=== PATIENT | male | born 1940 | race Caucasian/White ===

== ENCOUNTER 2020-01-21 19:17 | Inpatient (IN) ==
[2020-01-21] MEDS ORDERED: CEFEPIME 2,000 MG/20 ML VIAL IV STA (19:30)
[2020-01-21] MEDS ORDERED: SODIUM CHLORIDE 0.9% 1000ML 1,000 ML IV SCH (19:30)
[2020-01-21] MEDS ORDERED: ACETAMINOPHEN 1,000 MG/100 ML VIAL IV STA (19:34)
--- NOTE | 2020-01-21 19:37 | Emergency Department Note ---
Impression & Plan Hypoxia, Atrial fibrillation with rapid ventricular response, Pneumonia, COVID- 19, Elevated troponin ED Provider Note NAME: MARISA Calderon [id number] MAHKOVEC AGE: 79 SEX: M : 1940 ARRIVES VIA: Ambulance INFORMANT: [Patient][ems, guards] ED PROVIDER(S): [John Ahumada MD] CHIEF COMPLAINT: Illness HISTORY OF PRESENT ILLNESS: The patient is a 79-year-old male who is an inmate at the [facility]. The patient has not felt well for about a week or so. He just has felt washed out. Yesterday, he had some diarrhea, no vomiting. No diarrhea today. He has had a slight stuffy nose and a slight cough. Today, he was noted to be tachycardic, he seemed short of breath as per the penitentiary staff. The patient was sent by EMS for evaluation. The patient currently denies any breathing difficulty. He denies any chest pain. He has no abdominal pain. He denies body aches or sore throat. He has no known coronavirus exposures however, he is at [facility] and there is currently a Covid outbreak at that facility. Of note, the patient is a very poor historian. REVIEW OF SYSTEMS: See HPI for pertinent positives and negatives. A total of ten systems were reviewed and were otherwise negative. PMHx/PSHx: See Below SOCIAL HISTORY: See Below. PHYSICAL EXAM: GENERAL: Patient is in mild distress, shivering. HEENT: No acute trauma, normocephalic atraumatic, mucous membranes moist, no nasal congestion, no scleral icterus. NECK: No stridor, no adenopathy, no meningismus, trachea is midline. LUNGS: Speaks in full sentences, no respiratory distress, no obvious wheeze, slightly increased respiratory rate. HEART: Tachycardic and irregular, equal radial pulses bilaterally. ABDOMEN: Soft, nontender, bowel sounds positive, no hernias, no peritonitis. EXTREMITIES: No cyanosis or edema, full range of motion of all the joints without pain or difficulty, no signs for acute trauma. NEUROLOGIC: Oriented x 3, no acute motor or sensory deficits, no focal weakness. SKIN: No rash, no jaundice, no diaphoresis. DIFFERENTIAL DIAGNOSIS: Sepsis, UTI, pneumonia, metabolic, electrolyte abnormalities, coronavirus, influenza, rapid A. fib or a flutter, cardiac sources, intracerebral event, toxicologic, neurologic, as well as other pathologies. EMERGENCY DEPARTMENT COURSE/PROCEDURES: ECG: Indication was tachycardia. The ECG shows rapid atrial fibrillation with a rate of 128. There is some nonspecific ST change and some ST depressions laterally. No ST elevation. QTc is 478. Compared to an ECG from 22 March 2014, the rate has increased, the lateral T wave changes are more pronounced. Continuous Cardiac Monitoring: An order was placed for continuous cardiac monitoring. The monitor shows a rate of 91 with atrial fibrillation Critical Care Note: I have personally spent 42 minutes of critical care time in the direct management of this patient. This includes bedside care, interpretation of diagnostic studies, and testing, discussion with consultants, patient, and family members, and other required patient management activities. This 42 minutes is in excess of all separately billable procedures.. MEDICAL DECISION MAKING: There is no leukocytosis or concerning anemia. There is a normal platelet count. No concerning coagulopathy. Creatinine is somewhat elevated at 1.49, this could be consistent with dehydration. Lactic acid is not elevated making sepsis less likely. There were a few subtle liver enzyme elevations. ECG shows a rapid A. fib with some lateral ST depression. No ST elevation. Cardiac troponin testing was slightly elevated consistent with cardiac injury or strain or possibly mismatch. Chest film does show a right lower lung and midlung pneumonia. Covid testing returned positive. Influenza testing returned negative. On my initial exam, the patient did look somewhat short of breath. He was in a rapid A. fib. The patient was aggressively managed. He received IV Tylenol, he was given oral Motrin. Patient was given IV cefepime as empiric antibiotic coverage. He received 1 L of IV saline. Because of his hypoxia and Covid diagnosis, he was given a dose of IV dexamethasone. He received IV Lopressor to help control the heart rate. The patient's looking improved. His heart rate is now much better controlled, he looks more comfortable. Patient is in need of a hospital stay. I did speak to the patient and the guards. I spoke with case management. The on-call hospitalist has been consulted. Past Med/Surg History Medical History Atrial fibrillation Atrial fibrillation and flutter Hypertension Other nonrheumatic aortic valve disorders PAD (peripheral artery disease) Social History Smoking Status: Former smoker Tobacco Type: Cigarettes Preferred Language: German Feels Safe at Home: Yes Allergies Allergies Allergy/AdvReac Type Severity Reaction Status Date / Time No Known Allergies Allergy Verified 01/21/20 20:42 Home Meds Home Medications Medication Instructions Recorded Confirmed atorvastatin 20 mg tablet 20 mg PO HS 07/14/19 01/21/20 metoprolol tartrate 50 mg tablet 50 mg PO BID tab 07/15/19 01/21/20 aspirin 81 mg PO DAILY 01/21/20 01/21/20 Results & Data (ED) Vital Signs Vital Signs - 24 hr 01/21/20 19:32 01/21/20 19:33 01/21/20 19:45 Temperature 38.2 C H Temperature Source Oral Pulse Rate 128 H 131 H 117 H Pulse Rate from SpO2 Sensor 142 H 139 H 140 H Pulse Rhythm Regular Pulse Strength Normal Respiratory Rate 31 H 32 H 32 H Respiratory Effort / Characteristics Non-Labored Spontaneous Respiratory Depth Normal Respiratory Pattern Regular Blood Pressure 146/97 H 146/97 H Blood Pressure Mean 111 113 Blood Pressure Position Lying Pulse Oximetry 92 92 93 Oxygen Delivery Method Room Air Oxygen Flow Rate 2 Sepsis Recent Fever Within 48 Hours Yes Sepsis New/Unexplained Change in Mental Status No Sepsis Action Taken by Nursing Physician Notified 01/21/20 19:48 01/21/20 20:00 01/21/20 20:01 Temperature Temperature Source Pulse Rate 108 H Pulse Rate from SpO2 Sensor 123 H Pulse Rhythm Pulse Strength Respiratory Rate 36 H 28 H Respiratory Effort / Characteristics Short of Breath Respiratory Depth Respiratory Pattern Blood Pressure Blood Pressure Mean Blood Pressure Position Pulse Oximetry 87 L 92 94 Oxygen Delivery Method Room Air Nasal Cannula Oxygen Flow Rate 2 Sepsis Recent Fever Within 48 Hours Sepsis New/Unexplained Change in Mental Status Sepsis Action Taken by Nursing 01/21/20 20:15 01/21/20 20:16 01/21/20 20:30 Temperature Temperature Source Pulse Rate 121 H 121 H 92 H Pulse Rate from SpO2 Sensor 122 H 119 H 105 H Pulse Rhythm Pulse Strength Respiratory Rate 32 H 32 H 37 H Respiratory Effort / Characteristics Short of Breath Other Respiratory Depth Respiratory Pattern Blood Pressure 142/89 H 113/76 Blood Pressure Mean 94 78 Blood Pressure Position Pulse Oximetry 96 94 93 Oxygen Delivery Method Nasal Cannula Nasal Cannula Oxygen Flow Rate 2 2 Sepsis Recent Fever Within 48 Hours Sepsis New/Unexplained Change in Mental Status Sepsis Action Taken by Nursing 01/21/20 20:31 01/21/20 20:40 Temperature 38.8 C H Temperature Source Oral Pulse Rate 89 Pulse Rate from SpO2 Sensor 99 H Pulse Rhythm Pulse Strength Respiratory Rate 36 H Respiratory Effort / Characteristics Respiratory Depth Respiratory Pattern Blood Pressure Blood Pressure Mean Blood Pressure Position Pulse Oximetry 94 Oxygen Delivery Method Oxygen Flow Rate Sepsis Recent Fever Within 48 Hours Sepsis New/Unexplained Change in Mental Status Sepsis Action Taken by Custodial Medications Current Medication List: was personally reviewed by me Laboratory Data Attestation: I reviewed the patient's lab results. Result diagrams: 01/21/20 19:40 01/21/20 19:40 Lab Results 01/21/20 01/21/20 01/21/20 Range/Units 19:40 19:40 19:40 WBC 6.46 (4.8-10.8) K/uL RBC 4.29 L (4.7-6.1) M/uL Hgb 13.1 L (14.0-18.0) g/dL Hct 38.1 L (42-52) % MCV 88.8 (80-100) fL MCH 30.5 (25-34) pg MCHC 34.4 (32-36) g/dL RDW Std Deviation 46.1 (36.4-46.3) fL RDW Coeff of Gloria 14.1 (11.5-14.5) % Plt Count 133 (130-400) K/uL MPV 11.4 H (7.4-10.4) fL Immature Gran % (Auto) 0.3 % Neut % (Auto) 88.9 % Lymph % (Auto) 6.3 % [place] % (Auto) 4.5 % Eos % (Auto) 0.0 % Baso % (Auto) 0.0 % Neut # (Auto) 5.74 (1.4-6.5) K/uL Lymph # (Auto) 0.41 L (1.2-3.4) K/uL [place] # (Auto) 0.29 (0.11-0.59) K/uL Eos # (Auto) 0.00 (0-0.5) K/uL Baso # (Auto) 0.00 (0-0.2) K/uL Immature Gran # (Auto) 0.02 (0.00-0.02) K/uL PT 13.5 H (9.0-12.0) Seconds INR 1.3 H (0.9-1.1) APTT 30.8 (21.0-31.0) Seconds PTT Ratio 1.1 Sodium 132 L (136-145) mmol/L Potassium 3.9 (3.5-5.1) mmol/L Chloride 100 (98-107) mmol/L Carbon Dioxide 24 (21-32) mmol/L Anion Gap 8.0 (3-11) BUN 27 H (7-18) mg/dl Creatinine 1.49 H (0.6-1.4) mg/dl Est Cr Clr Drug Dosing 46.4 ml/min Est GFR ( Amer) 51.4 Est GFR (Non-Af Amer) 44.3 BUN/Creatinine Ratio 17.9 (10-20) Glucose 155 H (70-99) mg/dl Lactate (0.4-2.0) mmol/L Calcium 8.3 L (8.5-10.1) mg/dl Magnesium 1.9 (1.8-2.4) mg/dl Total Bilirubin 1.1 H (0.2-1) mg/dl AST 47 H (15-37) U/L ALT 23 (12-78) U/L Alkaline Phosphatase 68 (45-117) U/L Troponin I 0.081 H* (0-0.045) ng/ml Total Protein 7.3 (6.4-8.2) gm/dl Albumin 3.5 (3.4-5.0) gm/dl Globulin 3.8 (2.5-4.0) gm/dl Albumin/Globulin Ratio 0.9 (0.9-2) COVID-19 Eval Order Influ A Molecular Assay (Negative) Influ B Molecular Assay (Negative) SARS-CoV-2, RNA, NAAT (NEGATIVE) 01/21/20 01/21/20 01/21/20 Range/Units 19:40 19:40 19:40 WBC (4.8-10.8) K/uL RBC (4.7-6.1) M/uL Hgb (14.0-18.0) g/dL Hct (42-52) % MCV (80-100) fL MCH (25-34) pg MCHC (32-36) g/dL RDW Std Deviation (36.4-46.3) fL RDW Coeff of Gloria (11.5-14.5) % Plt Count (130-400) K/uL MPV (7.4-10.4) fL Immature Gran % (Auto) % Neut % (Auto) % Lymph % (Auto) % [place]qu[place] % (Auto) % Eos % (Auto) % Baso % (Auto) % Neut # (Auto) (1.4-6.5) K/uL Lymph # (Auto) (1.2-3.4) K/uL [place] # (Auto) (0.11-0.59) K/uL Eos # (Auto) (0-0.5) K/uL Baso # (Auto) (0-0.2) K/uL Immature Gran # (Auto) (0.00-0.02) K/uL PT (9.0-12.0) Seconds INR (0.9-1.1) APTT (21.0-31.0) Seconds PTT Ratio Sodium (136-145) mmol/L Potassium (3.5-5.1) mmol/L Chloride (98-107) mmol/L Carbon Dioxide (21-32) mmol/L Anion Gap (3-11) BUN (7-18) mg/dl Creatinine (0.6-1.4) mg/dl Est Cr Clr Drug Dosing ml/min Est GFR ( Amer) Est GFR (Non-Af Amer) BUN/Creatinine Ratio (10-20) Glucose (70-99) mg/dl Lactate (0.4-2.0) mmol/L Calcium (8.5-10.1) mg/dl Magnesium (1.8-2.4) mg/dl Total Bilirubin (0.2-1) mg/dl AST (15-37) U/L ALT (12-78) U/L Alkaline Phosphatase (45-117) U/L Troponin I (0-0.045) ng/ml Total Protein (6.4-8.2) gm/dl Albumin (3.4-5.0) gm/dl Globulin (2.5-4.0) gm/dl Albumin/Globulin Ratio (0.9-2) COVID-19 Eval [facility] A Molecular Assay Negative (Negative) Influ B Molecular Assay Negative (Negative) SARS-CoV-2, RNA, NAAT POSITIVE A* (NEGATIVE) 01/21/20 Range/Units 19:48 WBC (4.8-10.8) K/uL RBC (4.7-6.1) M/uL Hgb (14.0-18.0) g/dL Hct (42-52) % MCV (80-100) fL MCH (25-34) pg MCHC (32-36) g/dL RDW Std Deviation (36.4-46.3) fL RDW Coeff of Gloria (11.5-14.5) % Plt Count (130-400) K/uL MPV (7.4-10.4) fL Immature Gran % (Auto) % Neut % (Auto) % Lymph % (Auto) % [place] % (Auto) % Eos % (Auto) % Baso % (Auto) % Neut # (Auto) (1.4-6.5) K/uL Lymph # (Auto) (1.2-3.4) K/uL [place] # (Auto) (0.11-0.59) K/uL Eos # (Auto) (0-0.5) K/uL Baso # (Auto) (0-0.2) K/uL Immature Gran # (Auto) (0.00-0.02) K/uL PT (9.0-12.0) Seconds INR (0.9-1.1) APTT (21.0-31.0) Seconds PTT Ratio Sodium (136-145) mmol/L Potassium (3.5-5.1) mmol/L Chloride (98-107) mmol/L Carbon Dioxide (21-32) mmol/L Anion Gap (3-11) BUN (7-18) mg/dl Creatinine (0.6-1.4) mg/dl Est Cr Clr Drug Dosing ml/min Est GFR ( Amer) Est GFR (Non-Af Amer) BUN/Creatinine Ratio (10-20) Glucose (70-99) mg/dl Lactate 2.0 (0.4-2.0) mmol/L Calcium (8.5-10.1) mg/dl Magnesium (1.8-2.4) mg/dl Total Bilirubin (0.2-1) mg/dl AST (15-37) U/L ALT (12-78) U/L Alkaline Phosphatase (45-117) U/L Troponin I (0-0.045) ng/ml Total Protein (6.4-8.2) gm/dl Albumin (3.4-5.0) gm/dl Globulin (2.5-4.0) gm/dl Albumin/Globulin Ratio (0.9-2) COVID-19 Eval Order Influ A Molecular Assay (Negative) Influ B Molecular Assay (Negative) SARS-CoV-2, RNA, NAAT (NEGATIVE) Administered Medications Discontinued Medications Dexamethasone (Dexamethasone Sod Inj 10 Mg/Ml Vial) 6 mg IV NOW ONE Stop: 01/21/20 20:08 Last Admin: 01/21/20 20:15 Dose: 6 mg Documented by: [id number] Sodium Chloride (Nss 1000ml) 1,000 mls @ 999 mls/hr IV .Q1H1M ASAEL Stop: 01/21/20 20:30 Last Admin: 01/21/20 19:55 Dose: 999 mls/hr Documented by: [id number] Cefepime HCl (Maxipime) 2,000 mg in 20 mls @ 5 mls/min IV NOW STA; Protocol Stop: 01/21/20 19:33 Last Admin: 01/21/20 20:15 Dose: 5 mls/min Documented by: [id number] Acetaminophen (Ofirmev) 1,000 mg in 100 mls @ 400 mls/hr IV NOW STA Stop: 01/21/20 19:48 Last Infusion: 01/21/20 20:10 Dose: 0 mls/hr Documented by: [id number] Admin: 01/21/20 19:55 Dose: 400 mls/hr Documented by: [id number] Metoprolol Tartrate (Metoprolol Tartrate 1 Mg/Ml Vial) 5 mg IV NOW STA Stop: 01/21/20 20:08 Last Admin: 01/21/20 20:15 Dose: 5 mg Documented by: [id number] Imaging Data Radiologist's Impression: XR chest 1V portable HISTORY: SEPSIS COMPARISON: Chest 03/22/2014. FINDINGS: No pneumothorax. No pleural effusions. The heart remains mildly enlarged. Mild diffuse interstitial/vascular thickening. There are hazy airspace opacities within the right perihilar location and lower lung zone. IMPRESSION: 1. Hazy airspace opacities within the right perihilar location and lower lung zone. This may represent a viral pneumonia. One-month chest x-ray follow-up recommended to ensure resolution of the right hilar hazy airspace opacity. 2. Cardiomegaly and mild diffuse interstitial/vascular thickening. This could represent a superimposed pulmonary edema. Discharge Plan Visit Data Chief Complaint: Illness Stated Complaint: LETHARGIC, WEAK, SOB, COUGH ED Provider: John Ahumada Discharge Problem: Hypoxia, Atrial fibrillation with rapid ventricular response, Pneumonia, COVID- 19, Elevated troponin Patient Disposition: Admitted As Inpatient Condition: Fair Forms Stand Alone Forms: [employer] Prescriptions Prescriptions: No Action atorvastatin 20 mg tablet 20 mg PO HS RF: 0 metoprolol tartrate 50 mg tablet 50 mg PO BID RF: 0 aspirin 81 mg Tablet,Chewable 81 mg PO DAILY RF: 0 Referrals Referrals: Wang ELIZONDO [Primary Care Provider] - Discharge Problem: Pneumonia Qualifiers: Pneumonia type: due to unspecified organism Laterality: right Lung location: unspecified part of lung Qualified Code(s): J18.9 - Pneumonia, unspecified organism
[2020-01-21] MEDS ORDERED: DEXAMETHASONE SOD INJ 10 MG/ML VIAL IV ONE (20:07)
[2020-01-21] MEDS ORDERED: METOPROLOL TARTRATE 1 MG/ML VIAL IV STA (20:07)
[2020-01-21 20:10] LABS: Hematocrit (blood only) 38.1 % (42-52); Hemoglobin 13.1 g/dL (14.0-18.0); Immature Granulocytes # (auto) 0.02 K/uL (0.00-0.02); Immature Granulocytes % (auto) 0.3 %; Lymphocytes # (auto) 0.41 K/uL (1.2-3.4); Lymphocytes % (auto) 6.3 %; Mean Corpuscular Hemoglobin 30.5 pg (25-34); Mean Corpuscular Hgb Conc 34.4 g/dL (32-36); Mean Corpuscular Volume 88.8 fL (80-100); Mean Platelet Volume 11.4 fL (7.4-10.4); Monocytes # (auto) 0.29 K/uL (0.11-0.59); Monocytes % (auto) 4.5 %; Neutrophils # (auto) 5.74 K/uL (1.4-6.5); Neutrophils % (auto) 88.9 %; Platelet Count 133 K/uL (130-400); RDW Coefficient of Variation 14.1 % (11.5-14.5); RDW Standard Deviation 46.1 fL (36.4-46.3); Red Blood Count 4.29 M/uL (4.7-6.1); White Blood Count 6.46 K/uL (4.8-10.8)
[2020-01-21 20:23] LABS: INR 1.3 (0.9-1.1); Partial Thromboplastin Ratio 1.1; Partial Thromboplastin Time 30.8 Seconds (21.0-31.0); Prothrombin Time 13.5 Seconds (9.0-12.0)
[2020-01-21 20:28] LABS: Albumin Level 3.5 gm/dl (3.4-5.0); BUN Creatinine Ratio 17.9 (10-20); Calcium 8.3 mg/dl (8.5-10.1); Creatinine Clr Calc Pharmacy 46.4 ml/min; Est GFR (African American) 51.4; Est GFR (Non-African American) 44.3; Magnesium 1.9 mg/dl (1.8-2.4); Potassium 3.9 mmol/L (3.5-5.1)
[2020-01-21 20:36] LABS: Albumin Globulin Ratio 0.9 (0.9-2); Bilirubin,Total 1.1 mg/dl (0.2-1); Globulin 3.8 gm/dl (2.5-4.0); Total Protein 7.3 gm/dl (6.4-8.2); Troponin I 0.081 ng/ml (0-0.045)
--- NOTE | 2020-01-21 20:37 | XRay Report ---
XR chest 1V portable HISTORY: SEPSIS COMPARISON: Chest 03/22/2014. FINDINGS: No pneumothorax. No pleural effusions. The heart remains mildly enlarged. Mild diffuse inte rstitial/vascular thickening. There are hazy airspace opacities within the right perihilar location a nd lower lung zone. IMPRESSION: 1. Hazy airspace opacities within the right perihilar location and lower lung zone. This may represen t a viral pneumonia. One-month chest x-ray follow-up recommended to ensure resolution of the right hi lar hazy airspace opacity. 2. Cardiomegaly and mild diffuse interstitial/vascular thickening. This could represent a superimpose d pulmonary edema. ACT 112: Negative or not required by law. Electronically signed by: Jamie Rosales M.D. 01/21/2020 8:35 PM
[2020-01-21] MEDS ORDERED: IBUPROFEN 600 MG TAB PO STA (20:41)
[2020-01-21 20:46] LABS: Influenza A virus by PCR Negative (Negative); Influenza B virus by PCR Negative (Negative)
[2020-01-21 21:28] LABS: D Dimer 2800 ug/L FEU (0-500)
[2020-01-21] MEDS ORDERED: cefTRIAXone SODIUM 1,000 MG in DEXTROSE 5% 50 ML IV SCH (22:45)
[2020-01-21] MEDS ORDERED: NITROGLYCERIN SL 0.4 MG/TAB TAB SL PRN (22:45)
[2020-01-21] MEDS ORDERED: ONDANSETRON INJ 2 MG/ML 2 ML VIAL IV PRN (22:45)
[2020-01-21] MEDS ORDERED: REMDESIVIR 200 MG in SODIUM CHLORIDE 0.9% 210 ML IV STA (22:45)
[2020-01-21] MEDS: SODIUM CHLORIDE 0.9% 1000ML 1,000 ML IV SCH (23:14)
[2020-01-21] MEDS: METOPROLOL TARTRATE 50 MG TAB PO SCH (23:40)
[2020-01-21] MEDS: cefTRIAXone SODIUM 2,000 MG in DEXTROSE 5% 50 ML IV SCH (23:40)
--- NOTE | 2020-01-21 23:41 | History & Physical Report ---
Date of Service January 21, 2020 Assessment & Plan (1) Pneumonia due to COVID-19 virus: Pneumonia due to COVID-19 virus with hypoxia- Decadron 6 mg IV every morning Convalescent plasma, consent obtained Remdesivir IV per protocol Ceftriaxone 2 g IV daily Azithromycin 500 mg IV daily Ventolin HFA 2 puffs 4 times daily, and every 2 hours as needed Nasal cannula oxygen, titrate to keep pulse ox 94 to 95% Present on Admission?: Yes (2) Hypoxia: See above Present on Admission?: Yes (3) Elevated troponin: Elevated troponin/atrial fib with RVR/hypertension/MR/TR/- The patient will be admitted to telemetry for serial cardiac enzymes, serial EKG's, cardiac rhythm monitoring. Rate control improved with Lopressor 5 mg IV in the ED. Continue metoprolol tartrate 50 mg p.o. twice daily and aspirin 81 mg daily Lopressor 5 mg IV every 4 hours as needed heart rate greater than 110 Consult cardiology Present on Admission?: Yes (4) Atrial fibrillation with rapid ventricular response: Present on Admission?: Yes (5) HTN (hypertension): Present on Admission?: Yes (6) Mitral regurgitation: (7) Tricuspid regurgitation: (8) Aortic valve disorder: (9) Atrial fibrillation, permanent: (10) Renal insufficiency: Creatinine 1.49 upon admission, with unknown baseline. NSS at 60 mils per hour repeat laboratories in a.m. Present on Admission?: Yes (11) Elevated d-dimer: D-dimer 2800. We will place on therapeutic Lovenox 1 mg/kg subcu every 12 hours, to also cover stroke risk with A. fib with RVR. Present on Admission?: Yes Admission and Anticipated Discharge Date Admission Date: January 21, 2020 History of Present Illness Chief Complaint: The patient presents to the emergency department with complaint of generalized weakness and fatigue, slight stuffy nose and cough, shortness of breath and increased heart rate as noted by long term staff Primary Care Provider: CARO Piña The patient is a 79-year-old male resident of [facility] with a past medical history including mitral regurgitation, tricuspid regurgitation, LVH, hypertension, aortic stenosis and permanent atrial fibrillation. He presents with symptoms as noted above. Work-up in the emergency department included the following significant laboratories: Hemoglobin 13.1, INR 1.3, sodium 132, creatinine 1.49, troponin 0 0.081, AST 47. D-dimer was 2800, GFR was 44.3. COVID-19 was positive. Maximum temperature was 101.8. Chest x-ray showed bilateral infiltrates, right greater than left, with diagnoses inclusive of viral pneumonia. There was also cardiomegaly. Allergies Allergy/AdvReac Type Severity Reaction Status Date / Time No Known Allergies Allergy Verified 01/21/20 20:42 Home Medications Medication Instructions Recorded Confirmed Type atorvastatin 20 mg tablet 20 mg PO HS 07/14/19 01/21/20 History metoprolol tartrate 50 mg tablet 50 mg PO BID tab 07/15/19 01/21/20 History aspirin 81 mg PO DAILY 01/21/20 01/21/20 History Past Med/Surg History Medical History Atrial fibrillation Atrial fibrillation and flutter Hypertension Other nonrheumatic aortic valve disorders PAD (peripheral artery disease) Social History Smoking Status: Former smoker Tobacco Type: Cigarettes Smoking End Date: 30 years; Second Hand Exposure: No; Do You Dip or Chew Tobacco: No; Tobacco Cessation Education Requested by Patient: No Hx Alcohol Use: No Hx Substance Use: No Preferred Language: Lithuanian Communication Ability: Effective 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 Beliefs That Will Affect Care: None Current Living Situation: Other Current Living Situation Comment: [facility] Other Information That Helps Us Care for You: No Feels Safe at Home: Yes Safety Concerns: Feels Safe At This Time Assistive Devices: Oxygen - Continuous Review of Systems Review of Systems: The patient denies chest pain, palpitations, lower extremity swelling, sore throat, fevers, chills, sweats, vomiting, diarrhea , constipation, abdominal pain, pelvic pain, blood in urine or stool, dysuria, urinary frequency or urgency, lightheadedness, dizziness, headache, memory loss, loss of consciousness, rash, abnormal bruising or bleeding, imbalance, focal weakness, numbness or tingling in arms or legs, or night sweats. The review of systems is otherwise negative other than for that already noted above, and at least 10 systems have been reviewed. Physical Exam Physical Exam: The patient is awake, alert and oriented 3, disheveled appearing, normocephalic and atraumatic, lying in bed and in no acute distress. HEENT--PERRL, EOMI, mucous membranes and oropharynx dry. Neck--supple. No JVD. No bruits. Thyroid normal, trachea midline, no adenopathy. Heart--normal S1 and S2. No murmurs, rubs or gallops. Lungs--coarse breath sounds bilaterally. No respiratory distress, no accessory muscle use. Abdomen--normal bowel sounds and soft. Nontender. Nondistended, no hernias or masses, no organomegaly. Extremities--no cyanosis or clubbing. No edema. Dermatologic--normal skin turgor, normal color, no abnormal lymph nodes, no rash. Neurologic--cranial nerves II through XII grossly intact. Rheumatologic--normal range of motion. Psychiatric--normal affect. Results & Data Results & Data ([facility]) Vital Signs (Past 12 Hours) Vital Signs Temp Pulse Pulse Resp BP BP Pulse Ox 01/21/20 23:29 94 H 01/21/20 22:51 98.4 F 96 H 20 143/82 H 93 01/21/20 22:01 92 H 32 H 97 01/21/20 22:00 102 H 31 H 120/89 97 01/21/20 21:46 92 H 37 H 97 01/21/20 21:45 100 H 35 H 117/76 97 01/21/20 21:31 95 H 33 H 97 01/21/20 21:30 97 H 35 H 118/68 97 01/21/20 21:16 81 25 H 94 01/21/20 21:15 102 H 34 H 118/90 95 01/21/20 21:01 96 H 29 H 116/73 96 01/21/20 21:00 97 H 37 H 92 01/21/20 20:46 88 35 H 96 01/21/20 20:45 95 H 31 H 111/68 96 01/21/20 20:40 101.8 F H 01/21/20 20:31 89 36 H 94 01/21/20 20:30 92 H 37 H 113/76 93 01/21/20 20:16 121 H 32 H 94 01/21/20 20:15 121 H 32 H 142/89 H 96 01/21/20 20:01 28 H 94 01/21/20 20:00 108 H 36 H 92 01/21/20 19:48 87 L 01/21/20 19:45 117 H 32 H 93 01/21/20 19:33 100.8 F H 131 H 32 H 146/97 H 92 01/21/20 19:32 128 H 31 H 146/97 H 92 Laboratory Results Laboratory Results WBC 6.46 K/uL (4.8-10.8) 01/21/20 19:40 RBC 4.29 M/uL (4.7-6.1) L 01/21/20 19:40 Hgb 13.1 g/dL (14.0-18.0) L 01/21/20 19:40 Hct 38.1 % (42-52) L 01/21/20 19:40 MCV 88.8 fL (80-100) 01/21/20 19:40 MCH 30.5 pg (25-34) 01/21/20 19:40 MCHC 34.4 g/dL (32-36) 01/21/20 19:40 RDW Std Deviation 46.1 fL (36.4-46.3) 01/21/20 19:40 RDW Coeff of Gloria 14.1 % (11.5-14.5) 01/21/20 19:40 Plt Count 133 K/uL (130-400) 01/21/20 19:40 MPV 11.4 fL (7.4-10.4) H 01/21/20 19:40 Immature Gran % (Auto) 0.3 % 01/21/20 19:40 Neut % (Auto) 88.9 % 01/21/20 19:40 Lymph % (Auto) 6.3 % 01/21/20 19:40 Blaine % (Auto) 4.5 % 01/21/20 19:40 Eos % (Auto) 0.0 % 01/21/20 19:40 Baso % (Auto) 0.0 % 01/21/20 19:40 Neut # (Auto) 5.74 K/uL (1.4-6.5) 01/21/20 19:40 Lymph # (Auto) 0.41 K/uL (1.2-3.4) L 01/21/20 19:40 Blaine # (Auto) 0.29 K/uL (0.11-0.59) 01/21/20 19:40 Eos # (Auto) 0.00 K/uL (0-0.5) 01/21/20 19:40 Baso # (Auto) 0.00 K/uL (0-0.2) 01/21/20 19:40 Immature Gran # (Auto) 0.02 K/uL (0.00-0.02) 01/21/20 19:40 PT 13.5 Seconds (9.0-12.0) H 01/21/20 19:40 INR 1.3 (0.9-1.1) H 01/21/20 19:40 APTT 30.8 Seconds (21.0-31.0) 01/21/20 19:40 PTT Ratio 1.1 01/21/20 19:40 D-Dimer 2800 ug/L FEU (0-500) H* 01/21/20 19:40 Sodium 132 mmol/L (136-145) L 01/21/20 19:40 Potassium 3.9 mmol/L (3.5-5.1) 01/21/20 19:40 Chloride 100 mmol/L (98-107) 01/21/20 19:40 Carbon Dioxide 24 mmol/L (21-32) 01/21/20 19:40 Anion Gap 8.0 (3-11) 01/21/20 19:40 BUN 27 mg/dl (7-18) H 01/21/20 19:40 Creatinine 1.49 mg/dl (0.6-1.4) H 01/21/20 19:40 Est Cr Clr Drug Dosing 46.4 ml/min 01/21/20 19:40 Est GFR ( Amer) 51.4 01/21/20 19:40 Est GFR (Non-Af Amer) 44.3 01/21/20 19:40 BUN/Creatinine Ratio 17.9 (10-20) 01/21/20 19:40 Glucose 155 mg/dl (70-99) H 01/21/20 19:40 Lactate 2.0 mmol/L (0.4-2.0) 01/21/20 19:48 Calcium 8.3 mg/dl (8.5-10.1) L 01/21/20 19:40 Magnesium 1.9 mg/dl (1.8-2.4) 01/21/20 19:40 Total Bilirubin 1.1 mg/dl (0.2-1) H 01/21/20 19:40 AST 47 U/L (15-37) H 01/21/20 19:40 ALT 23 U/L (12-78) 01/21/20 19:40 Alkaline Phosphatase 68 U/L (45-117) 01/21/20 19:40 Troponin I 0.081 ng/ml (0-0.045) H* 01/21/20 19:40 Total Protein 7.3 gm/dl (6.4-8.2) 01/21/20 19:40 Albumin 3.5 gm/dl (3.4-5.0) 01/21/20 19:40 Globulin 3.8 gm/dl (2.5-4.0) 01/21/20 19:40 Albumin/Globulin Ratio 0.9 (0.9-2) 01/21/20 19:40 Procalcitonin 0.31 ng/ml (0-0.5) 01/21/20 19:40 COVID-19 Eval Order Covid19 [facility] 01/21/20 19:40 Influ A Molecular Assay Negative (Negative) 01/21/20 19:40 Influ B Molecular Assay Negative (Negative) 01/21/20 19:40 SARS-CoV-2, RNA, NAAT POSITIVE (NEGATIVE) A* 01/21/20 19:40 Blood Type A Positive 01/21/20 21:07 Antibody Screen NEGATIVE 01/21/20 21:07 Diagnostic Findings [facility], [phone] XRay Report Patient: MARISA MURILLO [id number] Date: 01/21/20MR#: [id number]: SCI ROCKVIEWAcct ID:[id number]: BOX [facility]: [facility] Zip: [place] [id number]: [id number]: EDSex: MRoom/Bed:Att Phy:Diagnosis: CARDIAC ASSESSMENTPri Phy: SCI RockviewService Date: 01/21/20Fam Phy: SCI RockviewInterpreting Phy: Jamie Rosales MDAdmit Phy: Ordering Phy: Feese, John J.,M.D. cc: ~ XR chest 1V portable HISTORY: SEPSIS COMPARISON: Chest 03/22/2014. FINDINGS: No pneumothorax. No pleural effusions. The heart remains mildly enlarged. Mild diffuse interstitial/vascular thickening. There are hazy airspace opacities within the right perihilar location and lower lung zone. IMPRESSION: 1. Hazy airspace opacities within the right perihilar location and lower lung zone. This may represent a viral pneumonia. One-month chest x-ray follow-up recommended to ensure resolution of the right hilar hazy airspace opacity. 2. Cardiomegaly and mild diffuse interstitial/vascular thickening. This could represent a superimposed pulmonary edema. ACT 112: Negative or not required by law. Electronically signed by: Jamie Rosales M.D. 01/21/2020 8:35 PM Dictated: 01/21/202032Transcribed: 01/21/202032 Code Status & VTE Plan Code Status Full code VTE Prophylaxis Plan VTE Prophylaxis will be ordered: Yes PG Care Time/CCT Total # of Minutes Spent Total Time Spent with Patient: Total time spent is greater than 50% in coordination of care (as documented) at patient's floor/unit and/or counseling patient: Coding Level of Care Code 48215 Initial Inpt Care Lvl 3 Diagnoses Pneumonia due to COVID-19 virus U07.1; J12.89 Hypoxia R09.02 Elevated troponin R77.8 Atrial fibrillation with rapid ventricular response I48.91 HTN (hypertension) I10 Mitral regurgitation I34.0 Tricuspid regurgitation I07.1 Aortic valve disorder I35.9 Atrial fibrillation, permanent I48.21 Renal insufficiency N28.9 Elevated d-dimer R79.89
[2020-01-22] MEDS: ALBUTEROL HFA 8 GM INHALER INH SCH ×5 (01:31→19:01)
[2020-01-22 02:42] LABS: Appearance Urine Clear (Clear); Bilirubin Urine Negative (Negative); Blood Urine 1+ (Negative); Color Urine Dark Yellow; Epithelial Cell Urine Auto 20-30 /lpf (0-5); Glucose Urine UA Negative (Negative); Ketones Urine Trace (Negative); Leukocyte Esterase Urine Negative (Negative); Nitrite Urine Negative (Negative); Protein Urine 2+ (Negative); RBC Urine Automated 0-4 /hpf (0-4); Specific Gravity Urine 1.031 (1.000-1.030); Urobilinogen Urine Negative (Negative)
[2020-01-22 02:53] LABS: Bacteria Urine Automated 1+ (Negative); Granular Casts Urine 20-30 /lpf (0)
[2020-01-22 02:54] LABS: Mucus Urine Present (None Prsent)
[2020-01-22 04:50] LABS: Albumin Level 2.9 gm/dl (3.4-5.0); BUN Creatinine Ratio 21.1 (10-20); Calcium 7.9 mg/dl (8.5-10.1); Creatinine Clr Calc Pharmacy 52.7 ml/min; Est GFR (African American) 61.1; Est GFR (Non-African American) 52.8; Magnesium 2.1 mg/dl (1.8-2.4); Potassium 3.9 mmol/L (3.5-5.1)
[2020-01-22 04:54] LABS: Hematocrit (blood only) 36.4 % (42-52); Hemoglobin 12.5 g/dL (14.0-18.0); Immature Granulocytes # (auto) 0.01 K/uL (0.00-0.02); Immature Granulocytes % (auto) 0.2 %; Lymphocytes # (auto) 0.35 K/uL (1.2-3.4); Mean Corpuscular Hemoglobin 30.5 pg (25-34); Mean Corpuscular Hgb Conc 34.3 g/dL (32-36); Mean Corpuscular Volume 88.8 fL (80-100); Mean Platelet Volume 12.4 fL (7.4-10.4); Monocytes # (auto) 0.22 K/uL (0.11-0.59); Monocytes % (auto) 4.4 %; Neutrophils # (auto) 4.39 K/uL (1.4-6.5); Neutrophils % (auto) 88.4 %; Platelet Count 133 K/uL (130-400); RDW Coefficient of Variation 14.3 % (11.5-14.5); RDW Standard Deviation 46.9 fL (36.4-46.3); White Blood Count 4.97 K/uL (4.8-10.8)
[2020-01-22 04:58] LABS: Albumin Globulin Ratio 0.8 (0.9-2); Bilirubin,Total 0.7 mg/dl (0.2-1); Globulin 3.5 gm/dl (2.5-4.0); Total Protein 6.4 gm/dl (6.4-8.2); Troponin I 0.082 ng/ml (0-0.045)
[2020-01-22] MEDS ORDERED: ASPIRIN 81 MG CHEW PO SCH (09:00)
[2020-01-22] MEDS: ENOXAPARIN 100 MG/1ML SYR SC SCH ×3 (17:12→23:23)
[2020-01-22] MEDS: dexAMETHasone 6 MG in SYRINGE 0 ML IV SCH (17:13)
[2020-01-22] MEDS: METOPROLOL TARTRATE 50 MG TAB PO SCH ×2 (17:13→19:15)
[2020-01-22] MEDS: AZITHROMYCIN 500 MG in DEXTROSE 5% 250 ML IV SCH (17:13)
[2020-01-22] MEDS: ASPIRIN 81 MG CHEW PO SCH (17:13)
[2020-01-22] MEDS: SODIUM CHLORIDE 0.9% 1000ML 1,000 ML IV SCH (17:14)
[2020-01-22 18:02] LABS: Albumin Globulin Ratio 0.7 (0.9-2); Albumin Level 2.9 gm/dl (3.4-5.0); BUN Creatinine Ratio 22.1 (10-20); Bilirubin,Total 0.6 mg/dl (0.2-1); Calcium 7.8 mg/dl (8.5-10.1); Creatinine Clr Calc Pharmacy 51.9 ml/min; Est GFR (Non-African American) 51.8; Globulin 4.1 gm/dl (2.5-4.0); Potassium 4.2 mmol/L (3.5-5.1)
[2020-01-22] MEDS: ATORVASTATIN 20 MG TAB PO SCH (19:15)
--- NOTE | 2020-01-22 19:41 | Hospitalist Progress Note ---
Date of Service January 22, 2020 Assessment & Plan (1) Pneumonia due to COVID-19 virus: With sepsis, POA, and pneumonia due to COVID-19 virus with hypoxia-stable on 3 L With fever, tachycardia, tachypnea, hypoxia, chest x-ray with pneumonia Continue Decadron 6 mg IV every morning x10-day course Convalescent plasma, consent obtained and transfused on 01/21 Continue remdesivir IV x10-day course Procalcitonin negative, so most likely do not need antibiotics but will continue for another day Continue ceftriaxone 2 g IV daily Continue azithromycin 500 mg IV daily Continue Ventolin HFA 2 puffs 4 times daily, and every 2 hours as needed Continue nasal cannula oxygen, titrate to keep pulse ox 94 to 95% -Can now discontinue IV fluids (2) Hypoxia: See above (3) Elevated troponin: Elevated troponin-troponin 0 0.081/0.082/0.035 Most likely secondary to myocardial demand ischemia in the setting of sepsis and acute illness He denies any chest pain ECG with rapid atrial fibrillation, ST and T wave changes in lateral leads and anterior leads (4) Atrial fibrillation with rapid ventricular response: Rates in the 120s on admission with sepsis Now improved with IV fluids and resolution of fever Rate control improved with Lopressor 5 mg IV in the ED. Continue metoprolol tartrate 50 mg p.o. twice daily and aspirin 81 mg daily Lopressor 5 mg IV every 4 hours as needed heart rate greater than 110 Consult cardiology pending -He is not on an anticoagulation as an outpatient for unknown reason -Continue therapeutic Lovenox for now and likely would need to go on Coumadin as the [facility] usually does not have DOACs on their formulary Will d/w Alf doctor to see if there is a contraindication for some reason to starting anticoagulation (5) HTN (hypertension): Blood pressures were elevated and now are on the low side Continue metoprolol with hold parameters (6) Mitral regurgitation: Echocardiogram from 02/2019 with normal LVEF, no wall motion abnormalities, severely enlarged left atrium, mild mitral insufficiency, mild TR, at least mild aortic stenosis (7) Tricuspid regurgitation: Moderate on echo (8) Aortic valve disorder: Mild stenosis (9) Atrial fibrillation, permanent: As above (10) Renal insufficiency: Creatinine 1.49 upon admission, with unknown baseline. NSS at 60 mils per hour was given and creatinine this morning is improved down to 1.31 With mild hyponatremia now improved with hydration Follow BMP (11) Elevated d-dimer: D-dimer 2800. Likely secondary to Covid-19 and pneumonia No chest pain, do not suspect significant PE -Regardless, we will place on therapeutic Lovenox 1 mg/kg subcu every 12 hours, to also cover stroke risk with A. fib with RVR. He will also need long-term anticoagulation (12) DVT prophylaxis: Therapeutic Lovenox Disposition-continued stay on telemetry Admission and Anticipated Discharge Date Admission Date: January 21, 2020 Subjective Patient reports having diarrhea this morning. Denies chest pain or shortness of breath. Remains on oxygen 3 L. Telemetry with atrial fibrillation with rates in the 50s to 80s. He is eating and drinking well. He reports he does not know why he was admitted to the hospital but he knows he has Covid. Review of Systems Review of Systems: All systems reviewed & are unremarkable except as noted in HPI & below Physical Exam Constitutional: WD/WN, vitals as above Eyes: + anicteric sclerae Neck: trachea midline, no thyromegaly Respiratory: normal respiratory effort Auscultation: + crackles (At the bases); no wheezes Cardiovascular: Rate/Rhythm: regular rate and + irregularly irregular Heart Sounds: + murmur (2/6 systolic at the RUSB) Chest (Breasts): Chest: normal inspection of chest Gastrointestinal (Abdomen): normal bowel sounds, soft, nontender, no hepatosplenomegaly Musculoskeletal: Extremities: extremities normal to inspection; no cyanosis and no clubbing Skin: no rashes, warm and dry Neurologic: moves all extremities and awake; no focal motor deficits Psychiatric: Orientation: alert, oriented to person, oriented to place and cooperative Lymphatic: no lymphedema Results & Data Results & Data ([facility] [place]) Vital Signs (Past 12 Hours) Vital Signs Temp Pulse Pulse Resp BP BP Pulse Ox 01/22/20 19:13 36.0 C L 79 20 140/88 99 01/22/20 19:00 86 21 161/101 H 93 01/22/20 18:58 36.8 C 84 20 161/101 H 93 01/22/20 18:41 36.5 C 93 H 18 136/85 99 Laboratory Results 01/22/20 01/22/20 01/22/20 Range/Units Unknown Unknown 12:32 WBC (4.8-10.8) K/uL RBC (4.7-6.1) M/uL Hgb (14.0-18.0) g/dL Hct (42-52) % MCV (80-100) fL MCH (25-34) pg MCHC (32-36) g/dL RDW Std Deviation (36.4-46.3) fL RDW Coeff of Gloria (11.5-14.5) % Plt Count (130-400) K/uL MPV (7.4-10.4) fL Immature Gran % (Auto) % Neut % (Auto) % Lymph % (Auto) % Millard % (Auto) % Eos % (Auto) % Baso % (Auto) % Neut # (Auto) (1.4-6.5) K/uL Lymph # (Auto) (1.2-3.4) K/uL Millard # (Auto) (0.11-0.59) K/uL Eos # (Auto) (0-0.5) K/uL Baso # (Auto) (0-0.2) K/uL Immature Gran # (Auto) (0.00-0.02) K/uL PT (9.0-12.0) Seconds INR (0.9-1.1) APTT (21.0-31.0) Seconds PTT Ratio D-Dimer (0-500) ug/L FEU Sodium 135 L (136-145) mmol/L Potassium 4.2 (3.5-5.1) mmol/L Chloride 104 (98-107) mmol/L Carbon Dioxide 23 (21-32) mmol/L Anion Gap 8.0 (3-11) BUN 29 H (7-18) mg/dl Creatinine 1.31 (0.6-1.4) mg/dl Est Cr Clr Drug Dosing 51.9 ml/min Est GFR ( Amer) 60.0 Est GFR (Non-Af Amer) 51.8 BUN/Creatinine Ratio 22.1 H (10-20) Glucose 172 H (70-99) mg/dl Lactate (0.4-2.0) mmol/L Calcium 7.8 L (8.5-10.1) mg/dl Magnesium (1.8-2.4) mg/dl Total Bilirubin 0.6 (0.2-1) mg/dl AST 48 H (15-37) U/L ALT 22 (12-78) U/L Alkaline Phosphatase 57 (45-117) U/L Troponin I (0-0.045) ng/ml Total Protein 7.0 (6.4-8.2) gm/dl Albumin 2.9 L (3.4-5.0) gm/dl Globulin 4.1 H (2.5-4.0) gm/dl Albumin/Globulin Ratio 0.7 L (0.9-2) Procalcitonin (0-0.5) ng/ml Specimen Hemolysis Urine Color Dark Yellow Urine Appearance Clear (Clear) Urine pH 5.0 (4.5-7.5) Ur Specific [place] 1.031 H (1.000-1.030) Urine Protein 2+ H (Negative) Urine Glucose (UA) Negative (Negative) Urine Ketones Trace H (Negative) Urine Blood 1+ H (Negative) Urine Nitrite Negative (Negative) Urine Bilirubin Negative (Negative) Urine Urobilinogen Negative (Negative) Ur Leukocyte Esterase Negative (Negative) Urine WBC (Auto) 1-5 (0-5) /hpf Urine RBC (Auto) 0-4 (0-4) /hpf U Hyaline Cast (Auto) 5-10 H (0-5) /lpf U Epithel Cells (Auto) 20-30 H (0-5) /lpf Urine Bacteria (Auto) 1+ H (Negative) Granular Casts 20-30 H (0) /lpf Urine Mucus Present A (None Prsent) Urine Yeast Not Reportable Nasal Screen MRSA (PCR) Negative (Negative) COVID-19 Eval Order Influ A Molecular Assay (Negative) Influ B Molecular Assay (Negative) SARS-CoV-2, RNA, NAAT (NEGATIVE) Blood Type Antibody Screen 01/22/20 01/22/20 01/22/20 Range/Units 12:30 03:27 03:27 WBC 4.97 (4.8-10.8) K/uL RBC 4.10 L (4.7-6.1) M/uL Hgb 12.5 L (14.0-18.0) g/dL Hct 36.4 L (42-52) % MCV 88.8 (80-100) fL MCH 30.5 (25-34) pg MCHC 34.3 (32-36) g/dL RDW Std Deviation 46.9 H (36.4-46.3) fL RDW Coeff of Gloria 14.3 (11.5-14.5) % Plt Count 133 (130-400) K/uL MPV 12.4 H (7.4-10.4) fL Immature Gran % (Auto) 0.2 % Neut % (Auto) 88.4 % Lymph % (Auto) 7.0 % Millard % (Auto) 4.4 % Eos % (Auto) 0.0 % Baso % (Auto) 0.0 % Neut # (Auto) 4.39 (1.4-6.5) K/uL Lymph # (Auto) 0.35 L (1.2-3.4) K/uL Millard # (Auto) 0.22 (0.11-0.59) K/uL Eos # (Auto) 0.00 (0-0.5) K/uL Baso # (Auto) 0.00 (0-0.2) K/uL Immature Gran # (Auto) 0.01 (0.00-0.02) K/uL PT (9.0-12.0) Seconds INR (0.9-1.1) APTT (21.0-31.0) Seconds PTT Ratio D-Dimer (0-500) ug/L FEU Sodium 135 L (136-145) mmol/L Potassium 3.9 (3.5-5.1) mmol/L Chloride 106 (98-107) mmol/L Carbon Dioxide 21 (21-32) mmol/L Anion Gap 8.0 (3-11) BUN 27 H (7-18) mg/dl Creatinine 1.29 (0.6-1.4) mg/dl Est Cr Clr Drug Dosing 52.7 ml/min Est GFR ( Amer) 61.1 Est GFR (Non-Af Amer) 52.8 BUN/Creatinine Ratio 21.1 H (10-20) Glucose 149 H (70-99) mg/dl Lactate (0.4-2.0) mmol/L Calcium 7.9 L (8.5-10.1) mg/dl Magnesium 2.1 (1.8-2.4) mg/dl Total Bilirubin 0.7 (0.2-1) mg/dl AST 43 H (15-37) U/L ALT 20 (12-78) U/L Alkaline Phosphatase 56 (45-117) U/L Troponin I 0.035 0.082 H* (0-0.045) ng/ml Total Protein 6.4 (6.4-8.2) gm/dl Albumin 2.9 L (3.4-5.0) gm/dl Globulin 3.5 (2.5-4.0) gm/dl Albumin/Globulin Ratio 0.8 L (0.9-2) Procalcitonin (0-0.5) ng/ml Specimen Hemolysis Urine Color Urine Appearance (Clear) Urine pH (4.5-7.5) Ur Specific [place] (1.000-1.030) Urine Protein (Negative) Urine Glucose (UA) (Negative) Urine Ketones (Negative) Urine Blood (Negative) Urine Nitrite (Negative) Urine Bilirubin (Negative) Urine Urobilinogen (Negative) Ur Leukocyte Esterase (Negative) Urine WBC (Auto) (0-5) /hpf Urine RBC (Auto) (0-4) /hpf U Hyaline Cast (Auto) (0-5) /lpf U Epithel Cells (Auto) (0-5) /lpf Urine Bacteria (Auto) (Negative) Granular Casts (0) /lpf Urine Mucus (None Prsent) Urine Yeast Nasal Screen MRSA (PCR) (Negative) COVID-19 Eval Order Influ A Molecular Assay (Negative) Influ B Molecular Assay (Negative) SARS-CoV-2, RNA, NAAT (NEGATIVE) Blood Type Antibody Screen 01/21/20 01/21/20 01/21/20 Range/Units 21:07 19:48 19:40 WBC (4.8-10.8) K/uL RBC (4.7-6.1) M/uL Hgb (14.0-18.0) g/dL Hct (42-52) % MCV (80-100) fL MCH (25-34) pg MCHC (32-36) g/dL RDW Std Deviation (36.4-46.3) fL RDW Coeff of Gloria (11.5-14.5) % Plt Count (130-400) K/uL MPV (7.4-10.4) fL Immature Gran % (Auto) % Neut % (Auto) % Lymph % (Auto) % Millard % (Auto) % Eos % (Auto) % Baso % (Auto) % Neut # (Auto) (1.4-6.5) K/uL Lymph # (Auto) (1.2-3.4) K/uL Millard # (Auto) (0.11-0.59) K/uL Eos # (Auto) (0-0.5) K/uL Baso # (Auto) (0-0.2) K/uL Immature Gran # (Auto) (0.00-0.02) K/uL PT (9.0-12.0) Seconds INR (0.9-1.1) APTT (21.0-31.0) Seconds PTT Ratio D-Dimer 2800 H* (0-500) ug/L FEU Sodium (136-145) mmol/L Potassium (3.5-5.1) mmol/L Chloride (98-107) mmol/L Carbon Dioxide (21-32) mmol/L Anion Gap (3-11) BUN (7-18) mg/dl Creatinine (0.6-1.4) mg/dl Est Cr Clr Drug Dosing ml/min Est GFR ( Amer) Est GFR (Non-Af Amer) BUN/Creatinine Ratio (10-20) Glucose (70-99) mg/dl Lactate 2.0 (0.4-2.0) mmol/L Calcium (8.5-10.1) mg/dl Magnesium (1.8-2.4) mg/dl Total Bilirubin (0.2-1) mg/dl AST (15-37) U/L ALT (12-78) U/L Alkaline Phosphatase (45-117) U/L Troponin I (0-0.045) ng/ml Total Protein (6.4-8.2) gm/dl Albumin (3.4-5.0) gm/dl Globulin (2.5-4.0) gm/dl Albumin/Globulin Ratio (0.9-2) Procalcitonin (0-0.5) ng/ml Specimen Hemolysis Urine Color Urine Appearance (Clear) Urine pH (4.5-7.5) Ur Specific [place] (1.000-1.030) Urine Protein (Negative) Urine Glucose (UA) (Negative) Urine Ketones (Negative) Urine Blood (Negative) Urine Nitrite (Negative) Urine Bilirubin (Negative) Urine Urobilinogen (Negative) Ur Leukocyte Esterase (Negative) Urine WBC (Auto) (0-5) /hpf Urine RBC (Auto) (0-4) /hpf U Hyaline Cast (Auto) (0-5) /lpf U Epithel Cells (Auto) (0-5) /lpf Urine Bacteria (Auto) (Negative) Granular Casts (0) /lpf Urine Mucus (None Prsent) Urine Yeast Nasal Screen MRSA (PCR) (Negative) COVID-19 Eval Order Influ A Molecular Assay (Negative) Influ B Molecular Assay (Negative) SARS-CoV-2, RNA, NAAT (NEGATIVE) Blood Type A Positive Antibody Screen NEGATIVE 01/21/20 01/21/20 01/21/20 Range/Units 19:40 19:40 19:40 WBC (4.8-10.8) K/uL RBC (4.7-6.1) M/uL Hgb (14.0-18.0) g/dL Hct (42-52) % MCV (80-100) fL MCH (25-34) pg MCHC (32-36) g/dL RDW Std Deviation (36.4-46.3) fL RDW Coeff of Gloria (11.5-14.5) % Plt Count (130-400) K/uL MPV (7.4-10.4) fL Immature Gran % (Auto) % Neut % (Auto) % Lymph % (Auto) % Millard % (Auto) % Eos % (Auto) % Baso % (Auto) % Neut # (Auto) (1.4-6.5) K/uL Lymph # (Auto) (1.2-3.4) K/uL Millard # (Auto) (0.11-0.59) K/uL Eos # (Auto) (0-0.5) K/uL Baso # (Auto) (0-0.2) K/uL Immature Gran # (Auto) (0.00-0.02) K/uL PT (9.0-12.0) Seconds INR (0.9-1.1) APTT (21.0-31.0) Seconds PTT Ratio D-Dimer (0-500) ug/L FEU Sodium (136-145) mmol/L Potassium (3.5-5.1) mmol/L Chloride (98-107) mmol/L Carbon Dioxide (21-32) mmol/L Anion Gap (3-11) BUN (7-18) mg/dl Creatinine (0.6-1.4) mg/dl Est Cr Clr Drug Dosing ml/min Est GFR ( Amer) Est GFR (Non-Af Amer) BUN/Creatinine Ratio (10-20) Glucose (70-99) mg/dl Lactate (0.4-2.0) mmol/L Calcium (8.5-10.1) mg/dl Magnesium (1.8-2.4) mg/dl Total Bilirubin (0.2-1) mg/dl AST (15-37) U/L ALT (12-78) U/L Alkaline Phosphatase (45-117) U/L Troponin I (0-0.045) ng/ml Total Protein (6.4-8.2) gm/dl Albumin (3.4-5.0) gm/dl Globulin (2.5-4.0) gm/dl Albumin/Globulin Ratio (0.9-2) Procalcitonin (0-0.5) ng/ml Specimen Hemolysis Urine Color Urine Appearance (Clear) Urine pH (4.5-7.5) Ur Specific [place] (1.000-1.030) Urine Protein (Negative) Urine Glucose (UA) (Negative) Urine Ketones (Negative) Urine Blood (Negative) Urine Nitrite (Negative) Urine Bilirubin (Negative) Urine Urobilinogen (Negative) Ur Leukocyte Esterase (Negative) Urine WBC (Auto) (0-5) /hpf Urine RBC (Auto) (0-4) /hpf U Hyaline Cast (Auto) (0-5) /lpf U Epithel Cells (Auto) (0-5) /lpf Urine Bacteria (Auto) (Negative) Granular Casts (0) /lpf Urine Mucus (None Prsent) Urine Yeast Nasal Screen MRSA (PCR) (Negative) COVID-19 Eval [facility] A Molecular Assay Negative (Negative) Influ B Molecular Assay Negative (Negative) SARS-CoV-2, RNA, NAAT POSITIVE A* (NEGATIVE) Blood Type Antibody Screen 12/04/20 12/04/20 12/04/20 Range/Units 19:40 19:40 19:40 WBC (4.8-10.8) K/uL RBC (4.7-6.1) M/uL Hgb (14.0-18.0) g/dL Hct (42-52) % MCV (80-100) fL MCH (25-34) pg MCHC (32-36) g/dL RDW Std Deviation (36.4-46.3) fL RDW Coeff of Gloria (11.5-14.5) % Plt Count (130-400) K/uL MPV (7.4-10.4) fL Immature Gran % (Auto) % Neut % (Auto) % Lymph % (Auto) % Millard % (Auto) % Eos % (Auto) % Baso % (Auto) % Neut # (Auto) (1.4-6.5) K/uL Lymph # (Auto) (1.2-3.4) K/uL Millard # (Auto) (0.11-0.59) K/uL Eos # (Auto) (0-0.5) K/uL Baso # (Auto) (0-0.2) K/uL Immature Gran # (Auto) (0.00-0.02) K/uL PT 13.5 H (9.0-12.0) Seconds INR 1.3 H (0.9-1.1) APTT 30.8 (21.0-31.0) Seconds PTT Ratio 1.1 D-Dimer (0-500) ug/L FEU Sodium 132 L (136-145) mmol/L Potassium 3.9 (3.5-5.1) mmol/L Chloride 100 (98-107) mmol/L Carbon Dioxide 24 (21-32) mmol/L Anion Gap 8.0 (3-11) BUN 27 H (7-18) mg/dl Creatinine 1.49 H (0.6-1.4) mg/dl Est Cr Clr Drug Dosing 46.4 ml/min Est GFR ( Amer) 51.4 Est GFR (Non-Af Amer) 44.3 BUN/Creatinine Ratio 17.9 (10-20) Glucose 155 H (70-99) mg/dl Lactate (0.4-2.0) mmol/L Calcium 8.3 L (8.5-10.1) mg/dl Magnesium 1.9 (1.8-2.4) mg/dl Total Bilirubin 1.1 H (0.2-1) mg/dl AST 47 H (15-37) U/L ALT 23 (12-78) U/L Alkaline Phosphatase 68 (45-117) U/L Troponin I 0.081 H* (0-0.045) ng/ml Total Protein 7.3 (6.4-8.2) gm/dl Albumin 3.5 (3.4-5.0) gm/dl Globulin 3.8 (2.5-4.0) gm/dl Albumin/Globulin Ratio 0.9 (0.9-2) Procalcitonin 0.31 (0-0.5) ng/ml Specimen Hemolysis Urine Color Urine Appearance (Clear) Urine pH (4.5-7.5) Ur Specific [place] (1.000-1.030) Urine Protein (Negative) Urine Glucose (UA) (Negative) Urine Ketones (Negative) Urine Blood (Negative) Urine Nitrite (Negative) Urine Bilirubin (Negative) Urine Urobilinogen (Negative) Ur Leukocyte Esterase (Negative) Urine WBC (Auto) (0-5) /hpf Urine RBC (Auto) (0-4) /hpf U Hyaline Cast (Auto) (0-5) /lpf U Epithel Cells (Auto) (0-5) /lpf Urine Bacteria (Auto) (Negative) Granular Casts (0) /lpf Urine Mucus (None Prsent) Urine Yeast Nasal Screen MRSA (PCR) (Negative) COVID-19 Eval Order Influ A Molecular Assay (Negative) Influ B Molecular Assay (Negative) SARS-CoV-2, RNA, NAAT (NEGATIVE) Blood Type Antibody Screen 01/21/20 Range/Units 19:40 WBC 6.46 (4.8-10.8) K/uL RBC 4.29 L (4.7-6.1) M/uL Hgb 13.1 L (14.0-18.0) g/dL Hct 38.1 L (42-52) % MCV 88.8 (80-100) fL MCH 30.5 (25-34) pg MCHC 34.4 (32-36) g/dL RDW Std Deviation 46.1 (36.4-46.3) fL RDW Coeff of Gloria 14.1 (11.5-14.5) % Plt Count 133 (130-400) K/uL MPV 11.4 H (7.4-10.4) fL Immature Gran % (Auto) 0.3 % Neut % (Auto) 88.9 % Lymph % (Auto) 6.3 % Millard % (Auto) 4.5 % Eos % (Auto) 0.0 % Baso % (Auto) 0.0 % Neut # (Auto) 5.74 (1.4-6.5) K/uL Lymph # (Auto) 0.41 L (1.2-3.4) K/uL Millard # (Auto) 0.29 (0.11-0.59) K/uL Eos # (Auto) 0.00 (0-0.5) K/uL Baso # (Auto) 0.00 (0-0.2) K/uL Immature Gran # (Auto) 0.02 (0.00-0.02) K/uL PT (9.0-12.0) Seconds INR (0.9-1.1) APTT (21.0-31.0) Seconds PTT Ratio D-Dimer (0-500) ug/L FEU Sodium (136-145) mmol/L Potassium (3.5-5.1) mmol/L Chloride (98-107) mmol/L Carbon Dioxide (21-32) mmol/L Anion Gap (3-11) BUN (7-18) mg/dl Creatinine (0.6-1.4) mg/dl Est Cr Clr Drug Dosing ml/min Est GFR ( Amer) Est GFR (Non-Af Amer) BUN/Creatinine Ratio (10-20) Glucose (70-99) mg/dl Lactate (0.4-2.0) mmol/L Calcium (8.5-10.1) mg/dl Magnesium (1.8-2.4) mg/dl Total Bilirubin (0.2-1) mg/dl AST (15-37) U/L ALT (12-78) U/L Alkaline Phosphatase (45-117) U/L Troponin I (0-0.045) ng/ml Total Protein (6.4-8.2) gm/dl Albumin (3.4-5.0) gm/dl Globulin (2.5-4.0) gm/dl Albumin/Globulin Ratio (0.9-2) Procalcitonin (0-0.5) ng/ml Specimen Hemolysis Urine Color Urine Appearance (Clear) Urine pH (4.5-7.5) Ur Specific [place] (1.000-1.030) Urine Protein (Negative) Urine Glucose (UA) (Negative) Urine Ketones (Negative) Urine Blood (Negative) Urine Nitrite (Negative) Urine Bilirubin (Negative) Urine Urobilinogen (Negative) Ur Leukocyte Esterase (Negative) Urine WBC (Auto) (0-5) /hpf Urine RBC (Auto) (0-4) /hpf U Hyaline Cast (Auto) (0-5) /lpf U Epithel Cells (Auto) (0-5) /lpf Urine Bacteria (Auto) (Negative) Granular Casts (0) /lpf Urine Mucus (None Prsent) Urine Yeast Nasal Screen MRSA (PCR) (Negative) COVID-19 Eval Order Influ A Molecular Assay (Negative) Influ B Molecular Assay (Negative) SARS-CoV-2, RNA, NAAT (NEGATIVE) Blood Type Antibody Screen PG Care Time/CCT Total # of Minutes Spent Total Time Spent with Patient: Total time spent is greater than 50% in coordination of care (as documented) at patient's floor/unit and/or counseling patient: Coding Level of Care Code 21603 Subseq Hosp Care Lvl 3 Diagnoses Pneumonia due to COVID-19 virus U07.1; J12.89 Hypoxia R09.02 Elevated troponin R77.8 Atrial fibrillation with rapid ventricular response I48.91 HTN (hypertension) I10 Mitral regurgitation I34.0 Tricuspid regurgitation I07.1 Aortic valve disorder I35.9 Atrial fibrillation, permanent I48.21 Renal insufficiency N28.9 Elevated d-dimer R79.89 DVT prophylaxis Z29.9
[2020-01-22] MEDS: cefTRIAXone SODIUM 2,000 MG in DEXTROSE 5% 50 ML IV SCH (19:52)
[2020-01-22] MEDS: REMDESIVIR 100 MG in SODIUM CHLORIDE 0.9% 230 ML IV SCH (21:33)
[2020-01-22] MEDS: SODIUM CHLORIDE 0.9% 10ML FLUSH IV SCH (23:20)
[2020-01-23] MEDS: METOPROLOL TARTRATE 1 MG/ML VIAL IV PRN ×2 (00:52→04:32)
[2020-01-23] MEDS: ACETAMINOPHEN 325 MG TAB PO PRN ×2 (04:16→19:24)
[2020-01-23] MEDS: ALBUTEROL HFA 8 GM INHALER INH SCH ×4 (07:11→18:37)
[2020-01-23 07:27] LABS: Hematocrit (blood only) 37.4 % (42-52); Hemoglobin 13.1 g/dL (14.0-18.0); Immature Granulocytes # (auto) 0.03 K/uL (0.00-0.02); Immature Granulocytes % (auto) 0.3 %; Lymphocytes # (auto) 0.35 K/uL (1.2-3.4); Lymphocytes % (auto) 3.6 %; Mean Corpuscular Hemoglobin 30.8 pg (25-34); Mean Platelet Volume 12.9 fL (7.4-10.4); Monocytes # (auto) 0.36 K/uL (0.11-0.59); Monocytes % (auto) 3.7 %; Neutrophils # (auto) 9.07 K/uL (1.4-6.5); Neutrophils % (auto) 92.4 %; Platelet Count 163 K/uL (130-400); RDW Coefficient of Variation 14.5 % (11.5-14.5); RDW Standard Deviation 46.7 fL (36.4-46.3); Red Blood Count 4.25 M/uL (4.7-6.1); White Blood Count 9.81 K/uL (4.8-10.8)
[2020-01-23] MEDS: ASPIRIN 81 MG CHEW PO SCH (08:01)
[2020-01-23] MEDS: AZITHROMYCIN 500 MG in DEXTROSE 5% 250 ML IV SCH (08:01)
[2020-01-23] MEDS: dexAMETHasone 6 MG in SYRINGE 0 ML IV SCH (08:01)
[2020-01-23] MEDS: METOPROLOL TARTRATE 50 MG TAB PO SCH ×2 (08:01→19:24)
[2020-01-23 08:05] LABS: Albumin Level 2.9 gm/dl (3.4-5.0); BUN Creatinine Ratio 26.2 (10-20); Calcium 7.9 mg/dl (8.5-10.1); Creatinine Clr Calc Pharmacy 51.9 ml/min; Est GFR (Non-African American) 51.8; Magnesium 1.9 mg/dl (1.8-2.4); Potassium 4.3 mmol/L (3.5-5.1)
[2020-01-23 08:08] LABS: Albumin Globulin Ratio 0.8 (0.9-2); Bilirubin,Total 0.8 mg/dl (0.2-1); Globulin 3.5 gm/dl (2.5-4.0); Total Protein 6.4 gm/dl (6.4-8.2)
--- NOTE | 2020-01-23 10:35 | Electrocardiogram Report ---
Test Reason : Blood Pressure : / mmHG Vent. Rate : 128 BPM Atrial Rate : 468 BPM P-R Int : 000 ms QRS Dur : 086 ms QT Int : 328 ms P-R-T Axes : 000 061 150 degrees QTc Int : 478 ms Atrial fibrillation with rapid ventricular response Abnormal ECG When compared with ECG of 22-MAR-2014 12:09, ST more depressed Lateral leads T wave inversion now evident in Anterior leads Confirmed by Ibrahima Ríos ([id number]) on 01/23/2020 10:35:10 AM Referred By: [facility] Confirmed By:Ibrahima Ríos
--- NOTE | 2020-01-23 11:42 | Electrocardiogram Report ---
Test Reason : Blood Pressure : / mmHG Vent. Rate : 096 BPM Atrial Rate : 093 BPM P-R Int : 000 ms QRS Dur : 084 ms QT Int : 344 ms P-R-T Axes : 000 021 093 degrees QTc Int : 434 ms Atrial fibrillation Nonspecific ST and T wave abnormality Abnormal ECG When compared with ECG of 21-JAN-2020 19:42, (unconfirmed) Nonspecific T wave abnormality has replaced inverted T waves in Lateral leads Confirmed by Ibrahima Ríos ([id number]) on 01/23/2020 11:42:31 AM Referred By: [facility] Confirmed By:Ibrahima Ríos
[2020-01-23] MEDS: ENOXAPARIN 100 MG/1ML SYR SC SCH ×2 (12:12→23:21)
--- NOTE | 2020-01-23 12:28 | Cardiology Progress Note ---
Date of Service January 23, 2020 Assessment & Plan (1) Atrial fibrillation with rapid ventricular response: -rate now adequately controlled on metoprolol tartrate. -patient was started on Eliquis by Mr. Zuniga in June 2019. (2) Elevated troponin: -likely secondary to demand ischemia realizing rapid atrial fibrillation and moderate LVH. -could also be secondary to his COVID infection. -no need for ischemic workup at this time. (3) Aortic valve disorder: -mild aortic stenosis and insufficiency noted on echocardiogram February 2019. -repeat study after COVID infection resolved. (4) Pneumonia due to COVID-19 virus: Admission and Anticipated Discharge Date Admission Date: January 21, 2020 Subjective Chart and telemetry review as patient in COVID unit. Physical Exam Physical Exam: Exam per Dr. Avelar. Results & Data ([facility]) Vital Signs (Past 12 Hours) Vital Signs Temp Pulse Pulse Resp BP BP Pulse Ox 01/23/20 11:59 36.6 C 75 27 H 129/63 97 01/23/20 11:13 71 24 98 01/23/20 07:47 37.0 C 94 H 26 H 123/82 99 01/23/20 07:12 94 H 26 H 98 01/23/20 06:18 95 H 24 121/78 98 01/23/20 05:05 38.7 C H 113 H 28 H 131/84 96 01/23/20 04:32 162 H 01/23/20 04:00 38.9 C H 169 H 32 H 161/118 H 91 01/23/20 00:52 137 H 144/98 H Diagnostic Findings conveyor monitor notes rate controlled atrial fibrillation. PG Care Time/CCT Total # of Minutes Spent Total Time Spent with Patient: Total time spent is greater than 50% in coordination of care (as documented) at patient's floor/unit and/or counseling patient: Coding Level of Care Code 83978 Subseq Hosp Care Lvl 3 Diagnoses Atrial fibrillation with rapid ventricular response I48.91 Elevated troponin R77.8 Aortic valve disorder I35.9 Pneumonia due to COVID-19 virus U07.1; J12.89
[2020-01-23] MEDS: ATORVASTATIN 20 MG TAB PO SCH (19:24)
[2020-01-23] MEDS: cefTRIAXone SODIUM 2,000 MG in DEXTROSE 5% 50 ML IV SCH (20:17)
[2020-01-23] MEDS: REMDESIVIR 100 MG in SODIUM CHLORIDE 0.9% 230 ML IV SCH (20:17)
--- NOTE | 2020-01-23 21:09 | Hospitalist Progress Note ---
Date of Service January 23, 2020 Assessment & Plan (1) Pneumonia due to COVID-19 virus: With sepsis, POA, and pneumonia due to COVID-19 virus with hypoxia-stable on 3 L With fever, tachycardia, tachypnea, hypoxia, chest x-ray with pneumonia Fevers continue on 01/22 Continue Decadron 6 mg IV every morning x10-day course-last dose will be 02/01 Convalescent plasma, consent obtained and transfused on 01/21 Continue remdesivir IV x5-day course-last dose will be 01/24 Procalcitonin negative, however continues to spike high fevers-therefore we will continue antibiotic coverage for superimposed bacterial pneumonia Continue ceftriaxone 2 g IV daily Continue azithromycin 500 mg IV daily Continue Ventolin HFA 2 puffs 4 times daily, and every 2 hours as needed Continue nasal cannula oxygen, titrate to keep pulse ox 94 to 95% (2) Hypoxia: See above (3) Elevated troponin: Elevated troponin-troponin 0 0.081/0.082/0.035 Most likely secondary to myocardial demand ischemia in the setting of sepsis and acute illness He denies any chest pain ECG with rapid atrial fibrillation, ST and T wave changes in lateral leads and anterior leads Appreciate cardiology consultation-no need for ischemic work-up at this time (4) Atrial fibrillation with rapid ventricular response: Rates in the 120s on admission with sepsis and as high as the 180s on 01/22 when he had a fever Heart rates improved with resolution of fever Continue metoprolol tartrate 50 mg p.o. twice daily -continue aspirin 81 mg daily -He is not on an anticoagulation as an outpatient because he did not like having to get PT/INRs drawn when on Coumadin as per his report -He was recommended to start apixaban by cardiology PA at his visit in 06/2019, however as per my previous experience, apixaban is nonformulary at the [facility] -Continue therapeutic Lovenox while admitted (5) HTN (hypertension): Blood pressures now acceptable Continue metoprolol with hold parameters (6) Mitral regurgitation: Echocardiogram from 02/2019 with normal LVEF, no wall motion abnormalities, severely enlarged left atrium, mild mitral insufficiency, mild TR, at least mild aortic stenosis (7) Tricuspid regurgitation: Moderate on echo (8) Aortic valve disorder: Mild stenosis Cardiology recommends repeating echocardiogram after Covid infection resolved (9) Atrial fibrillation, permanent: As above (10) Renal insufficiency: Creatinine 1.49 upon admission, with unknown baseline. NSS at 60 mils per hour was given and creatinine now improved and stable at 1.3 With mild hyponatremia now improved with hydration Follow BMP IV fluids have been discontinued (11) Elevated d-dimer: D-dimer 2800. Likely secondary to Covid-19 and pneumonia No chest pain, do not suspect significant PE -Regardless, he has been placed on therapeutic Lovenox 1 mg/kg subcu every 12 hours for atrial fibrillation (12) DVT prophylaxis: Therapeutic Lovenox Disposition-continued stay on telemetry Admission and Anticipated Discharge Date Admission Date: January 21, 2020 Subjective Patient feels well today. Denies chest pain or shortness of breath. Had some fevers overnight with rapid atrial fibrillation with rates into the 180s which is now improved now that fever has defervesced. He had 2 loose bowel movements today but feels that it is getting more formed. No blood in the stool. He states he has a history of a gastric ulcer in the past, had pain with that, but never any GI bleeding. He reports the reason he is no longer on Coumadin is because he was tired of having his PT/INR checked all the time. Unfortunately, Nicolás is nonformulary at the [facility] and he is not on that as recommended by cardiology PA 7 months ago. Telemetry with atrial fibrillation as noted above with rates as high as 180, but when I saw him today he was in the 90s. Review of Systems Review of Systems: All systems reviewed & are unremarkable except as noted in HPI & below Physical Exam Constitutional: WD/WN, vitals as above Eyes: + anicteric sclerae Neck: trachea midline, no thyromegaly Respiratory: normal respiratory effort Auscultation: + crackles (At the bases); no wheezes Cardiovascular: Rate/Rhythm: regular rate and + irregularly irregular Heart Sounds: + murmur (2/6 systolic at the RUSB) Chest (Breasts): Chest: normal inspection of chest Gastrointestinal (Abdomen): normal bowel sounds, soft, nontender, no hepatosplenomegaly Musculoskeletal: Extremities: extremities normal to inspection; no cyanosis and no clubbing Skin: no rashes, warm and dry Neurologic: moves all extremities and awake; no focal motor deficits Psychiatric: A+Ox3, euthymic affect Orientation: cooperative Lymphatic: no lymphedema Results & Data Results & Data ([facility]) Vital Signs (Past 12 Hours) Vital Signs Temp Pulse Resp BP Pulse Ox 01/23/20 19:13 36.7 C 83 22 123/83 93 01/23/20 18:38 88 20 94 01/23/20 15:30 87 20 96 01/23/20 15:12 36.5 C 97 H 20 132/84 96 01/23/20 11:59 36.6 C 75 27 H 129/63 97 01/23/20 11:13 71 24 98 Laboratory Results 01/23/20 01/23/20 Range/Units 06:18 06:18 WBC 9.81 (4.8-10.8) K/uL RBC 4.25 L (4.7-6.1) M/uL Hgb 13.1 L (14.0-18.0) g/dL Hct 37.4 L (42-52) % MCV 88.0 (80-100) fL MCH 30.8 (25-34) pg MCHC 35.0 (32-36) g/dL RDW Std Deviation 46.7 H (36.4-46.3) fL RDW Coeff of Gloria 14.5 (11.5-14.5) % Plt Count 163 (130-400) K/uL MPV 12.9 H (7.4-10.4) fL Immature Gran % (Auto) 0.3 % Neut % (Auto) 92.4 % Lymph % (Auto) 3.6 % [place] % (Auto) 3.7 % Eos % (Auto) 0.0 % Baso % (Auto) 0.0 % Neut # (Auto) 9.07 H (1.4-6.5) K/uL Lymph # (Auto) 0.35 L (1.2-3.4) K/uL [place] # (Auto) 0.36 (0.11-0.59) K/uL Eos # (Auto) 0.00 (0-0.5) K/uL Baso # (Auto) 0.00 (0-0.2) K/uL Immature Gran # (Auto) 0.03 H (0.00-0.02) K/uL Sodium 136 (136-145) mmol/L Potassium 4.3 (3.5-5.1) mmol/L Chloride 106 (98-107) mmol/L Carbon Dioxide 19 L (21-32) mmol/L Anion Gap 11.0 (3-11) BUN 34 H (7-18) mg/dl Creatinine 1.31 (0.6-1.4) mg/dl Est Cr Clr Drug Dosing 51.9 ml/min Est GFR ( Amer) 60.0 Est GFR (Non-Af Amer) 51.8 BUN/Creatinine Ratio 26.2 H (10-20) Glucose 95 (70-99) mg/dl Calcium 7.9 L (8.5-10.1) mg/dl Magnesium 1.9 (1.8-2.4) mg/dl Total Bilirubin 0.8 (0.2-1) mg/dl AST 45 H (15-37) U/L ALT 21 (12-78) U/L Alkaline Phosphatase 55 (45-117) U/L Total Protein 6.4 (6.4-8.2) gm/dl Albumin 2.9 L (3.4-5.0) gm/dl Globulin 3.5 (2.5-4.0) gm/dl Albumin/Globulin Ratio 0.8 L (0.9-2) Urine culture no growth Blood cultures-no growth to date PG Care Time/CCT Total # of Minutes Spent Total Time Spent with Patient: Total time spent is greater than 50% in coordination of care (as documented) at patient's floor/unit and/or counseling patient: Coding Level of Care Code 50799 Subseq Hosp Care Lvl 3 Diagnoses Pneumonia due to COVID-19 virus U07.1; J12.89 Hypoxia R09.02 Elevated troponin R77.8 Atrial fibrillation with rapid ventricular response I48.91 HTN (hypertension) I10 Mitral regurgitation I34.0 Tricuspid regurgitation I07.1 Aortic valve disorder I35.9 Atrial fibrillation, permanent I48.21 Renal insufficiency N28.9 Elevated d-dimer R79.89 DVT prophylaxis Z29.9
[2020-01-23] MEDS: SODIUM CHLORIDE 0.9% 10ML FLUSH IV SCH (21:34)
[2020-01-24 06:38] LABS: Basophils # (auto) 0.01 K/uL (0-0.2); Basophils % (auto) 0.1 %; Hematocrit (blood only) 38.8 % (42-52); Hemoglobin 13.4 g/dL (14.0-18.0); Immature Granulocytes # (auto) 0.02 K/uL (0.00-0.02); Immature Granulocytes % (auto) 0.2 %; Lymphocytes % (auto) 7.1 %; Mean Corpuscular Hemoglobin 30.5 pg (25-34); Mean Corpuscular Hgb Conc 34.5 g/dL (32-36); Mean Corpuscular Volume 88.4 fL (80-100); Mean Platelet Volume 12.5 fL (7.4-10.4); Monocytes % (auto) 3.5 %; Neutrophils # (auto) 7.55 K/uL (1.4-6.5); Neutrophils % (auto) 89.1 %; Platelet Count 175 K/uL (130-400); RDW Coefficient of Variation 14.7 % (11.5-14.5); RDW Standard Deviation 47.7 fL (36.4-46.3); Red Blood Count 4.39 M/uL (4.7-6.1); White Blood Count 8.48 K/uL (4.8-10.8)
[2020-01-24 07:16] LABS: Albumin Level 2.9 gm/dl (3.4-5.0); BUN Creatinine Ratio 30.2 (10-20); Calcium 7.9 mg/dl (8.5-10.1); Creatinine Clr Calc Pharmacy 55.1 ml/min; Est GFR (African American) 64.1; Est GFR (Non-African American) 55.3; Magnesium 2.5 mg/dl (1.8-2.4); Potassium 4.3 mmol/L (3.5-5.1)
[2020-01-24 07:19] LABS: Albumin Globulin Ratio 0.7 (0.9-2); Bilirubin,Total 0.6 mg/dl (0.2-1); Total Protein 6.9 gm/dl (6.4-8.2)
[2020-01-24] MEDS: ALBUTEROL HFA 8 GM INHALER INH SCH (08:13)
[2020-01-24] MEDS: ASPIRIN 81 MG CHEW PO SCH (08:45)
[2020-01-24] MEDS: METOPROLOL TARTRATE 50 MG TAB PO SCH ×2 (08:46→21:27)
[2020-01-24] MEDS: dexAMETHasone 6 MG in SYRINGE 0 ML IV SCH (08:46)
[2020-01-24] MEDS: AZITHROMYCIN 500 MG in DEXTROSE 5% 250 ML IV SCH (08:51)
[2020-01-24] MEDS ORDERED: ALBUTEROL HFA 8 GM INHALER INH PRN (08:57)
--- NOTE | 2020-01-24 11:03 | Cardiology Progress Note ---
Date of Service January 24, 2020 Assessment & Plan (1) Atrial fibrillation with rapid ventricular response: -rate adequately controlled on metoprolol tartrate 50 mg b.i.d. -patient was started on Eliquis by Mr. Zuniga in June 2019, however, non formulary at the [facility]. -currently on therapeutic Lovenox. (2) Elevated troponin: -likely secondary to demand ischemia realizing rapid atrial fibrillation in the face of moderate LVH. -may also be secondary to his COVID infection. -no need for ischemic workup at this time. (3) Aortic valve disorder: -mild aortic stenosis and insufficiency noted on echocardiogram February 2019. -repeat study after COVID resolved. (4) Pneumonia due to COVID-19 virus: -management per Dr. Gallagher. Admission and Anticipated Discharge Date Admission Date: January 21, 2020 Subjective Subjective report per Dr. Gallagher as patient in COVID isolation. Physical Exam Physical Exam: Exam per Dr. Gallagher. Results & Data ([facility]) Vital Signs (Past 12 Hours) Vital Signs Temp Pulse Resp BP Pulse Ox 01/24/20 08:15 70 20 98 01/24/20 08:00 36.2 C L 73 22 122/68 92 01/24/20 03:31 60 20 123/75 01/23/20 23:57 36.5 C 62 18 122/80 97 Diagnostic Findings equipment monitor phototypesetting notes rate control atrial fibrillation with a ventricular response of 70-90 bpm. PG Care Time/CCT Total # of Minutes Spent Total Time Spent with Patient: Total time spent is greater than 50% in coordination of care (as documented) at patient's floor/unit and/or counseling patient: Coding Level of Care Code 00061 Subseq Hosp Care Lvl 3 Diagnoses Atrial fibrillation with rapid ventricular response I48.91 Elevated troponin R77.8 Aortic valve disorder I35.9 Pneumonia due to COVID-19 virus U07.1; J12.89
--- NOTE | 2020-01-24 11:49 | Hospitalist Progress Note ---
Date of Service January 24, 2020 Assessment & Plan (1) Pneumonia due to COVID-19 virus: With sepsis, POA, and pneumonia due to COVID-19 virus with hypoxia-stable on 3 L With fever, tachycardia, tachypnea, hypoxia, chest x-ray with pneumonia had a fever in morning on 01/22, no afebrile for over 24 hours Continue Decadron 6 mg IV every morning x10-day course-last dose will be 02/01 will change to PO on discharge tomorrow Convalescent plasma, consent obtained and transfused on 01/21 Continue remdesivir IV x5-day course-last dose will be 01/24, will complete tomorrow Procalcitonin negative, however had a fever Continue ceftriaxone 2 g IV daily Continue azithromycin 500 mg IV daily, convert to PO if needed on discharge Continue Ventolin HFA 2 puffs 4 times daily, and every 2 hours as needed Continue nasal cannula oxygen, titrate to keep pulse ox 94 to 95% down to room air this morning, 94-95% if he remains off oxygen, plan for discharge tomorrow afternoon to [facility] after completing the 5 days of Remdesivir (2) Hypoxia: See above (3) Elevated troponin: Elevated troponin-troponin 0 0.081/0.082/0.035 Most likely secondary to myocardial demand ischemia in the setting of sepsis and acute illness He denies any chest pain ECG with rapid atrial fibrillation, ST and T wave changes in lateral leads and anterior leads Appreciate cardiology consultation-no need for ischemic work-up at this time (4) Atrial fibrillation with rapid ventricular response: Rates in the 120s on admission with sepsis and as high as the 180s on 01/22 when he had a fever Heart rates improved with resolution of fever Continue metoprolol tartrate 50 mg p.o. twice daily -continue aspirin 81 mg daily -He is not on an anticoagulation as an outpatient because he did not like having to get PT/INRs drawn when on Coumadin as per his report -He was recommended to start apixaban by cardiology PA at his visit in 06/2019, however as per my previous experience, apixaban is nonformulary at the nursing home -Continue therapeutic Lovenox while admitted but likely no anticoagulation on discharge (5) HTN (hypertension): Blood pressures now acceptable Continue metoprolol with hold parameters (6) Mitral regurgitation: Echocardiogram from 02/2019 with normal LVEF, no wall motion abnormalities, severely enlarged left atrium, mild mitral insufficiency, mild TR, at least mild aortic stenosis (7) Tricuspid regurgitation: Moderate on echo (8) Aortic valve disorder: Mild stenosis Cardiology recommends repeating echocardiogram after Covid infection resolved (9) Atrial fibrillation, permanent: As above (10) Renal insufficiency: Creatinine 1.49 upon admission, with unknown baseline. NSS at 60 mils per hour was given and creatinine now improved and stable at 1.24 With mild hyponatremia now improved with hydration., 136 today Follow BMP tomorrow IV fluids have been discontinued (11) Elevated d-dimer: D-dimer 2800. Likely secondary to Covid-19 and pneumonia No chest pain, do not suspect significant PE -Regardless, he has been placed on therapeutic Lovenox 1 mg/kg subcu every 12 h ours for atrial fibrillation (12) DVT prophylaxis: Therapeutic Lovenox Disposition: plan to discharge tomorrow after Remdesivir completed Admission and Anticipated Discharge Date Admission Date: January 21, 2020 Subjective patient feeling well today, says he does not feel like he is breathing heavier than normal no fever since yesterday morning appetite is good, had a BM this morning, making urine just titrated off of oxygen this morning, will want to make sure he is not hypoxic for 24 hours discussed going back to [facility] tomorrow, he agrees with plan Review of Systems Review of Systems: All systems reviewed & are unremarkable except as noted in Subjective Constitutional: no fever, no chills, no sweats, no fatigue and no weakness Respiratory: + dyspnea on exertion; no cough and no dyspnea Cardiovascular: no chest pain Gastrointestinal: no abdominal pain, no nausea, no vomiting, no constipation and no diarrhea/loose stools Physical Exam Constitutional: WD/WN, vitals as above Neck: trachea midline, no thyromegaly Respiratory: normal respiratory effort, lungs clear to auscultation Cardiovascular: Rate/Rhythm: regular rate and + irregularly irregular Heart Sounds: normal S1 and normal S2; no murmur Vessels: no JVD Extremities: normal capillary refill; no edema Gastrointestinal (Abdomen): normal bowel sounds, soft, nontender, no hepatosplenomegaly Musculoskeletal: no cyanosis or clubbing, extremities motor strength 5/5 Skin: no rashes, warm and dry Neurologic: patellar DTR's 2+ bilat, sensation intact and PERRL, EOMI, accommodation nl, no face palsy, no dysarthria Psychiatric: A+Ox3, euthymic affect Lymphatic: no cervical or axillary lymphadenopathy Results & Data Results & Data ([facility]) Vital Signs (Past 12 Hours) Vital Signs Temp Pulse Resp BP Pulse Ox 01/24/20 08:15 70 20 98 01/24/20 08:00 36.2 C L 73 22 122/68 92 01/24/20 03:31 60 20 123/75 01/23/20 23:57 36.5 C 62 18 122/80 97 Laboratory Results Laboratory Results - last 24 hr 01/24/20 01/24/20 05:39 05:39 WBC 8.48 RBC 4.39 L Hgb 13.4 L Hct 38.8 L MCV 88.4 MCH 30.5 MCHC 34.5 RDW Std Deviation 47.7 H RDW Coeff of Gloria 14.7 H Plt Count 175 MPV 12.5 H Immature Gran % (Auto) 0.2 Neut % (Auto) 89.1 Lymph % (Auto) 7.1 [place] % (Auto) 3.5 Eos % (Auto) 0.0 Baso % (Auto) 0.1 Neut # (Auto) 7.55 H Lymph # (Auto) 0.60 L [place] # (Auto) 0.30 Eos # (Auto) 0.00 Baso # (Auto) 0.01 Immature Gran # (Auto) 0.02 Sodium 136 Potassium 4.3 Chloride 107 Carbon Dioxide 25 Anion Gap 4.0 BUN 37 H Creatinine 1.24 Est Cr Clr Drug Dosing 55.1 Est GFR ( Amer) 64.1 Est GFR (Non-Af Amer) 55.3 BUN/Creatinine Ratio 30.2 H Glucose 112 H Calcium 7.9 L Magnesium 2.5 H Total Bilirubin 0.6 AST 43 H ALT 27 Alkaline Phosphatase 55 Total Protein 6.9 Albumin 2.9 L Globulin 4.0 Albumin/Globulin Ratio 0.7 L Medications Administered Current Inpatient Medications Acetaminophen (Acetaminophen 325 Mg Tab) 650 mg PO Q4H PRN PRN Reason: Pain or Fever Stop: 02/21/20 00:00 Last Admin: 01/23/20 19:24 Dose: 650 mg Documented by: Albuterol (Albuterol Hfa 8 Gm Inhaler) 2 puffs INH Q4 PRN PRN Reason: Shortness Of Breath Or Wheezing Stop: 02/23/20 11:59 Aspirin (Aspirin 81 Mg Chew) 81 mg PO DAILY@0800 [facility] Stop: 02/21/20 07:59 Last Admin: 01/24/20 08:45 Dose: 81 mg Documented by: Atorvastatin Calcium (Atorvastatin 20 Mg Tab) 20 mg PO 1999 [facility] Stop: 02/21/20 19:59 Last Admin: 01/23/20 19:24 Dose: 20 mg Documented by: Enoxaparin Sodium (Enoxaparin 100 Mg/1ml Syr) 90 mg SC Q12H [facility] Stop: 02/21/20 00:00 Last Admin: 01/23/20 23:21 Dose: 90 mg Documented by: Dexamethasone 6 mg/ Syringe 1.5 mls @ 1 mls/min IV DAILY@0800 [facility] Stop: 02/21/20 07:59 Last Admin: 01/24/20 08:46 Dose: 1 mls/min Documented by: Remdesivir 100 mg/ Sodium (Chloride) 250 mls @ 250 mls/hr IV Q24H [facility]; Protocol Stop: 01/25/20 20:59 Last Infusion: 01/23/20 21:34 Dose: Infused Documented by: Azithromycin 500 mg/ Dextrose 255 mls @ 125 mls/hr IV DAILY@08 [facility]; Protocol Stop: 01/29/20 07:59 Last Admin: 01/24/20 08:51 Dose: 125 mls/hr Documented by: Ceftriaxone Sodium 2,000 mg/ (Dextrose) 70 mls @ 140 mls/hr IV DAILY@1999 [facility] Stop: 01/28/20 22:59 Last Infusion: 01/23/20 21:34 Dose: Infused Documented by: Metoprolol Tartrate (Metoprolol Tartrate 50 Mg Tab) 50 mg PO [facility] Stop: 02/20/20 22:44 Last Admin: 01/24/20 08:46 Dose: 50 mg Documented by: Metoprolol Tartrate (Metoprolol Tartrate 1 Mg/Ml Vial) 5 mg IV Q4 PRN PRN Reason: Tachycardia Stop: 02/21/20 03:59 Last Admin: 01/23/20 04:32 Dose: 5 mg Documented by: Nitroglycerin (Nitroglycerin Sl 0.4 Mg/Tab Tab) 0.4 mg SL UD PRN PRN Reason: Chest Pain Stop: 02/20/20 22:44 Ondansetron HCl (Ondansetron Inj 2 Mg/Ml 2 Ml Vial) 4 mg IV Q6H PRN PRN Reason: Nausea Stop: 02/20/20 22:44 Sodium Chloride (Sodium Chloride 0.9% 10ml Flush) 30 ml IV Q24H [facility] Stop: 01/26/20 20:01 Last Admin: 01/23/20 21:34 Dose: 30 ml Documented by: PG Care Time/CCT Total # of Minutes Spent Total Time Spent with Patient: Total time spent is greater than 50% in coordination of care (as documented) at patient's floor/unit and/or counseling patient: Coding Level of Care Code 71625 Subseq Hosp Care Lvl 3 Diagnoses Pneumonia due to COVID-19 virus U07.1; J12.89 Hypoxia R09.02 Elevated troponin R77.8 Atrial fibrillation with rapid ventricular response I48.91 HTN (hypertension) I10 Mitral regurgitation I34.0 Tricuspid regurgitation I07.1 Aortic valve disorder I35.9 Atrial fibrillation, permanent I48.21 Renal insufficiency N28.9 Elevated d-dimer R79.89 DVT prophylaxis Z29.9
[2020-01-24] MEDS: ENOXAPARIN 100 MG/1ML SYR SC SCH ×2 (13:51→23:35)
[2020-01-24] MEDS: REMDESIVIR 100 MG in SODIUM CHLORIDE 0.9% 230 ML IV SCH (20:53)
[2020-01-24] MEDS: ATORVASTATIN 20 MG TAB PO SCH (21:27)
[2020-01-24] MEDS: cefTRIAXone SODIUM 2,000 MG in DEXTROSE 5% 50 ML IV SCH (21:27)
[2020-01-24] MEDS: SODIUM CHLORIDE 0.9% 10ML FLUSH IV SCH (22:49)
[2020-01-25 06:48] LABS: BUN Creatinine Ratio 30.4 (10-20); Calcium 7.8 mg/dl (8.5-10.1); Creatinine Clr Calc Pharmacy 54.4 ml/min; Est GFR (African American) 62.9; Est GFR (Non-African American) 54.3; Potassium 3.7 mmol/L (3.5-5.1)
[2020-01-25] MEDS: METOPROLOL TARTRATE 50 MG TAB PO SCH (09:14)
[2020-01-25] MEDS: AZITHROMYCIN 500 MG in DEXTROSE 5% 250 ML IV SCH (09:14)
[2020-01-25] MEDS: ASPIRIN 81 MG CHEW PO SCH (09:14)
[2020-01-25] MEDS: dexAMETHasone 6 MG in SYRINGE 0 ML IV SCH (09:15)
[2020-01-25] MEDS: ENOXAPARIN 100 MG/1ML SYR SC SCH (13:55)
--- NOTE | 2020-01-25 14:40 | Discharge Summary ---
Date of Service January 25, 2020 Admission HPI Per Admitting Provider The patient is a 79-year-old male resident of [facility] with a past medical history including mitral regurgitation, tricuspid regurgitation, LVH, hypertension, aortic stenosis and permanent atrial fibrillation. He presents with symptoms as noted above. Work-up in the emergency department included the following significant laboratories: Hemoglobin 13.1, INR 1.3, sodium 132, creatinine 1.49, troponin 0 0.081, AST 47. D-dimer was 2800, GFR was 44.3. COVID-19 was positive. Maximum temperature was 101.8. Chest x-ray showed bilateral infiltrates, right greater than left, with diagnoses inclusive of viral pneumonia. There was also cardiomegaly. Principal Diagnosis COVID 19 pneumonia Discharge Exam Constitutional WD/WN, vitals as above Neck trachea midline, no thyromegaly Respiratory normal respiratory effort, lungs clear to auscultation Cardiovascular Rate/Rhythm: regular rate and + irregularly irregular Heart Sounds: normal S1 and normal S2; no murmur Vessels: no JVD Extremities: normal capillary refill; no edema Gastrointestinal (Abdomen) normal bowel sounds, soft, nontender, no hepatosplenomegaly Musculoskeletal no cyanosis or clubbing, extremities motor strength 5/5 Skin no rashes, warm and dry Neurologic patellar DTR's 2+ bilat, sensation intact and PERRL, EOMI, accommodation nl, no face palsy, no dysarthria Psychiatric A+Ox3, euthymic affect Lymphatic no cervical or axillary lymphadenopathy Discharge Data Allergies Allergy/AdvReac Type Severity Reaction Status Date / Time No Known Allergies Allergy Verified 01/21/20 20:42 Consultations 01/21/20 20:34 ED Decision to Admit Stat 01/21/20 22:45 Consult Cardiology Routine Consult Case Management - Discharge Planning Routine Hospital Course (1) Pneumonia due to COVID-19 virus: With fever, tachycardia, tachypnea, hypoxia, chest x-ray with pneumonia had a fever in morning on 01/22, afebrile for over 48 hours Continue Decadron 6 mg IV every morning x10-day course will change to PO on discharge, needs 5 more days of 6mg PO daily Convalescent plasma, consent obtained and transfused on 01/21 completed remdesivir IV, 5 day course, last day was on 01/24 Procalcitonin negative, however had a fever treated with ceftriaxone 2 g IV daily and Zithromax 500mg IV daily while here change to Zithromax 250mg PO daily for three more days after discharge down to room air for over 24 hours, no distress, eating and drinking well return to [facility] today (2) Hypoxia: resolved with supportive care and Dexamethasone no distress at all (3) Elevated troponin: Elevated troponin-troponin 0 0.081/0.082/0.035 Most likely secondary to myocardial demand ischemia in the setting of sepsis and acute illness He denies any chest pain (4) Atrial fibrillation with rapid ventricular response: Rates in the 120s on admission with sepsis and as high as the 180s on 01/22 when he had a fever Heart rates improved with resolution of fever, rates have been 60-70 for 48 hours Continue metoprolol tartrate 50 mg p.o. twice daily -continue aspirin 81 mg daily -He is not on an anticoagulation as an outpatient because he did not like having to get PT/INRs drawn when on Coumadin as per his report -He was recommended to start apixaban by cardiology PA at his visit in 06/2019 but non-formulary at [facility] defer any further talks about Coumadin to [facility] provider (5) HTN (hypertension): Blood pressures now acceptable Continue metoprolol with hold parameters (6) Mitral regurgitation: Echocardiogram from 02/2019 with normal LVEF, no wall motion abnormalities, severely enlarged left atrium, mild mitral insufficiency, mild TR, at least mild aortic stenosis (7) Tricuspid regurgitation: Moderate on echo (8) Aortic valve disorder: Mild stenosis Cardiology recommends repeating echocardiogram after Covid infection resolved (9) Atrial fibrillation, permanent: As above (10) Renal insufficiency: Creatinine 1.49 upon admission, with unknown baseline. NSS at 60 mils per hour was given and creatinine now improved and stable With mild hyponatremia now improved with hydration., 136 yesterday (11) Elevated d-dimer: D-dimer 2800. Likely secondary to Covid-19 and pneumonia (12) DVT prophylaxis: Therapeutic Lovenox Disposition: plan to discharge today to [facility] Total Time Total Time Spent Total Time Spent (In Minutes): 33 minutes Total Time Includes: Examination of the Patient, Discharge Planning, Medication Reconciliation and Communication With Other Providers (spoke with provider at [facility] over the phone) Discharge Plan Discharge Items [facility] Disposition[facility] Reason For Visit: PNEUMONIA DUE TO COVID-19 VIRUS WITH HYPOXIA Discharge Diagnosis: Pneumonia due to COVID 19 Condition on Discharge: Good Goals: stay well nourished, well hydrated complete course of Decadron and Zithromax Activity: Resume your previous activity Weightbearing: Full weightbearing Non-emergency contact: Primary Care Provider Call non-emergency contact if: you have any medication questions, your symptoms worsen and you have a fever Follow-up/Referrals: Wang ELIZONDO [Primary Care Provider] - Diet: Regular Addtl Attending Provider Instructions: Medications: DEXAMETHASONE: take 6mg daily for 5 more days to treat COVID pneumonia ZITHROMAX: take 250mg daily for 3 more days to cover for bacterial infection COVID 19 pneumonia with acute hypoxia off of oxygen for over 24 hours, breathing well, no distress completed course of Remdesivir IV will need 5 more days of dexamethasone and 3 more days of Zithromax continue to stay well hydrated and well nourished, increase activity as tolerated Pending Studies at Discharge: No Stand-Alone Forms: My [facility] Skilled Items Patient informed of condition?: Yes Discharge Level of Care: Other Communicable Disease: Yes Discharge Prognosis: Stable Lines: None Urinary Catheter: No Medications and DC Order Prescriptions: New dexamethasone 2 mg tablet 6 mg PO DAILY 5 Days Qty: 15 RF: 0 azithromycin [Zithromax] 250 mg tablet 250 mg PO DAILY 3 Days Qty: 3 RF: 0 Continued atorvastatin 20 mg tablet 20 mg PO HS RF: 0 metoprolol tartrate 50 mg tablet 50 mg PO BID RF: 0 aspirin 81 mg Tablet,Chewable 81 mg PO DAILY RF: 0 Discharge Orders: Discharge Order (Routine); Ordered 01/25/20 Ordered By: Niko Gallagher Admission Data Admit Date/Time: 01/21/20 21:29 Attending Provider: Niko Gallagher Admit Provider: Yusuf Kwan Primary Care Provider: Wang ELIZONDO Other Providers: Yusuf Kwan ; Layo Ley Coding Level of Care Code D/C Day Management >30 mins Diagnoses Pneumonia due to COVID-19 virus U07.1; J12.89 Hypoxia R09.02 Elevated troponin R77.8 Atrial fibrillation with rapid ventricular response I48.91 HTN (hypertension) I10 Mitral regurgitation I34.0 Tricuspid regurgitation I07.1 Aortic valve disorder I35.9 Atrial fibrillation, permanent I48.21 Renal insufficiency N28.9 Elevated d-dimer R79.89 DVT prophylaxis Z29.9
[2020-01-25] MEDS: REMDESIVIR 100 MG in SODIUM CHLORIDE 0.9% 230 ML IV SCH (14:56)
== END 2020-01-25 18:00 | DRG 871 ==
LOC: ED 19:17 → SUATTDRO 21:29 → 2E 21:29

== ENCOUNTER 2022-06-16 11:34 | Inpatient (IN) ==
--- NOTE | 2022-06-16 12:06 | Emergency Department Note ---
Impression & Plan Acute CVA (cerebrovascular accident), Atrial fibrillation, Left-sided neglect, Anemia ED Provider Note NAME: MARISA Calderon [id number] MAHKOVEC AGE: 82 SEX: M : 1940 ARRIVES VIA: Ambulance INFORMANT: [Patient][ems] ED PROVIDER(S): [John Ahumada MD] Patient first seen by me at 1155. CHIEF COMPLAINT: Illness HISTORY OF PRESENT ILLNESS: The patient is an 82-year-old male who was last seen well at around 7 AM, 5 hours ago. The patient has a history of A-fib and takes aspirin, no other anticoagulation. Short time before arrival, he was found has in half out of his bed. He appeared confused and seemed weak. BSG was 156. Temperature was recorded by our nursing staff at 35.7 F. The patient is a very poor historian. He seems quite confused. He does deny pain or shortness of breath. Given the circumstances and mental state, no further history obtainable. PMHx/PSHx: See Below SOCIAL HISTORY: See Below. PHYSICAL EXAM: GENERAL: Patient is in no acute distress. HEENT: No acute trauma, normocephalic atraumatic, mucous membranes moist, no nasal congestion. NECK: No stridor, no adenopathy, no meningismus, trachea is midline. LUNGS: Clear to auscultation bilaterally, no wheeze, no rhonchi, breath sounds equal. HEART: Irregular rhythm, no obvious murmurs, slightly tachycardic. ABDOMEN: Soft, nontender, bowel sounds positive, no peritonitis. EXTREMITIES: No cyanosis or edema, full range of motion of all the joints without pain or difficulty, no signs for acute trauma. NEUROLOGIC: Confused. Seems to neglect his left side. Left arm and left leg seem significantly weak. Left facial droop is noted. Unable to accurately follow commands, especially when trying to evaluate the left side. SKIN: No rash, no jaundice, no diaphoresis. Pale. DIFFERENTIAL DIAGNOSIS: Stroke, intracranial bleeding, infection or bacteremia, cardiac ischemia, anemia, electrolyte imbalance, renal or liver failure, among others. EMERGENCY DEPARTMENT COURSE/PROCEDURES: Prior/Outside records reviewed: Documentation, last discharge summary. ECG per my interpretation: Indication was probable stroke. The ECG shows atrial fibrillation with a rate of 97. There is significant baseline artifact and T wave inversion in the inferior and lateral leads. There is no ST elevation, no PVCs. The QTc is 439. Compared to an ECG from 23 January 2020, the T wave changes appear more pronounced. Continuous Cardiac Monitoring per my interpretation: An order was placed for continuous cardiac monitoring. The monitor shows a rate of 109 with atrial fibrillation. Critical Care Note: I have personally spent 52 minutes of critical care time in the direct management of this patient. This includes bedside care, interpretation of diagnostic studies, and testing, discussion with consultants, patient, and family members, and other required patient management activities. This 52 minutes is in excess of all separately billable procedures. MEDICAL DECISION MAKING: There is no leukocytosis. A mild anemia was seen with a hemoglobin of 12.2. The anemia is baseline for the patient. There is a normal platelet count. INR is slightly high at 1.2. There is no renal failure or significant electrolyte abnormality. No concerning liver enzyme elevation. ECG showed atrial fibrillation, no obvious ischemia. Cardiac enzyme testing x1 is not consistent with acute cardiac injury. Lactic acid level is not elevated making severe sepsis less likely. Urinalysis did not show findings of infection. COVID test returned negative. Chest x-ray per my review showed some chronic change, there was no pneumothorax or pneumonia. Brain CT showed changes of potential acute CVA. CT angiography of the head and neck were performed, there was an acute stroke at the M2 distribution on the right. On exam, the patient appeared to neglect his left side. There was left-sided weakness and a left facial droop. There was some confusion. Given the presentation, the patient was aggressively managed. A stroke alert was called. I did speak with the stroke neurologist, Dr. Weir. Dr. Weir did see the patient via the telestroke monitor. The patient is not a candidate for TNK, he is out of the TNK window. Initially, it was thought he may be a candidate for clot retrieval. Arrangements were being made for transfer to [facility]. Once the interventionalist from [place] was given the patient's information and findings, he did not feel that intervention was going to be of benefit given the clot location. There was the additional issue of transport as the weather would not prevent helicopter transfer. I spoke with the guards, I spoke with the patient, I spoke with case management. As the patient is not a candidate for TNK, as the patient is not a candidate for clot retrieval, he will be hospitalized at our facility. The patient was given IV saline, IV magnesium, rectal aspirin. He was maintained in the supine position to hopefully improve cerebral perfusion. I did speak with the on-call hospitalist. Admission is warranted. DISPOSITION: Patient's presentation and findings warrant a hospital stay. Past Med/Surg History Medical History Aortic valve disorder Atrial fibrillation Atrial fibrillation and flutter Atrial fibrillation with rapid ventricular response Elevated d-dimer Elevated troponin Hypertension Hypoxia Mitral regurgitation Other nonrheumatic aortic valve disorders PAD (peripheral artery disease) Renal insufficiency Tricuspid regurgitation Social History Smoking Status: Former smoker Tobacco Type: Cigarettes Second Hand Exposure: No; Do You Dip or Chew Tobacco: No; Hx Alcohol Use: No Hx Substance Use: No Preferred Language: Danish Communication Ability: Impaired Classroom Aide Required: No Beliefs That Will Affect Care: None Current Living Situation: Other Current Living Situation Comment: [facility] Feels Safe at Home: Yes Assistive Devices: None Allergies Allergies Allergy/AdvReac Type Severity Reaction Status Date / Time No Known Allergies Allergy Verified 01/21/20 20:42 Home Meds Home Medications Medication Instructions Recorded Confirmed atorvastatin 20 mg tablet 20 mg PO HS 07/14/19 06/16/22 metoprolol tartrate 50 mg tablet 50 mg PO BID 07/15/19 06/16/22 aspirin 81 mg chewable tablet 81 mg PO DAILY 01/21/20 06/16/22 hydrochlorothiazide 12.5 mg capsule 12.5 mg PO DAILY 06/16/22 06/16/22 ibuprofen 600 mg tablet 600 mg PO TID PRN Pain 06/16/22 06/16/22 Results & Data (ED) Vital Signs Vital Signs - 24 hr 06/16/22 11:52 06/16/22 11:52 06/16/22 12:25 Temperature 35.7 C L Temperature Source Oral Pulse Rate 109 H Pulse Rate [Apical] 89 Pulse Rate from SpO2 Sensor Respiratory Rate 24 18 Blood Pressure 116/78 Blood Pressure [Left Arm] 129/74 Blood Pressure Mean 90 Blood Pressure Mean [Left Arm] 92 Pulse Oximetry 92 94 Oxygen Delivery Method Room Air Room Air Room Air Sepsis New/Unexplained Change in Mental Status Yes Sepsis Action Taken by Nursing Physician Notified 06/16/22 12:17 06/16/22 12:34 06/16/22 12:00 Temperature Temperature Source Pulse Rate 86 Pulse Rate [Apical] 97 H Pulse Rate from SpO2 Sensor Respiratory Rate 18 Blood Pressure 119/81 Blood Pressure [Left Arm] 127/81 Blood Pressure Mean 93 Blood Pressure Mean [Left Arm] 96 Pulse Oximetry Oxygen Delivery Method Sepsis New/Unexplained Change in Mental Status Sepsis Action Taken by Nursing 06/16/22 12:00 06/16/22 12:45 06/16/22 12:45 Temperature Temperature Source Pulse Rate 108 H 114 H Pulse Rate [Apical] Pulse Rate from SpO2 Sensor Respiratory Rate 29 H 24 Blood Pressure 126/95 Blood Pressure [Left Arm] Blood Pressure Mean 105 Blood Pressure Mean [Left Arm] Pulse Oximetry 94 Oxygen Delivery Method Sepsis New/Unexplained Change in Mental Status Sepsis Action Taken by Nursing 06/16/22 13:00 06/16/22 13:00 06/16/22 13:15 Temperature Temperature Source Pulse Rate 95 H Pulse Rate [Apical] Pulse Rate from SpO2 Sensor Respiratory Rate 22 Blood Pressure 134/71 126/63 Blood Pressure [Left Arm] Blood Pressure Mean 92 84 Blood Pressure Mean [Left Arm] Pulse Oximetry Oxygen Delivery Method Sepsis New/Unexplained Change in Mental Status Sepsis Action Taken by Nursing 06/16/22 13:15 06/16/22 13:30 06/16/22 13:31 Temperature Temperature Source Pulse Rate 88 93 H Pulse Rate [Apical] Pulse Rate from SpO2 Sensor 89 101 H Respiratory Rate 21 25 H Blood Pressure 110/64 Blood Pressure [Left Arm] Blood Pressure Mean 79 Blood Pressure Mean [Left Arm] Pulse Oximetry 94 95 Oxygen Delivery Method Room Air Room Air Sepsis New/Unexplained Change in Mental Status Sepsis Action Taken by Nursing 06/16/22 13:31 06/16/22 13:45 06/16/22 13:45 Temperature Temperature Source Pulse Rate 108 H 88 Pulse Rate [Apical] Pulse Rate from SpO2 Sensor 104 H 90 Respiratory Rate 19 21 Blood Pressure 139/67 Blood Pressure [Left Arm] Blood Pressure Mean 91 Blood Pressure Mean [Left Arm] Pulse Oximetry 94 94 Oxygen Delivery Method Room Air Room Air Sepsis New/Unexplained Change in Mental Status Sepsis Action Taken by Nursing 06/16/22 14:00 06/16/22 14:00 06/16/22 14:15 Temperature Temperature Source Pulse Rate 86 95 H Pulse Rate [Apical] Pulse Rate from SpO2 Sensor 79 134 H Respiratory Rate 22 20 Blood Pressure 130/88 Blood Pressure [Left Arm] Blood Pressure Mean 102 Blood Pressure Mean [Left Arm] Pulse Oximetry 95 93 Oxygen Delivery Method Room Air Sepsis New/Unexplained Change in Mental Status Sepsis Action Taken by Nursing 06/16/22 14:16 06/16/22 14:16 06/16/22 14:30 Temperature Temperature Source Pulse Rate 96 H Pulse Rate [Apical] Pulse Rate from SpO2 Sensor 94 H Respiratory Rate 20 Blood Pressure 114/72 147/102 H Blood Pressure [Left Arm] Blood Pressure Mean 86 117 Blood Pressure Mean [Left Arm] Pulse Oximetry 94 Oxygen Delivery Method Room Air Sepsis New/Unexplained Change in Mental Status Sepsis Action Taken by Nursing 06/16/22 14:30 Temperature Temperature Source Pulse Rate 104 H Pulse Rate [Apical] Pulse Rate from SpO2 Sensor 92 H Respiratory Rate 24 Blood Pressure Blood Pressure [Left Arm] Blood Pressure Mean Blood Pressure Mean [Left Arm] Pulse Oximetry 95 Oxygen Delivery Method Room Air Sepsis New/Unexplained Change in Mental Status Sepsis Action Taken by [facility] Medications Current Medication List: was personally reviewed by me Laboratory Data Attestation: I reviewed the patient's lab results. 06/16/22 11:48 06/16/22 11:48 Lab Results 06/16/22 06/16/22 06/16/22 Range/Units 11:48 11:48 11:48 WBC 6.32 (4.8-10.8) K/ul RBC 3.88 L (4.70-6.10) M/uL Hgb 12.2 L (14.0-18.0) g/dl POC Hgb (14.0-18.0) g/dl Hct 36.2 L (42.0-52.0) % POC Hct (42-52) % MCV 93.3 (80.0-100.0) fL MCH 31.4 (25.0-34.0) pg MCHC 33.7 (32.0-36.0) g/dL RDW Std Deviation 48.4 H (36.4-46.3) fL RDW Coeff of Gloria 14.4 (11.5-14.5) % Plt Count 165 (130-400) K/uL MPV 11.8 (9.4-12.4) fL Immature Gran % (Auto) 0.2 % Neut % (Auto) 65.9 % Lymph % (Auto) 21.8 % Piute % (Auto) 10.9 % Eos % (Auto) 0.6 % Baso % (Auto) 0.6 % Neut # (Auto) 4.16 (1.40-6.50) K/uL Lymph # (Auto) 1.38 (1.2-3.4) K/uL Piute # (Auto) 0.69 H (0.11-0.59) K/uL Eos # (Auto) 0.04 (0-0.50) K/uL Baso # (Auto) 0.04 (0-0.2) K/uL Immature Gran # (Auto) 0.01 (0.01-0.20) K/uL PT 13.0 H (9.0-12.0) Seconds INR 1.2 H (0.9-1.1) APTT 28.0 (21.0-31.0) Seconds PTT Ratio 1.0 POC Sodium (135-144) mmol/L Sodium 139 (136-145) mmol/L POC Potassium (3.3-5.0) mmol/L Potassium 4.1 (3.5-5.1) mmol/L POC Chloride (101-112) mmol/L Chloride 104 (98-107) mmol/L Carbon Dioxide 26 (21-32) mmol/L POC Total CO2 (24-31) mmol/L Anion Gap 9 (3-11) POC Anion Gap (16-25) mmol/L POC BUN (7-18) mg/dl BUN 29 H (6-23) mg/dl Creatinine 1.34 (0.6-1.4) mg/dl POC Creatinine (0.6-1.3) mg/dl Est Cr Clr Drug Dosing 48.8 ml/min Est GFR ( Amer) 57.2 ml/min Est GFR (Non-Af Amer) 49.3 ml/min BUN/Creatinine Ratio 21.6 H (10-20) Glucose 143 H (70-99(Fasting)) mg/dl POC Glucose (other) (70-99) mg/dl Lactate (0.4-2.0) mmol/L Calcium 9.1 (8.6-10.3) mg/dl POC Ioniz Calcium Mari (1.12-1.32) mmol/l Magnesium 2.0 (1.7-2.4) mg/dl Total Bilirubin 1.1 H (0.2-1.0) mg/dl AST 21 (13-39) U/L ALT 11 (7-52) U/L Alkaline Phosphatase 80 (34-104) U/L Troponin I High Sens 17.1 (0-20) pg/ml Total Protein 6.8 (6.0-8.3) gm/dl Albumin 4.0 (3.4-5.0) gm/dl Globulin 2.8 (2.5-4.0) gm/dl Albumin/Globulin Ratio 1.4 (0.9-2) SARS-CoV-2, RNA, NAAT (NEGATIVE) Blood Type Antibody Screen 06/16/22 06/16/22 06/16/22 Range/Units 12:06 12:07 12:29 WBC (4.8-10.8) K/ul RBC (4.70-6.10) M/uL Hgb (14.0-18.0) g/dl POC Hgb 12.2 L (14.0-18.0) g/dl Hct (42.0-52.0) % POC Hct 36 L (42-52) % MCV (80.0-100.0) fL MCH (25.0-34.0) pg MCHC (32.0-36.0) g/dL RDW Std Deviation (36.4-46.3) fL RDW Coeff of Gloria (11.5-14.5) % Plt Count (130-400) K/uL MPV (9.4-12.4) fL Immature Gran % (Auto) % Neut % (Auto) % Lymph % (Auto) % Piute % (Auto) % Eos % (Auto) % Baso % (Auto) % Neut # (Auto) (1.40-6.50) K/uL Lymph # (Auto) (1.2-3.4) K/uL Piute # (Auto) (0.11-0.59) K/uL Eos # (Auto) (0-0.50) K/uL Baso # (Auto) (0-0.2) K/uL Immature Gran # (Auto) (0.01-0.20) K/uL PT (9.0-12.0) Seconds INR (0.9-1.1) APTT (21.0-31.0) Seconds PTT Ratio POC Sodium 139 (135-144) mmol/L Sodium (136-145) mmol/L POC Potassium 4.1 (3.3-5.0) mmol/L Potassium (3.5-5.1) mmol/L POC Chloride 102 (101-112) mmol/L Chloride (98-107) mmol/L Carbon Dioxide (21-32) mmol/L POC Total CO2 24 (24-31) mmol/L Anion Gap (3-11) POC Anion Gap 17.0 (16-25) mmol/L POC BUN 26 H (7-18) mg/dl BUN (6-23) mg/dl Creatinine (0.6-1.4) mg/dl POC Creatinine 1.4 H (0.6-1.3) mg/dl Est Cr Clr Drug Dosing ml/min Est GFR ( Amer) ml/min Est GFR (Non-Af Amer) ml/min BUN/Creatinine Ratio (10-20) Glucose (70-99(Fasting)) mg/dl POC Glucose (other) 146 H (70-99) mg/dl Lactate 1.6 (0.4-2.0) mmol/L Calcium (8.6-10.3) mg/dl POC Ioniz Calcium Mari 1.16 (1.12-1.32) mmol/l Magnesium (1.7-2.4) mg/dl Total Bilirubin (0.2-1.0) mg/dl AST (13-39) U/L ALT (7-52) U/L Alkaline Phosphatase (34-104) U/L Troponin I High Sens (0-20) pg/ml Total Protein (6.0-8.3) gm/dl Albumin (3.4-5.0) gm/dl Globulin (2.5-4.0) gm/dl Albumin/Globulin Ratio (0.9-2) SARS-CoV-2, RNA, NAAT (NEGATIVE) Blood Type A Positive Antibody Screen NEGATIVE 06/16/22 Range/Units 12:30 WBC (4.8-10.8) K/ul RBC (4.70-6.10) M/uL Hgb (14.0-18.0) g/dl POC Hgb (14.0-18.0) g/dl Hct (42.0-52.0) % POC Hct (42-52) % MCV (80.0-100.0) fL MCH (25.0-34.0) pg MCHC (32.0-36.0) g/dL RDW Std Deviation (36.4-46.3) fL RDW Coeff of Gloria (11.5-14.5) % Plt Count (130-400) K/uL MPV (9.4-12.4) fL Immature Gran % (Auto) % Neut % (Auto) % Lymph % (Auto) % Piute % (Auto) % Eos % (Auto) % Baso % (Auto) % Neut # (Auto) (1.40-6.50) K/uL Lymph # (Auto) (1.2-3.4) K/uL Piute # (Auto) (0.11-0.59) K/uL Eos # (Auto) (0-0.50) K/uL Baso # (Auto) (0-0.2) K/uL Immature Gran # (Auto) (0.01-0.20) K/uL PT (9.0-12.0) Seconds INR (0.9-1.1) APTT (21.0-31.0) Seconds PTT Ratio POC Sodium (135-144) mmol/L Sodium (136-145) mmol/L POC Potassium (3.3-5.0) mmol/L Potassium (3.5-5.1) mmol/L POC Chloride (101-112) mmol/L Chloride (98-107) mmol/L Carbon Dioxide (21-32) mmol/L POC Total CO2 (24-31) mmol/L Anion Gap (3-11) POC Anion Gap (16-25) mmol/L POC BUN (7-18) mg/dl BUN (6-23) mg/dl Creatinine (0.6-1.4) mg/dl POC Creatinine (0.6-1.3) mg/dl Est Cr Clr Drug Dosing ml/min Est GFR ( Amer) ml/min Est GFR (Non-Af Amer) ml/min BUN/Creatinine Ratio (10-20) Glucose (70-99(Fasting)) mg/dl POC Glucose (other) (70-99) mg/dl Lactate (0.4-2.0) mmol/L Calcium (8.6-10.3) mg/dl POC Ioniz Calcium Mari (1.12-1.32) mmol/l Magnesium (1.7-2.4) mg/dl Total Bilirubin (0.2-1.0) mg/dl AST (13-39) U/L ALT (7-52) U/L Alkaline Phosphatase (34-104) U/L Troponin I High Sens (0-20) pg/ml Total Protein (6.0-8.3) gm/dl Albumin (3.4-5.0) gm/dl Globulin (2.5-4.0) gm/dl Albumin/Globulin Ratio (0.9-2) SARS-CoV-2, RNA, NAAT NEGATIVE (NEGATIVE) Blood Type Antibody Screen Administered Medications Sodium Chloride (Nss 1000ml) 1,000 mls @ 100 mls/hr IV .Q10H ASAEL Stop: 07/16/22 12:59 Last Admin: 06/16/22 13:12 Dose: 100 mls/hr Documented By: REANNA Discontinued Medications Aspirin (Aspirin 300 Mg Supp) 300 mg MN ONE ONE Stop: 06/16/22 13:01 Last Admin: 06/16/22 13:21 Dose: 300 mg Documented By: REANNA Magnesium Sulfate/Dextrose (Magnesium Sulfate / D5w) 1 gm in 100 mls @ 100 mls/hr IV Q1H ASAEL Stop: 06/16/22 14:59 Last Infusion: 06/16/22 15:12 Dose: 0 mls/hr Documented By: Admin: 06/16/22 14:12 Dose: 100 mls/hr Documented By: Infusion: 06/16/22 14:11 Dose: 0 mls/hr Documented By: Admin: 06/16/22 13:11 Dose: 100 mls/hr Documented By: REANNA Ioversol (Optiray 320 500ml) 120 ml IV ONCE ONE Stop: 06/16/22 12:10 Last Admin: 06/16/22 12:10 Dose: 120 ml Documented By: CODY Imaging Data Radiologist's Impression: Chest X-Ray 06/16/22 12:02 XR chest 1V portable HISTORY: Left-sided weakness. neuro deficit, acute stroke suspected COMPARISON: Chest 01/21/2020. FINDINGS: The no pneumothorax. No pleural effusions. Cardiomegaly and mild interstitial pulmonary edema persists. No new focal lung consolidations. There are calcifications within the aortic knob. No acute fractures identified. IMPRESSION: Mild cardiomegaly and mild interstitial pulmonary edema. This is similar to the prior study. ACT 112: Negative or not required by law. Electronically signed by: Jamie Rosales M.D. 06/16/2022 1:[address] 06/16/22 12:[address] DOSE: HISTORY: neuro deficit, acute stroke suspected TECHNIQUE: Multiaxial CT images of the head were performed without the use of intravenous contrast. Automated exposure control was utilized for this study. A dose lowering technique was utilized adhering to the principles of ALARA. Comparison: None. Findings: The paranasal sinuses and mastoid air cells are clear. The calvarium and skull base are intact. There is no mass, hematoma,, midline shift. White matter hypodensity is nonspecific but suggestive of microvascular ischemic change. The ventricles and sulci demonstrate mild age-related involutional changes. Motion artifact results in suboptimal evaluation. Loss of the normal sexton-white junction within the right subinsular cortex/frontotemporal lobes consistent with an acute MCA territory infarct focal areas of encephalitis withi n the left frontal and parietal lobes consistent with old infarcts. There is an old lacunar infarct within the right cerebellar hemisphere. Impression: An acute right MCA territory infarct involving the right frontotemporal region. This is likely moderate in size. ACT 112: Negative or not required by law. Electronically signed by: Jamie Rosales M.D. 06/16/2022 12:26 PM Head CTA 06/16/22 12:02 HEAD & NECK CTA HISTORY: Left-sided weakness. neuro deficit, acute stroke suspected TECHNIQUE: Multiaxial CT images of the head were performed following the intravenous administration of contrast to evaluate the major cerebral vessels. Multiaxial CT images of the neck were also performed following the intravenous administration of contrast to evaluate the major cervical vessels. Maximum intensity projection images were also obtained. A dose lowering technique was utilized adhering to the principles of ALARA. COMPARISON: Head CT 06/16/2022. FINDINGS: There is a right MCA territory infarct. This is secondary to an abrupt vascular cut off involving the proximal inferior division of the M2 segment of the right MCA. This is best seen on axial image 125 of series 7. The left MCA is widely patent. The distal vertebral arteries are widely patent. There is focal na rrowing within the supraclinoid segments of the bilateral ICAs measuring 50% on the left and 75% on the right. Mild focal narrowing at the distal basilar artery. The bilateral ACAs are widely patent. The right A1 segment is absent which is likely developmental. There is focal severe narrowing within a short segment of the proximal left OTHER SALES SUPPORT WORKER best seen on image 105. This measures approximately 5 mm in length. The major dural venous sinuses are patent. No aneurysms identified. The aortic arch and proximal great vessels are widely patent. Moderate to severe focal narrowing at the takeoff of the left vertebral artery. Otherwise, the bilateral cervical vertebral arteries are widely patent. Mild calcified plaque within the bilateral carotid bifurcations. No significant stenosis, occlusion, or dissection within the bilateral cervical internal carotid arteries or common carotid arteries. Mild interlobular septal thickening within the lung apices suggestive of mild congestive change. There is mild mediastinal lymphadenopathy noted. IMPRESSION: 1. An acute right MCA territory infarct due to an abrupt vessel cut off within a proximal right M2 segment. 2. Additional areas of narrowing within the cerebral arteries as described above. 3. The common carotid and cervical internal carotid arteries are patent. 4. Moderate focal stenosis at the takeoff of the left vertebral artery. 5. Mild interstitial pulmonary edema. 6. Mild mediastinal lymphadenopathy. This could be due to the emphysema. [address] follow-up recommended to ensure stability/resolution. ACT 112: Negative or not required by law. Electronically signed by: Jamie Rosales M.D. 06/16/2022 12:33 PM Neck CTA 06/16/22 12:02 HEAD & NECK CTA HISTORY: Left-sided weakness. neuro deficit, acute stroke suspected TECHNIQUE: Multiaxial CT images of the head were performed following the intravenous administration of contrast to evaluate the major cerebral vessels. Multiaxial CT images of the neck were also performed following the intravenous administration of contrast to evaluate the major cervical vessels. Maximum intensity projection images were also obtained. A dose lowering technique was utilized adhering to the principles of ALARA. COMPARISON: Head CT 06/16/2022. FINDINGS: There is a right MCA territory infarct. This is secondary to an abrupt vascular cut off involving the proximal inferior division of the M2 segment of the right MCA. This is best seen on axial image 125 of series 7. The left MCA is widely patent. The distal vertebral arteries are widely patent. There is focal narrowing within the supraclinoid segments of the bilateral ICAs measuring 50% on the left and 75% on the right. Mild focal narrowing at the distal basilar artery. The bilateral ACAs are widely patent. The right A1 segment is absent which is likely developmental. There is focal severe narrowing within a short segment of the proximal left OTHER SALES SUPPORT WORKER best seen on image 105. This measures approximately 5 mm in length. The major dural venous sinuses are patent. No aneurysms identified. The aortic arch and proximal great vessels are widely patent. Moderate to severe focal narrowing at the takeoff of the left vertebral artery. Otherwise, the bilateral cervical vertebral arteries are widely patent. Mild calcified plaque within the bilateral carotid bifurcations. No significant stenosis, occlusion, or dissection within the bilateral cervical internal carotid arteries or common carotid arteries. Mild interlobular septal thickening within the lung apices suggestive of mild congestive change. There is mild mediastinal lymphadenopathy noted. IMPRESSION: 1. An acute right MCA territory infarct due to an abrupt vessel cut off within a proximal right M2 segment. 2. Additional areas of narrowing within the cerebral arteries as described above. 3. The common carotid and cervical internal carotid arteries are patent. 4. Moderate focal stenosis at the takeoff of the left vertebral artery. 5. Mild interstitial pulmonary edema. 6. Mild mediastinal lymphadenopathy. This could be due to the emphysema. [address] follow-up recommended to ensure stability/resolution. ACT 112: Negative or not required by law. Electronically signed by: Jamie Rosales M.D. 06/16/2022 12:33 PM Discharge Plan Visit Data Chief Complaint: Illness Stated Complaint: AMS ED Provider: John Ahumada Discharge Problem: Acute CVA (cerebrovascular accident), Atrial fibrillation, Left-sided neglect, Anemia Patient Disposition: Admitted As Inpatient Condition: Serious Discharge Instructions Interventions: ED Discharge Assessment Last Done: 06/16/22 15:53
[2022-06-16] MEDS ORDERED: OPTIRAY 320 500ml IV ONE (12:09)
[2022-06-16 12:20] LABS: iSTAT Creatinine 1.4 mg/dl (0.6-1.3); iSTAT Hemoglobin 12.2 g/dl (14.0-18.0); iSTAT Ionized Calcium 1.16 mmol/l (1.12-1.32); iSTAT Potassium 4.1 mmol/L (3.3-5.0)
[2022-06-16 12:21] LABS: Basophils # (auto) 0.04 K/uL (0-0.2); Basophils % (auto) 0.6 %; Eosinophils # (auto) 0.04 K/uL (0-0.50); Eosinophils % (auto) 0.6 %; Hematocrit (blood only) 36.2 % (42.0-52.0); Hemoglobin 12.2 g/dl (14.0-18.0); Immature Granulocytes # (auto) 0.01 K/uL (0.01-0.20); Immature Granulocytes % (auto) 0.2 %; Lymphocytes # (auto) 1.38 K/uL (1.2-3.4); Lymphocytes % (auto) 21.8 %; Mean Corpuscular Hemoglobin 31.4 pg (25.0-34.0); Mean Corpuscular Hgb Conc 33.7 g/dL (32.0-36.0); Mean Corpuscular Volume 93.3 fL (80.0-100.0); Mean Platelet Volume 11.8 fL (9.4-12.4); Monocytes # (auto) 0.69 K/uL (0.11-0.59); Monocytes % (auto) 10.9 %; Neutrophils # (auto) 4.16 K/uL (1.40-6.50); Neutrophils % (auto) 65.9 %; Platelet Count 165 K/uL (130-400); RDW Coefficient of Variation 14.4 % (11.5-14.5); RDW Standard Deviation 48.4 fL (36.4-46.3); Red Blood Count 3.88 M/uL (4.70-6.10); White Blood Count 6.32 K/ul (4.8-10.8)
[2022-06-16 12:27] LABS: Albumin Globulin Ratio 1.4 (0.9-2); BUN Creatinine Ratio 21.6 (10-20); Bilirubin,Total 1.1 mg/dl (0.2-1.0); Calcium 9.1 mg/dl (8.6-10.3); Creatinine Clr Calc Pharmacy 48.8 ml/min; Est GFR (African American) 57.2 ml/min; Est GFR (Non-African American) 49.3 ml/min; Globulin 2.8 gm/dl (2.5-4.0); Potassium 4.1 mmol/L (3.5-5.1); Total Protein 6.8 gm/dl (6.0-8.3)
--- NOTE | 2022-06-16 12:28 | CT Scan Report ---
HEAD CT NONCONTRAST CT DOSE: HISTORY: neuro deficit, acute stroke suspected TECHNIQUE: Multiaxial CT images of the head were performed without the use of intravenous contrast. A utomated exposure control was utilized for this study. A dose lowering technique was utilized adheri ng to the principles of ALARA. Comparison: None. Findings: The paranasal sinuses and mastoid air cells are clear. The calvarium and skull base are int act. There is no mass, hematoma,, midline shift. White matter hypodensity is nonspecific but suggesti ve of microvascular ischemic change. The ventricles and sulci demonstrate mild age-related involution al changes. Motion artifact results in suboptimal evaluation. Loss of the normal sexton-white junction within the right subinsular cortex/frontotemporal lobes consistent with an acute MCA territory infarc t focal areas of encephalitis within the left frontal and parietal lobes consistent with old infarcts . There is an old lacunar infarct within the right cerebellar hemisphere. Impression: An acute right MCA territory infarct involving the right frontotemporal region. This is likely modera te in size. ACT 112: Negative or not required by law. Electronically signed by: Jamie Rosales M.D. 06/16/2022 12:26 PM
[2022-06-16 12:33] LABS: Troponin I High Sensitivity 17.1 pg/ml (0-20)
--- NOTE | 2022-06-16 12:34 | CT Scan Report ---
HEAD & NECK CTA HISTORY: Left-sided weakness. neuro deficit, acute stroke suspected TECHNIQUE: Multiaxial CT images of the head were performed following the intravenous administration o f contrast to evaluate the major cerebral vessels. Multiaxial CT images of the neck were also perform ed following the intravenous administration of contrast to evaluate the major cervical vessels. Maxim um intensity projection images were also obtained. A dose lowering technique was utilized adhering to the principles of ALARA. COMPARISON: Head CT 06/16/2022. FINDINGS: There is a right MCA territory infarct. This is secondary to an abrupt vascular cut off involving the proximal inferior division of the M2 segment of the right MCA. This is best seen on axial image 125 of series 7. The left MCA is widely patent. The distal vertebral arteries are widely patent. There is focal narrowing within the supraclinoid segments of the bilateral ICAs measuring 50% on the left and 75% on the right. Mild focal narrowing at the distal basilar artery. The bilateral ACAs are widely p atent. The right A1 segment is absent which is likely developmental. There is focal severe narrowing within a short segment of the proximal left CHARGE COORDINATOR best seen on image 105. This measures approximately 5 mm in length. The major dural venous sinuses are patent. No aneurysms identified. The aortic arch and proximal great vessels are widely patent. Moderate to severe focal narrowing at the takeoff of the left vertebral artery. Otherwise, the bilateral cervical vertebral arteries are w idely patent. Mild calcified plaque within the bilateral carotid bifurcations. No significant stenosi s, occlusion, or dissection within the bilateral cervical internal carotid arteries or common carotid arteries. Mild interlobular septal thickening within the lung apices suggestive of mild congestive c hange. There is mild mediastinal lymphadenopathy noted. IMPRESSION: 1. An acute right MCA territory infarct due to an abrupt vessel cut off within a proximal right M2 se gment. 2. Additional areas of narrowing within the cerebral arteries as described above. 3. The common carotid and cervical internal carotid arteries are patent. 4. Moderate focal stenosis at the takeoff of the left vertebral artery. 5. Mild interstitial pulmonary edema. 6. Mild mediastinal lymphadenopathy. This could be due to the emphysema. [address] follow-up r ecommended to ensure stability/resolution. ACT 112: Negative or not required by law. Electronically signed by: Jamie Rosales M.D. 06/16/2022 12:33 PM
[2022-06-16 12:57] LABS: INR 1.2 (0.9-1.1)
[2022-06-16] MEDS ORDERED: ASPIRIN 300 MG SUPP PR ONE (13:00)
[2022-06-16] MEDS: MAGNESIUM SULFATE / D5W 1 GM/100 ML BAG IV SCH ×2 (13:11→14:12)
[2022-06-16] MEDS: SODIUM CHLORIDE 0.9% 1000ML 1,000 ML IV SCH ×2 (13:12→23:51)
--- NOTE | 2022-06-16 13:47 | XRay Report ---
XR chest 1V portable HISTORY: Left-sided weakness. neuro deficit, acute stroke suspected COMPARISON: Chest 01/21/2020. FINDINGS: The no pneumothorax. No pleural effusions. Cardiomegaly and mild interstitial pulmonary anita ma persists. No new focal lung consolidations. There are calcifications within the aortic knob. No ac [place] fractures identified. IMPRESSION: Mild cardiomegaly and mild interstitial pulmonary edema. This is similar to the prior study. ACT 112: Negative or not required by law. Electronically signed by: Jamie Rosales M.D. 06/16/2022 1:46 PM
--- NOTE | 2022-06-16 14:06 | History & Physical Report ---
Date of Service June 16, 2022 Assessment & Plan (1) Acute right MCA stroke: Plan: Right MCA, M2 CVA, suspect cardioembolic Echo with bubble study pending Case was [place] [facility] [place] and neuro-interventionalist. Initially was recommended for [facility] and attempted endovascular retrieval, [facility] was not able to fly. Case and images was reviewed subsequently by neuro interventional list who felt that both the timing of onset and location of his occlusion it would not be amenable to endovascular retrieval. He is also out of the window for TNKase. Given that endovascular retrieval is no longer recommended, and patient is out of window for TNKase patient was recommended for admission to our facility with secondary management. Did review with Dr. Mccallum on admission, agree with continuing aspirin therapy at this time and adding a nticoagulation for A-fib prophylaxis at 24-48 hours. Will defer dual antiplatelet therapy due to bleeding risk with aspirin/A-fib, and patient. At bedside patient remains with improving but still significant left-sided weakness, decreased sensation, facial droop and dysarthria without concurrent receptive or expressive aphasia Continue aspirin Permissive hypertension, patient is normotensive at the bedside Continue neurochecks Obtain MRI overnight, repeat CT for any signs of worsening deficits/[facility] at [phone], charge nurse at extension [phone] time to obtain family contact to update on patient's condition. He is full code, patient endorses this Continue atorvastatin Permissive hypertension for 24 hours, labetalol 5 mg every 6 hours on-call for SBP greater than 220. Patient is normotensive at the bedside. A1c pending A-fib Continue metoprolol, anticipate DOAC as otherwise noted Rate controlled Hyperlipidemia Continue atorvastatin Hypertension Continue metoprolol Permissive hypertension for 24 hours given acute stroke, he is normotensive at bedside DVT prophylaxis: Add DOAC at 24-48 hours CODE STATUS: Full code Disposition: PCU Diet: Heart healthy once able to pass speech swallow, n.p.o. until then (2) Atrial fibrillation: (3) HTN (hypertension): (4) Hypertension: History of Present Illness Primary Care Provider: CARO Wang Gracia is an 82-year-old male with past medical history of A-fib not on anticoagulation, hyperlipidemia on atorvastatin, Last known normal around 7 AM, 5 hours before hospital admission. History of A- fib and aspirin without anticoagulation. At some point since then he was found fallen out of bed confused and with left-sided weakness and left-sided facial droop and dysarthria. No prior similar symptoms. Patient is confused and a poor historian, but improving gradually while in the ER. Denies bleeding problems, denies prior strokes. Endorses only medical history is A-fib, blood pressure, and cholesterol. He is not on a blood thinner. He reports he would want to be full code. At time of bedside visit history is somewhat limited by dysarthria and tangential thought process. He denies pain. Endorses he has had chronically diminished sensation in his left leg, is not sure if this is changed. Endorses that he feels weak on the left side, but does not notice this much unless he is paying attention to it. Denies chest pain, chest pressure, shortness of breath, difficulty breathing, lightheadedness, dizziness. Denies leg swelling. CTA-H/N/CT-H: IMPRESSION:1. An acute right MCA territory infarct due to an abrupt vessel cut off within a proximal right M2 segment.2. Additional areas of narrowing within the cerebral arteries as described above.3. The common carotid and cervical internal carotid arteries are patent. 4. 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 Mild interstitial pulmonary edema. 6. Mild mediastinal lymphadenopathy. This could be due to the emphysema. [address] follow-up recommended to ensure stability /resolution. Medical History: Reviewed Medications: Reviewed Surgical History: Reviewed Family history: Reviewed Allergies: Reviewed Social History: No tobacco/alcohol Code Status: Full code Allergies Allergy/AdvReac Type Severity Reaction Status Date / Time No Known Allergies Allergy Verified 01/21/20 20:42 Home Medications Medication Instructions Recorded Confirmed Type atorvastatin 20 mg tablet 20 mg PO HS 07/14/19 01/21/20 History metoprolol tartrate 50 mg tablet 50 mg PO BID 07/15/19 01/21/20 History aspirin 81 mg chewable tablet 81 mg PO DAILY 01/21/20 01/21/20 History Past Med/Surg History Medical History Aortic valve disorder Atrial fibrillation Atrial fibrillation and flutter Atrial fibrillation with rapid ventricular response Elevated d-dimer Elevated troponin Hypertension Hypoxia Mitral regurgitation Other nonrheumatic aortic valve disorders PAD (peripheral artery disease) Renal insufficiency Tricuspid regurgitation Social History Smoking Status: Unknown if ever smoked Tobacco Type: Cigarettes Second Hand Exposure: No; Do You Dip or Chew Tobacco: No; Hx Alcohol Use: No Hx Substance Use: No Preferred Language: Citizen Of [place] Communication Ability: Effective Manager Social Services Required: No Beliefs That Will Affect Care: None Current Living Situation: Other Current Living Situation Comment: [facility]ATE Feels Safe at Home: Yes Assistive Devices: None Review of Systems Review of Systems: All systems reviewed & are unremarkable except as noted in HPI & below Physical Exam Physical Exam: General: Oriented to name, place, year. Exam somewhat limited by dysarthria and tangential thought process HEENT: Atraumatic, normocephalic. Pupils equal and reactive to light. Vision and hearing grossly intact. Pulm: CTAB A&P. -wheezes, -rales, -rhonchi. Symmetrical chest rise. No increased work of breathing. No respiratory distress. Cardiac: Irregularly irregular, -mrg. Radial pulses intact and symmetrical. Abdominal: Nontender, nondistended, soft. BS present. Neuro: Left-sided facial droop is present. Unable to contain air on cheek puff. Tongue protrudes midline. Endorses decreased sensation in left side of face in all distributions. Dysarthric speech. Extremity exam slightly limited by present shackles and tangential TP.. [place] [employer] Hand strength 1/5 left, 5/5 right. Elbow flexion 2/5 left, 5/5 right. Shoulder flexion 2/5 left, 5/5 right. Hip flexion with minimal activation while laying in bed on the left, 5/5 right. Ankle dorsiflexion/plantarflexion 3/5 left, 5/5 right. Endorses intact sensation to soft touch in hands and feet bilaterally, although greatly reduced in left hand and left foot compared to right. Results & Data Results & Data Vital Signs (Past 12 Hours) Vital Signs Temp Pulse Pulse Resp BP BP Pulse Ox 06/16/22 13:45 88 21 94 06/16/22 13:45 139/67 06/16/22 13:31 108 H 19 94 06/16/22 13:31 110/64 06/16/22 13:30 93 H 25 H 95 06/16/22 13:15 88 21 94 06/16/22 13:15 126/63 06/16/22 13:00 95 H 22 06/16/22 13:00 134/71 06/16/22 12:45 114 H 24 94 06/16/22 12:45 126/95 06/16/22 12:00 108 H 29 H 06/16/22 12:00 119/81 06/16/22 12:34 97 H 18 127/81 06/16/22 12:17 86 06/16/22 12:25 89 18 129/74 94 06/16/22 11:52 06/16/22 11:52 35.7 C L 109 H 24 116/78 92 O2 Del Method 06/16/22 13:45 Room Air 06/16/22 13:45 06/16/22 13:31 Room Air 06/16/22 13:31 06/16/22 13:30 Room Air 06/16/22 13:15 Room Air 06/16/22 13:15 06/16/22 13:00 06/16/22 13:00 06/16/22 12:45 06/16/22 12:45 06/16/22 12:00 06/16/22 12:00 06/16/22 12:34 06/16/22 12:17 06/16/22 12:25 Room Air 06/16/22 11:52 Room Air 06/16/22 11:52 Room Air PG Care Time/CCT Total # of Minutes Spent Total Time Spent with Patient: Total time spent is greater than 50% in coordination of care (as documented) at patient's floor/unit and/or counseling patient: Coding Level of Care Code 35282 INT INP/OBS CARE 3/75MIN Diagnoses Acute right MCA stroke I63.511 Atrial fibrillation I48.91 HTN (hypertension) I10
[2022-06-16 15:01] LABS: Appearance Urine Clear (Clear); Bacteria Urine Automated Negative (Negative); Bilirubin Urine Negative (Negative); Blood Urine 1+ (Negative); Cast Urine Automated 0 /lpf (0-5); Color Urine Yellow; Glucose Urine UA Negative (Negative); Ketones Urine Negative (Negative); Leukocyte Esterase Urine Negative (Negative); Nitrite Urine Negative (Negative); Protein Urine Negative (Negative); Specific Gravity Urine 1.031 (1.000-1.030); Urobilinogen Urine Negative (Negative)
[2022-06-16] MEDS ORDERED: LABETALOL HCL IV 5 MG/ML 20ML IV PRN (17:03)
[2022-06-16] MEDS ORDERED: PHARMACIST DISCHARGE MED REC CONSULT PRN (17:03)
[2022-06-16] MEDS ORDERED: NSS + 20MEQ KCL 20 MEQ/1,000 ML BAG IV SCH (17:03)
[2022-06-16] MEDS: ATORVASTATIN 40 MG TAB PO SCH (20:24)
--- NOTE | 2022-06-16 23:55 | Magnetic Resonance Report ---
Exam(s): MRI HEAD Without Contrast History: Reason for exam: cva. Exam: MR HEAD Without Contrast Comparison: CT head, CT angiogram 06/16/2022 Technique: Multisequence multiplanar MRI of the brain on 1.5 [employer] MRI scanner. Findings: Acute infarct manifested by restricted diffusion involving the right MCA distribution in the frontoparietal partially involving the left posterior temporal lobe. Foci of blooming artifact on gradient echo sequences suggestive of hemorrhagic transformation within the infarct. Otherwise sexton-white matter differentiation is seen to be normal. Extra- axial CSF spaces are unremarkable. Globes, orbits, parasellar region, bilateral cerebellopontine angles are visualized and normal. Paranasal sinuses, mastoid air cells are clear. Impression: 1. Acute infarct with scattered hemorrhagic transformation in the infarct bed involving the frontoparietal lobe and portion of the posterior temporal lobe. Electronically signed by: Monica Hein MD 06/16/22 23:54 PM
[2022-06-17 06:17] LABS: BUN Creatinine Ratio 17.7 (10-20); Calcium 8.4 mg/dl (8.6-10.3); Chol HDL Ratio 3.1 (0-5); Creatinine Clr Calc Pharmacy 52.9 ml/min; Est GFR (African American) 70.3 ml/min; Est GFR (Non-African American) 60.6 ml/min; Potassium 4.8 mmol/L (3.5-5.1)
[2022-06-17 06:36] LABS: Basophils # (auto) 0.03 K/uL (0-0.2); Basophils % (auto) 0.3 %; Hematocrit (blood only) 35.3 % (42.0-52.0); Hemoglobin 12.1 g/dl (14.0-18.0); Immature Granulocytes # (auto) 0.02 K/uL (0.01-0.20); Immature Granulocytes % (auto) 0.2 %; Lymphocytes # (auto) 0.71 K/uL (1.2-3.4); Lymphocytes % (auto) 7.6 %; Mean Corpuscular Hemoglobin 30.9 pg (25.0-34.0); Mean Corpuscular Hgb Conc 34.3 g/dL (32.0-36.0); Mean Corpuscular Volume 90.3 fL (80.0-100.0); Mean Platelet Volume 12.3 fL (9.4-12.4); Monocytes # (auto) 0.76 K/uL (0.11-0.59); Monocytes % (auto) 8.1 %; Neutrophils # (auto) 7.85 K/uL (1.40-6.50); Neutrophils % (auto) 83.8 %; Platelet Count 155 K/uL (130-400); RDW Coefficient of Variation 14.5 % (11.5-14.5); RDW Standard Deviation 47.6 fL (36.4-46.3); Red Blood Count 3.91 M/uL (4.70-6.10); White Blood Count 9.37 K/ul (4.8-10.8)
[2022-06-17 07:45] LABS: Estimated Average Glucose 126 mg/dl
[2022-06-17] MEDS ORDERED: DIGOXIN 250 MCG in SYRINGE 9 ML IV STA (10:53)
[2022-06-17] MEDS: ASPIRIN 81 MG CHEW PO SCH (11:15)
--- NOTE | 2022-06-17 12:27 | Hospitalist Progress Note ---
Date of Service June 17, 2022 Assessment & Plan (1) Acute right MCA stroke: Plan: Likely embolic due to permanent a.fib. Was not on anticoagulation at the group home. He also has ICA stenosis (75% on right) thus this is also a possible culprit. Unfortunately he has evidence of some mild hemorrhagic transformation on MRI brain. Repeat CT head ordered by Dr Mccallum is stable. Will repeat another CT head in am tomorrow. Appreciate Dr Mccallum's consultation and recs. HOLD aspirin and any anticoagulation. Depending on CT head results tomorrow may be able to resume aspirin then. Cont statin - given the severity of his ICA stenosis and other areas of stenosis increase lipitor from 20mg/day to 40mg/day. Allow permissive HTN - hold HCTZ, hold beta sandhya. PT, OT, speech evals. (2) Cerebrovascular accident (CVA) with intracranial hemorrhage: Plan: MRI brain shows hemorrhagic transformation. CT head done this afternoon with stable findings. Hold chemical DVT proph. Hold asa. No systemic anticoagulation until given permission by neurology. Repeat CT head on 06/18/22 to ensure no progression of hemorrhage. (3) Atrial fibrillation with rapid ventricular response: Plan: Defer use of beta sandhya or CCB to allow permissive HTN. He needs better rate control, however. Thus, will dig load - 250mcg IV q6h x 3 doses, then PO dig 0.125mg daily starting 06/18/22 afternoon. Deferring on anticoagulation due to #2. (4) Acute metabolic encephalopathy: Plan: 2nd to stroke. supportive care. (5) Acute heart failure with preserved ejection fraction (HFpEF): Plan: Patient's cxr and clinical exam c/w pulmonary edema. He is stable in room air fortunately. Ideally we provide diuresis but, in light of #1 and need for optimal brain perfusion, defer on diuretic therapy today. Depending on clinical status tomorrow consider lasix then. HFpEF likely due to uncontrolled a.fib. Can't exclude poor diet at group home, etc. 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 statin. ultimately resume aspirin. need for intervention of right ICA stenosis by vascular surgery ?? need to d/w neurology. (7) HTN (hypertension): Plan: HOLD HCTZ HOLD BB allow permissive HTN today due to #1 (8) LVH (left ventricular hypertrophy): Plan: severe on echo will need beta sandhya resumed when able (9) Valvular heart disease: Plan: moderate moderate TR mild-mod MR medical management (10) Prediabetes: Plan: a1c 6% diet control for now check BSGs add novolog if needed (11) DVT prophylaxis: Plan: SCDS only for now will likely not be able to use any chemical DVT proph during this stay due to #2 above Admission and Anticipated Discharge Date Admission Date: June 16, 2022 Subjective patient with rapid a.fib on monitor all night during the visit he was resting comfortably he was confused, asking me to "move his cell block" I reminded him he was in the hospital - not back at the group home he was visibly dyspneic - guards reported he had just moved around in the bed he reports chronic [place] at the group home he reports mild weakness of his left leg and left arm; no symptoms on right guards confirm he has been confused all morning Review of Systems Review of Systems: neuro - denies headache cv - denies chest pain pulm - reports dyspnea but no cough GI - no abd pain or nausea Physical Exam Physical Exam: gen - confused, dyspneic appearing/tachypneic at times face - mild L lower facial droop mouth - MMM neck - mild JVD present heart - tachy, s1 s2, irregularly irregular, 1/6 systolic murmur LSB lungs - b/l basilar rales, tachypneic at times abd - soft NT ND BS+ ext - no edema, pulses 2+ b/l neuro - strength RUE/RLE 5/5; left sided strength LUE/LLE 4/5; +pronator drift on left; facial droop on left psych - confused, tangential Results & Data Results & Data Vital Signs (Past 12 Hours) Vital Signs Temp Pulse Pulse Pulse Resp BP Pulse Ox 06/17/22 11:15 120 H 06/17/22 11:14 36.4 C L 120 H 18 123/78 93 06/17/22 06:43 37.0 C 118 H 18 131/93 94 06/17/22 04:10 36.8 C 114 H 18 142/88 H 97 O2 Del Method 06/17/22 11:15 06/17/22 11:14 Room Air 06/17/22 06:43 Room Air 06/17/22 04:10 Room Air Laboratory Results Laboratory Results - last 24 hr 06/16/22 06/16/22 06/16/22 11:48 11:48 12:06 WBC RBC Hgb Hct MCV MCH MCHC RDW Std Deviation RDW Coeff of Gloria Plt Count MPV Immature Gran % (Auto) Neut % (Auto) Lymph % (Auto) [place] % (Auto) Eos % (Auto) Baso % (Auto) Neut # (Auto) Lymph # (Auto) [place] # (Auto) Eos # (Auto) Baso # (Auto) Immature Gran # (Auto) PT 13.0 H INR 1.2 H APTT 28.0 PTT Ratio 1.0 Sodium 139 Potassium 4.1 Chloride 104 Carbon Dioxide 26 Anion Gap 9 BUN 29 H Creatinine 1.34 Est Cr Clr Drug Dosing 48.8 Est GFR ( Amer) 57.2 Est GFR (Non-Af Amer) 49.3 BUN/Creatinine Ratio 21.6 H Glucose 143 H Estimat Average Glucose Hemoglobin A1c Lactate Calcium 9.1 Magnesium 2.0 Total Bilirubin 1.1 H AST 21 ALT 11 Alkaline Phosphatase 80 Troponin I High Sens 17.1 Total Protein 6.8 Albumin 4.0 Globulin 2.8 Albumin/Globulin Ratio 1.4 Triglycerides Cholesterol LDL Cholesterol, Calc VLDL Cholesterol, Calc HDL Cholesterol Cholesterol/HDL Ratio Urine Color Urine Appearance Urine pH Ur Specific Ewing Urine Protein Urine Glucose (UA) Urine Ketones Urine Blood Urine Nitrite Urine Bilirubin Urine Urobilinogen Ur Leukocyte Esterase Urine WBC (Auto) Urine RBC (Auto) U Hyaline Cast (Auto) U Epithel Cells (Auto) Urine Bacteria (Auto) SARS-CoV-2, RNA, NAAT Blood Type A Positive Antibody Screen NEGATIVE 06/16/22 06/16/22 06/16/22 12:29 12:30 14:35 WBC RBC Hgb Hct MCV MCH MCHC RDW Std Deviation RDW Coeff of Gloria Plt Count MPV Immature Gran % (Auto) Neut % (Auto) Lymph % (Auto) [place] % (Auto) Eos % (Auto) Baso % (Auto) Neut # (Auto) Lymph # (Auto) [place] # (Auto) Eos # (Auto) Baso # (Auto) Immature Gran # (Auto) PT INR APTT PTT Ratio Sodium Potassium Chloride Carbon Dioxide Anion Gap BUN Creatinine Est Cr Clr Drug Dosing Est GFR ( Amer) Est GFR (Non-Af Amer) BUN/Creatinine Ratio Glucose Estimat Average Glucose Hemoglobin A1c Lactate 1.6 Calcium Magnesium Total Bilirubin AST ALT Alkaline Phosphatase Troponin I High Sens Total Protein Albumin Globulin Albumin/Globulin Ratio Triglycerides Cholesterol LDL Cholesterol, Calc VLDL Cholesterol, Calc HDL Cholesterol Cholesterol/HDL Ratio Urine Color Yellow Urine Appearance Clear Urine pH 6.0 Ur Specific [place]wing 1.031 H Urine Protein Negative Urine Glucose (UA) Negative Urine Ketones Negative Urine Blood 1+ H Urine Nitrite Negative Urine Bilirubin Negative Urine Urobilinogen Negative Ur Leukocyte Esterase Negative Urine WBC (Auto) 1-5 Urine RBC (Auto) 10-30 H U Hyaline Cast (Auto) 0 U Epithel Cells (Auto) 5-10 H Urine Bacteria (Auto) Negative SARS-CoV-2, RNA, NAAT NEGATIVE Blood Type Antibody Screen 06/17/22 06/17/22 06/17/22 05:32 05:32 05:32 WBC 9.37 RBC 3.91 L Hgb 12.1 L Hct 35.3 L MCV 90.3 MCH 30.9 MCHC 34.3 RDW Std Deviation 47.6 H RDW Coeff of Gloria 14.5 Plt Count 155 MPV 12.3 Immature Gran % (Auto) 0.2 Neut % (Auto) 83.8 Lymph % (Auto) 7.6 [place] % (Auto) 8.1 Eos % (Auto) 0.0 Baso % (Auto) 0.3 Neut # (Auto) 7.85 H Lymph # (Auto) 0.71 L [place] # (Auto) 0.76 H Eos # (Auto) 0.00 Baso # (Auto) 0.03 Immature Gran # (Auto) 0.02 PT INR APTT PTT Ratio Sodium 137 Potassium 4.8 Chloride 108 H Carbon Dioxide 21 Anion Gap 8 BUN 20 Creatinine 1.13 Est Cr Clr Drug Dosing 52.9 Est GFR ( Amer) 70.3 Est GFR (Non-Af Amer) 60.6 BUN/Creatinine Ratio 17.7 Glucose 108 H Estimat Average Glucose 126 Hemoglobin A1c 6.0 H Lactate Calcium 8.4 L Magnesium Total Bilirubin AST ALT Alkaline Phosphatase Troponin I High Sens Total Protein Albumin Globulin Albumin/Globulin Ratio Triglycerides 66 Cholesterol 89 LDL Cholesterol, Calc 47 VLDL Cholesterol, Calc 13 HDL Cholesterol 29 Cholesterol/HDL Ratio 3.1 Urine Color Urine Appearance Urine pH Ur Specific Ewing Urine Protein Urine Glucose (UA) Urine Ketones Urine Blood Urine Nitrite Urine Bilirubin Urine Urobilinogen Ur Leukocyte Esterase Urine WBC (Auto) Urine RBC (Auto) U Hyaline Cast (Auto) U Epithel Cells (Auto) Urine Bacteria (Auto) SARS-CoV-2, RNA, NAAT Blood Type Antibody Screen Diagnostic Findings Head CT 06/17/22 12:21 CT SCAN OF THE BRAIN WITHOUT IV CONTRAST CLINICAL HISTORY: Follow-up hemorrhagic stroke. COMPARISON STUDY: CT and MRI of the brain dated 06/16/2022. TECHNIQUE: Unenhanced axial CT scan of the brain is performed from the vertex to the skull base. A dose lowering technique was utilized adhering to the principles of ALARA. The skull base was scanned twice due to motion artifact. CT DOSE: 921.40 mGy.cm FINDINGS: Brain parenchyma: There is a large evolving right MCA territory infarct with foci of hemorrhagic conversion. There is associated edema with effacement of the overlying cortical sulci. No right to left midline shift is identified. There is age-related involutional change noting mild to moderate subcortical and periventricular microangiopathic disease. Foci of left frontal and parietal encephalomalacia are unchanged and consistent with remote infarcts. No extra-axial fluid collection is seen. Ventricles, sulci, cisterns: Prominent secondary to involutional change. Intracranial vasculature: There is atherosclerotic calcification of the cavernous carotid and vertebral arteries. Calvarium: Unremarkable. Sinuses and mastoids: There is trace mucosal thickening within the maxillary antra. The remaining paranasal sinuses are clear. The mastoid air cells are well pneumatized. Orbits: The bony orbits are grossly intact. IMPRESSION: 1. Large evolving right MCA territory infarct with associated edema and small foci of hemorrhage as detailed above. 2. There is no midline shift. ACT 112: Negative or not required by law. Electronically signed by: John Perla M.D. 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
--- NOTE | 2022-06-17 12:34 | Neurology Consultation ---
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 He presented outside of the window for IV thrombolytics. Furthermore, he was not considered an appropriate candidate for endovascular thrombectomy given distal location of the thrombus. There is also evidence of hemorrhagic transformation within the acute infarct on MRI. Clinically, the patient is awake, alert, he is not complaining of headache, he does have moderate left hemineglect as well as a mild left hemiparesis on examination. He also exhibits some visual field loss to the left. As above, patient's stroke likely cardioembolic in the context of atrial fibrillation, not on an anticoagulant. Would recommend obtaining a repeat noncontrast CT of the head today, (I have placed the order in [facility] Depending on results, it would not be unreasonable to consider starting Eliquis given his history of atrial fibrillation and recent stroke. However, I would suggest delaying start of Eliquis a few more days so we can ensure clinical stability, no progressive hemorrhage on additional follow-up CT of the head. May continue with daily low-dose aspirin. However, if follow-up CT of the head suggests evolving or progressive hemorrhage would recommend holding aspirin. Patient has been taking atorvastatin 20 mg/day. The dosage was increased to 40 mg/day in the context of this hospitalization. However, I see that his LDL was 47 on a lipid panel completed this morning. In light of the hemorrhagic transformation and low LDL (less than 70), I would recommend temporarily holding the atorvastatin. This medication can be restarted in 1 week at the 40 mg dose in light of the bilateral intracranial ICA stenoses and left vertebral stenosis. Medical management recommended for the bilateral intracranial ICA stenoses (50% on the left, 75% on the right), which would consist of daily low-dose aspirin and atorvastatin as above. Patient has been normotensive. May allow for permissive hypertension acutely. Long-term blood pressure goal less than 130/85. PT/OT/speech therapy History of Present Illness Reason for Consultation: Right middle cerebral artery stroke with hemorrhage Requesting Physician: Dr. Oconnor Attending Physician: Sivakumar Oconnor MD History of Present Illness The patient is an 82-year-old male prisoner with a history of atrial fibrillation, on daily low-dose aspirin, not on an anticoagulant, hyperlipidemia, on atorvastatin, who presented to the emergency department yesterday as he had fallen out of bed and was found confused, with left-sided weakness and slurred speech. Last known well about 5 hours prior to his hospital evaluation. He had left-sided weakness as well as an element of left hemineglect on his initial examination in the emergency department. He was afebrile. He has been normotensive with an initial blood pressure of 116/78. A CBC revealed a mild anemia. Metabolic panel was unremarkable. Glucose 108. A CT of the head revealed an acute evolving right MCA territory infarct with loss of the normal sexton-white junction within the right subinsular cortex and right frontotemporal lobes. A CT angiogram of the head and neck revealed an abrupt vessel cut off within a proximal right M2 segment. There is no stenosis within the carotid and cervical internal carotid arteries bilaterally. There is moderate focal stenosis of the proximal left vertebral artery. A follow-up brain MRI has revealed an acute infarct within the right MCA territory involving the frontoparietal and left posterior temporal lobe. There are associated foci of blooming artifact consistent with hemorrhagic transformation. I did independently review these images and was able to appreciate the gyriform pattern of restricted diffusion consistent with an acute right MCA infarct as well as multifocal areas of hemorrhagic transformation on axial T2*fast sequences. The right MCA territory stroke is also visible on coronal FLAIR imaging that corresponds to the acute abnormality seen on DWI. He is currently receiving daily low-dose aspirin. He has been taking atorvastatin 20 mg/day prior to [facility]. The dosage was increased to 40 mg/day. I do see that a lipid panel was completed this morning with an LDL of 47. Currently, the patient does not have any specific or focal complaint. He does exhibit mild left hemineglect. He denies headache or dizziness. He does not complain of weakness, sensory loss, or vision disturbance. Allergies Allergy/AdvReac Type Severity Reaction Status Date / Time No Known Allergies Allergy Verified 01/21/20 20:42 Home Medications Medication Instructions Recorded Confirmed Type atorvastatin 20 mg tablet 20 mg PO HS 07/14/19 06/16/22 History metoprolol tartrate 50 mg tablet 50 mg PO BID 07/15/19 06/16/22 History aspirin 81 mg chewable tablet 81 mg PO DAILY 01/21/20 06/16/22 History hydrochlorothiazide 12.5 mg capsule 12.5 mg PO DAILY 06/16/22 06/16/22 History ibuprofen 600 mg tablet 600 mg PO TID PRN Pain 06/16/22 06/16/22 History Patient History Medical History Aortic valve disorder Atrial fibrillation Atrial fibrillation and flutter Atrial fibrillation with rapid ventricular response Elevated d-dimer Elevated troponin Hypertension Hypoxia Mitral regurgitation Other nonrheumatic aortic valve disorders PAD (peripheral artery disease) Renal insufficiency Tricuspid regurgitation Social History Smoking Status: Former smoker Tobacco Type: Cigarettes Second Hand Exposure: No; Do You Dip or Chew Tobacco: No; Hx Alcohol Use: No Hx Substance Use: No Preferred Language: Kiswahili Communication Ability: Impaired 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 Beliefs That Will Affect Care: None Current Living Situation: Other Current Living Situation Comment: [facility] Feels Safe at Home: Yes Assistive Devices: None Review of Systems Constitutional: no fever and no chills Eyes: no blind spots and no diplopia Ear, Nose, Mouth, Throat: no hearing loss Respiratory: no cough and no dyspnea Cardiovascular: + palpitations Gastrointestinal: no abdominal pain and no vomiting Genitourinary: no dysuria Musculoskeletal: no neck pain and no myalgia Integumentary: no rash and no lesions Neurologic: as per Subjective / HPI; no headache(s) Psychiatric: no depression and no anxiety Hematologic / Lymphatic: no easy bleeding and no easy bruising Exam (Neuro) Constitutional: well developed and well nourished Eyes: normal visual garza by confrontation, PERRL and EOM intact bilaterally; no papilledema Cardiovascular: Vessels: no carotid bruit Neurologic: Oriented to:: Person, Place and Time Memory: Short Term Intact and Remote Intact Attention: Span Intact and Concentration Intact Speech Fluency: negative Dysarthria or Dysfluency Speech Aphasia: negative Aphasia Fund of Knowledge: Current Events, Past History and Vocabulary Cranial Nerves: Normal III, IV, , V, VIII, IX, X, XI and XII; Abnorm II (Visual field deficit noted to the left with confrontation testing) or VII (There is flattening of the left nasolabial fold) Motor Strength: Hemiparesis (There is a mild left hemiparesis, in part difficult to evaluate due to left hemineglect, able to lift the left arm and leg out of the bed but does have diminished strength, diminished hot mill tin roller strength noted for the left hand) Laterality: Left Motor Tone: Normal Lower Extremities and Normal Upper Extremities Muscle Bulk/Involuntary Movements: Action Tremor (Mild bilateral upper extremity resting postural and action tremor); negative Muscle Atrophy Sensation: negative Light Touch Intact, Pain/Temperature Intact, Vibration Intact or Proprioception Intact Coordination: Finger-Nose Abnormal Laterality: Left and Heel-Schilling Abnormal Laterality: Left Deep Tendon Reflexes: Rt Triceps: 2+, Lt Triceps: 3+, Rt Biceps: 2+, Lt Biceps: 3+, Rt Brachioradialis: 2+, Lt Brachioradialis: 3+, Rt Patellar: 2+, Lt Patellar: 3+, Rt Ankle: 1+ and Lt Ankle: 2+ Special Tests: Babinski Present (Left) Details: Gait cannot be tested. Patient exhibits extinction on the left to double simultaneous stimulation. Exhibits left hemineglect. Results & Data Vital Signs (Past 12 Hours) Vital Signs Temp Pulse Pulse Pulse Resp BP Pulse Ox 06/17/22 11:15 120 H 06/17/22 11:14 36.4 C L 120 H 18 123/78 93 06/17/22 06:43 37.0 C 118 H 18 131/93 94 06/17/22 04:10 36.8 C 114 H 18 142/88 H 97 06/16/22 23:47 36.8 C 108 H 18 136/92 96 O2 Del Method 06/17/22 11:15 06/17/22 11:14 Room Air 06/17/22 06:43 Room Air 06/17/22 04:10 Room Air 06/16/22 23:47 Room Air Laboratory Results WBC 9.37, hemoglobin 12.1, hematocrit 35.3, MCV 90.3, platelet count 155, sodium 137, potassium 4.8, BUN 20, creatinine 1.13, glucose 108, hemoglobin A1c 6.0, calcium 8.4, magnesium 2.0, AST 21, ALT 11, troponin 17.1, triglycerides 66, cholesterol 89, LDL 47, VLDL 13, HDL 29, SARS-CoV-[address] of the head including CT angiography of the head and neck and brain MRI are as described in the history of present illness. There is also evidence of chronic infarcts within the left frontal and parietal lobes as well as old i nfarcts within the right cerebellar hemisphere. In addition to the probable thrombus within the M2 segment of the right MCA, there is bilateral supraclinoid ICA stenosis, 50% on the left, and 75% on the right. There is mild multifocal narrowing at the distal basilar artery. There is focal severe narrowing within a short segment of the proximal left COMPUTER GRAPHICS ILLUSTRATOR. I independently reviewed these images. Electrocardiogram reveals atrial fibrillation, 97 bpm. PG Care Time/CCT Total # of Minutes Spent Total Time Spent with Patient: 85 minutes spent reviewing record, direct imaging review including CT of the head, CT angiography of the head and neck, and brain MRI, review of labs including lipid panel, medical tests including ECG, patient interview and examination, medical documentation, and customer orders clerk for follow-up noncontrast CT of the head. 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
--- NOTE | 2022-06-17 14:17 | CT Scan Report ---
CT SCAN OF THE BRAIN WITHOUT IV CONTRAST CLINICAL HISTORY: Follow-up hemorrhagic stroke. COMPARISON STUDY: CT and MRI of the brain dated 06/16/2022. TECHNIQUE: Unenhanced axial CT scan of the brain is performed from the vertex to the skull base. A do se lowering technique was utilized adhering to the principles of ALARA. The skull base was scanned tw ice due to motion artifact. CT DOSE: 921.40 mGy.cm FINDINGS: Brain parenchyma: There is a large evolving right MCA territory infarct with foci of hemorrhagic conv ersion. There is associated edema with effacement of the overlying cortical sulci. No right to left m idline shift is identified. There is age-related involutional change noting mild to moderate subcorti jamie and periventricular microangiopathic disease. Foci of left frontal and parietal encephalomalacia are unchanged and consistent with remote infarcts. No extra-axial fluid collection is seen. Ventricles, sulci, cisterns: Prominent secondary to involutional change. Intracranial vasculature: There is atherosclerotic calcification of the cavernous carotid and vertebr al arteries. Calvarium: Unremarkable. Sinuses and mastoids: There is trace mucosal thickening within the maxillary antra. The remaining par anasal sinuses are clear. The mastoid air cells are well pneumatized. Orbits: The bony orbits are grossly intact. IMPRESSION: 1. Large evolving right MCA territory infarct with associated edema and small foci of hemorrhage as d etailed above. 2. There is no midline shift. ACT 112: Negative or not required by law. Electronically signed by: John Perla M.D. 06/17/2022 2:15 PM
--- NOTE | 2022-06-17 15:49 | XCELERA ---
[id number]
[2022-06-17] MEDS ORDERED: DIGOXIN 250 MCG in SYRINGE 9 ML IV ONE ×2 (17:00→23:30)
[2022-06-17] MEDS: ATORVASTATIN 40 MG TAB PO SCH (20:19)
[2022-06-18 07:11] LABS: Est GFR (Non-African American) 55.3 ml/min; Potassium 4.8 mmol/L (3.5-5.1)
--- NOTE | 2022-06-18 10:18 | CT Scan Report ---
CT head/brain wo con CLINICAL HISTORY: 82 years-old Male with R MCA CVA; hemorrhage; interval change. Follow-up study in a patient with right MCA infarct. TECHNIQUE: Multiple axial CT images of the head were obtained without contrast. A dose lowering tech nique was utilized adhering to the principles of ALARA. CT DOSE: 687.98 mGy.cm COMPARISON: Head CT 06/17/2022, CT head and brain MRI studies 06/16/2022 FINDINGS: Large evolving right MCA territorial infarct which is at least 48 hours old demonstrate progressive c ytotoxic edema with local mass effect resulting in sulcal effacement with gyral expansion. Partial ef facement of the right lateral ventricle without midline shift. Involutional changes with chronic micr ovascular ischemic disease. Areas of encephalomalacia within the left cerebral hemisphere compatible with chronic infarcts. Small foci of associated intraparenchymal hemorrhage within the infarct again noted measuring up to approximately 1.4 cm, stable from prior. Study is motion degraded. The calvarium is intact. The paranasal sinuses, mastoid air cells, and mid dle ear cavities are clear. IMPRESSION: 1. Large acute right MCA territory infarct which is likely approximately 48 hours old demonstrates pr ogressive cytotoxic edema with unchanged small foci of associated hemorrhage. 2. No midline shift. ACT 112: Negative or not required by law. The above report was generated using voice recognition software. It may contain grammatical, syntax o r spelling errors. Electronically signed by: Herberth Mcgee M.D. 06/18/2022 9:01 AM
--- NOTE | 2022-06-18 10:33 | Electrocardiogram Report ---
Test Reason : Blood Pressure : / mmHG Vent. Rate : 097 BPM Atrial Rate : 000 BPM P-R Int : 000 ms QRS Dur : 086 ms QT Int : 346 ms P-R-T Axes : 000 062 232 degrees QTc Int : 439 ms Atrial fibrillation Abnormal ECG When compared with ECG of 23-JAN-2020 07:57, ST no longer elevated in Inferior leads T wave inversion now evident in Inferior leads Inverted T waves have replaced nonspecific T wave abnormality in Lateral leads Confirmed by Pablo Ludwig ([id number]) on 06/18/2022 10:32:41 AM Referred By: Confirmed By:Pablo Ludwig
[2022-06-18 10:34] LABS: Basophils # (auto) 0.04 K/uL (0-0.2); Basophils % (auto) 0.3 %; Hematocrit (blood only) 41.8 % (42.0-52.0); Hemoglobin 14.3 g/dl (14.0-18.0); Immature Granulocytes # (auto) 0.02 K/uL (0.01-0.20); Immature Granulocytes % (auto) 0.2 %; Lymphocytes # (auto) 1.26 K/uL (1.2-3.4); Lymphocytes % (auto) 10.7 %; Mean Corpuscular Hemoglobin 30.6 pg (25.0-34.0); Mean Corpuscular Hgb Conc 34.2 g/dL (32.0-36.0); Mean Corpuscular Volume 89.5 fL (80.0-100.0); Mean Platelet Volume 12.4 fL (9.4-12.4); Monocytes # (auto) 1.25 K/uL (0.11-0.59); Monocytes % (auto) 10.7 %; Neutrophils # (auto) 9.16 K/uL (1.40-6.50); Neutrophils % (auto) 78.1 %; Platelet Count 167 K/uL (130-400); RDW Coefficient of Variation 14.6 % (11.5-14.5); RDW Standard Deviation 47.3 fL (36.4-46.3); Red Blood Count 4.67 M/uL (4.70-6.10); White Blood Count 11.73 K/ul (4.8-10.8)
--- NOTE | 2022-06-18 11:06 | Neurology Progress Note ---
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 As described previously, patient has a right M2 thrombus within the right middle cerebral artery territory and was not a candidate for IV thrombolytic therapy or endovascular thrombectomy. He has a history of atrial fibrillation and had not been on an anticoagulant. He also has intracranial carotid stenosis, 50% on the left, 75% on the right. Clinically, patient continues to exhibit left hemineglect and a mild left hemiparesis. He is somewhat somnolent this morning and there is some evidence of evolving cytotoxic edema associated with his acute stroke, the hemorrhagic foci are stable, however, no midline shift. Patient may resume daily low-dose aspirin therapy given observed stability of the stroke associated hemorrhagic foci. Going forward, he will also need anticoagulation in light of his history of atrial fibrillation. His current stroke is likely cardioembolic. I would recommend waiting 1 week, however, prior to initiating anticoagulation with Eliquis. I would recommend checking a follow-up noncontrast CT of the head in 2 days to continue to ensure stability. Continue to monitor blood pressure, current blood pressure appropriate. May allow for permissive hypertension acutely. Long-term blood pressure goal less than 130/85. Continue with atorvastatin 40 mg/day. Admission and Anticipated Discharge Date Admission Date: June 16, 2022 Subjective Follow-up for stroke Patient continues to exhibit some left-sided weakness and neglect. He is mildly lethargic this morning. He denies headache. He did have a follow-up CT of the head completed this morning, I independently reviewed the images. There is a large evolving right MCA territory stroke with associated progressive cytotoxic edema and unchanged small foci of associated hemorrhage, no midline shift. Patient's daily low-dose aspirin was placed on hold yesterday. Review of Systems Constitutional: no fever Neurologic: as per Subjective / HPI Results & Data Vital Signs (Past 12 Hours) Vital Signs Temp Pulse Pulse Resp BP Pulse Ox O2 Del Method 06/18/22 07:31 36.3 C L 79 18 133/75 91 Room Air 06/18/22 03:47 36.3 C L 78 18 135/74 94 Room Air 06/17/22 23:25 83 06/17/22 23:22 83 Laboratory Results WBC 11.73, hemoglobin 14.3, hematocrit 41.8, platelet count 167, sodium 136, po tassium 4.8, BUN 22, creatinine 1.22, glucose 102, calcium 9.0 Diagnostic Findings Follow-up CT of the head as described above, I independently reviewed these images. Echocardiogram completed yesterday revealed significant valvular heart disease with associated biatrial enlargement, normal EF, severe asymmetric septal hypertrophy, atrial septum intact with no evidence for atrial septal defect. Atrial fibrillation identified on ECG. Exam (Neuro) Neurologic: Oriented to:: Person; negative Place or Time Attention: negative Span Intact or Concentration Intact Cranial Nerves: Normal II and III, IV, ; Abnorm VII Motor Strength: Hemiparesis (mild) Laterality: Left Coordination: Finger-Nose Abnormal Laterality: Left Details: Patient is somnolent, somewhat inattentive this morning, continues to exhibit left hemineglect, extinguishes to double simultaneous stimulation, intact language comprehension, visual neglect to the left noted as well, has mild left- sided weakness, greater degree of motor neglect, however. 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
[2022-06-18] MEDS ORDERED: ACETAMINOPHEN 325 MG TAB PO ONE (11:08)
--- NOTE | 2022-06-18 13:24 | Pharmacy Report ---
- Date of Service June 18, 2022 - Pharmacy CVA/TIA Medication Review Medications to Prevent Stroke handout has been added to the patients discharge packet. Antiplatelet(s) * ASA 81mg PO daily Cholesterol * High intensity statin: atorvastatin 40 mg daily DVT Prophylaxis * SCD knee Therapeutic Anticoagulation * Hx Afib/Aflutter noted, but anticoagulation is being deferred for at least one week to monitor stability of hemorrhagic transformation. * Once appropriate, start apixaban per neuro recs. Type 2 Diabetes * Patient does not have T2DM (current HbA1c: 6.0%)
[2022-06-18] MEDS: DIGOXIN 0.125 MG TAB PO SCH (17:14)
--- NOTE | 2022-06-18 19:04 | XRay Report ---
SINGLE VIEW PELVIS; 2 VIEWS LEFT HIP CLINICAL HISTORY: Left hip pain. FINDINGS: An AP view of the pelvis with AP and frog leg views of the left hip are obtained. No prior studies are available for comparison at the time of dictation. The skeletal structures are osteopenic . There is no radiographic evidence of acute fracture involving the hips or bony pelvis. Mild arthrit ic change and joint space narrowing is seen in the hips. Moderate degenerative change is also seen in the sacroiliac joints. Lumbosacral spondylosis is partially imaged. The overlying soft tissues are w ithin normal limits. No bowel obstruction is seen. IMPRESSION: No acute bony abnormality is identified. Electronically signed by: John Perla M.D. 06/18/2022 7:03 PM
--- NOTE | 2022-06-18 19:23 | XRay Report ---
LUMBAR SPINE 3 VIEWS CLINICAL HISTORY: Left hip pain. FINDINGS: 3 views of the lumbar spine are obtained. No prior studies are available for comparison at the time of dictation. The skeletal structures are osteopenic. There is no radiographic evidence of a cute fracture or malalignment. Vertebral body height and alignment are maintained throughout the lumb ar spine. Mild dextrocurvature is noted in the mid lumbar region. Anterior and lateral marginal osteo phytes are seen throughout. The transverse and spinous processes appear intact. Facet arthropathy is noted in the mid to lower lumbar region. Moderate disc space narrowing is seen at all lumbar levels. Posterior disc osteophyte complexes are seen at L3-L4, L4-L5, and L5-S1. The visualized bony pelvis a ppears intact. Sclerotic change is noted in the sacroiliac joints. There is no bowel obstruction. Adv anced atherosclerotic calcification is seen in the abdominal aorta. IMPRESSION: 1. No acute bony abnormality is seen involving the lumbar spine. 2. Osteopenia and spondylotic change as above. Electronically signed by: John Perla M.D. 06/18/2022 7:22 PM
[2022-06-18] MEDS: ATORVASTATIN 40 MG TAB PO SCH (20:17)
--- NOTE | 2022-06-18 22:52 | Hospitalist Progress Note ---
Date of Service June 18, 2022 Assessment & Plan (1) Acute right MCA stroke: Plan: Likely embolic due to permanent a.fib. Was not on anticoagulation at the [facility]. He also has ICA stenosis (75% on right) thus this is also a possible culprit. Unfortunately he has evidence of some mild hemorrhagic transformation on MRI brain. Repeat CT head ordered by Dr Mccallum is stable. Given lack of clinical progression, will need to repeat CT scan in 2 days on 06/20. Appreciate Dr Mccallum's consultation and recs. HOLD aspirin and any anticoagulation. Depending on CT head results tomorrow may be able to resume aspirin then. Cont statin - given the severity of his ICA stenosis and other areas of stenosis increase lipitor from 20mg/day to 40mg/day. Allow permissive HTN - hold HCTZ, hold beta sandhya. PT, OT, speech evals. (2) Cerebrovascular accident (CVA) with intracranial hemorrhage: Plan: MRI brain shows hemorrhagic transformation. CT head done this afternoon with stable findings. Hold chemical DVT proph. Hold asa. No systemic anticoagulation until given permission by neurology. Repeat CT head on 06/18/22 to ensure no progression of hemorrhage. (3) Atrial fibrillation with rapid ventricular response: Plan: Defer use of beta sandhya or CCB to allow permissive HTN. He needs better rate control, however. Thus, will dig load - 250mcg IV q6h x 3 doses, then PO dig 0.125mg daily starting 06/18/22 afternoon. Deferring on anticoagulation due to #2. (4) Acute metabolic encephalopathy: Plan: 2nd to stroke. supportive care. (5) Acute heart failure with preserved ejection fraction (HFpEF): Plan: Patient's cxr and clinical exam c/w pulmonary edema. He is stable in room air fortunately. Ideally we provide diuresis but, in light of #1 and need for optimal brain perfusion, defer on diuretic therapy today. Depending on clinical status tomorrow consider lasix then. HFpEF likely due to uncontrolled a.fib. Can't exclude poor diet at senior care, etc. 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 statin. ultimately resume aspirin. need for intervention of right ICA stenosis by vascular surgery ?? need to d/w neurology. (7) HTN (hypertension): Plan: HOLD HCTZ HOLD BB allow permissive HTN today due to #1 (8) LVH (left ventricular hypertrophy): Plan: severe on echo will need beta sandhya resumed when able (9) Valvular heart disease: Plan: moderate moderate TR mild-mod MR medical management (10) Prediabetes: Plan: a1c 6% diet control for now check BSGs add novolog if needed (11) DVT prophylaxis: Plan: SCDS only for now will likely not be able to use any chemical DVT proph during this stay due to #2 above Plan Patient will likely require rehab at discharge, doubt [facility] will be able to handle patient as he needs assistance to get out of bed to use bathroom. Appreciate assistance with PT/OT Admission and Anticipated Discharge Date Admission Date: June 16, 2022 Subjective Patient is confused. Review of Systems Review of Systems: Unobtainable due to cognitive status Physical Exam Physical Exam: gen - confused, face - mild L lower facial droop mouth - MMM neck - mild JVD present heart - tachy, s1 s2, irregularly irregular, 1/6 systolic murmur LSB lungs - b/l basilar rales, tachypneic at times abd - soft NT ND BS+ ext - no edema, pulses 2+ b/l psych - confused, tangential Results & Data Results & Data Vital Signs (Past 12 Hours) Vital Signs Temp Pulse Pulse Resp BP Pulse Ox O2 Del Method 06/18/22 19:29 36.4 C L 98 H 20 135/84 93 Room Air 06/18/22 17:14 82 06/18/22 16:36 36.9 C 82 18 148/79 H 96 Room Air 06/18/22 12:00 67 06/18/22 12:00 Room Air 06/18/22 11:25 36.8 C 77 20 153/71 H 94 Room Air PG Care Time/CCT Total # of Minutes Spent Total Time Spent with Patient: Total time spent is greater than 50% in coordination of care (as documented) at patient's floor/unit and/or counseling patient: Coding Level of Care Code 66335 SUB INP/OBS CARE 3/50MIN Diagnoses Acute right MCA stroke I63.511 Cerebrovascular accident (CVA) with intracranial hemorrhage I61.9 Atrial fibrillation with rapid ventricular response I48.91 Acute metabolic encephalopathy G93.41 Acute heart failure with preserved ejection fraction (HFpEF) I50.31 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
[2022-06-19 06:27] LABS: Basophils # (auto) 0.03 K/uL (0-0.2); Basophils % (auto) 0.3 %; Eosinophils # (auto) 0.03 K/uL (0-0.50); Eosinophils % (auto) 0.3 %; Hematocrit (blood only) 41.4 % (42.0-52.0); Hemoglobin 14.2 g/dl (14.0-18.0); Immature Granulocytes # (auto) 0.03 K/uL (0.01-0.20); Immature Granulocytes % (auto) 0.3 %; Lymphocytes # (auto) 1.16 K/uL (1.2-3.4); Lymphocytes % (auto) 10.7 %; Mean Corpuscular Hgb Conc 34.3 g/dL (32.0-36.0); Mean Corpuscular Volume 90.4 fL (80.0-100.0); Mean Platelet Volume 11.9 fL (9.4-12.4); Monocytes # (auto) 1.43 K/uL (0.11-0.59); Monocytes % (auto) 13.2 %; Neutrophils # (auto) 8.13 K/uL (1.40-6.50); Neutrophils % (auto) 75.2 %; Platelet Count 148 K/uL (130-400); RDW Coefficient of Variation 14.2 % (11.5-14.5); RDW Standard Deviation 46.8 fL (36.4-46.3); Red Blood Count 4.58 M/uL (4.70-6.10); White Blood Count 10.81 K/ul (4.8-10.8)
[2022-06-19 07:20] LABS: Calcium 8.5 mg/dl (8.6-10.3); Potassium 4.4 mmol/L (3.5-5.1)
[2022-06-19 07:25] LABS: BUN Creatinine Ratio 23.9 (10-20); Creatinine Clr Calc Pharmacy 54.9 ml/min; Est GFR (African American) 73.4 ml/min; Est GFR (Non-African American) 63.3 ml/min
[2022-06-19] MEDS: ASPIRIN 81 MG CHEW PO SCH (08:20)
--- NOTE | 2022-06-19 12:01 | Hospitalist Progress Note ---
Date of Service June 19, 2022 Assessment & Plan (1) Acute right MCA stroke: Plan: Likely embolic due to permanent a.fib. Was not on anticoagulation at the [facility]. He also has supraclinoid ICA stenosis (75% on right) thus this is also a possible culprit. Unfortunately he has evidence of some mild hemorrhagic transformation on MRI brain. Repeat CT head ordered by Dr Mccallum is stable. Has left sided weakness but is 4/5 Given lack of clinical progression, will need to repeat CT scan tomorrow on 06/20. Appreciate Dr Mccallum's consultation and recs. Continue to HOLD aspirin and any anticoagulation. Depending on CT head results tomorrow may be able to resume aspirin then. Cont statin - given the severity of his ICA stenosis and other areas of stenosis increased lipitor from 20mg/day to 40mg/day. Allow permissive HTN - hold HCTZ, hold beta sandhya. PT, OT, speech evals. (2) Cerebrovascular accident (CVA) with intracranial hemorrhage: Plan: as above Hold chemical DVT proph. Hold asa. No systemic anticoagulation until given permission by neurology. Repeat CT head on 06/20/22 to ensure no progression of hemorrhage. (3) Atrial fibrillation with rapid ventricular response: Plan: Defer use of beta sandhya or CCB to allow permissive HTN. Given dig load fo rbetter rate control - 250mcg IV q6h x 3 doses, then PO dig 0.125mg daily starting 06/18/22 afternoon. Rates better check dig level tomorrow Deferring on anticoagulation due to ICH but eventually start Eliquis if [facility] will have available (4) Acute metabolic encephalopathy: Plan: 2nd to stroke.Seems to be improving supportive care. (5) Acute heart failure with preserved ejection fraction (HFpEF): Plan: Patient's cxr and clinical exam c/w pulmonary edema. He is stable in room air fortunately. Ideally we provide diuresis but, in light of #1 and need for optimal brain perfusion, defer on diuretic therapy today. Depending on clinical status tomorrow consider lasix then. HFpEF likely due to uncontrolled a.fib. Can't exclude poor diet at [facility], etc. 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 statin. ultimately resume aspirin. need for intervention of right ICA stenosis by Interventional Neuro at tertiary care? need to d/w neurology. (7) HTN (hypertension): Plan: HOLD HCTZ HOLD BB allow permissive HTN due to CVA (8) LVH (left ventricular hypertrophy): Plan: severe on echo will need beta sandhya resumed when able (9) Valvular heart disease: Plan: moderate moderate TR mild-mod MR medical management (10) Prediabetes: Plan: a1c 6% diet control for now check BSGs add novolog if needed (11) DVT prophylaxis: Plan: SCDS only for now will likely not be able to use any chemical DVT proph during this stay due to hemorrhage Plan Dispo-needs PT/OT evals and see if [facility] can take him back vs rehab? WIll need to d/w [facility] Admission and Anticipated Discharge Date Admission Date: June 16, 2022 Subjective No headache, doesn't feel too weak. No CP or SOB Tele with Afib, rate controlled Physical Exam Constitutional: WD/WN, vitals as above Eyes: PERRL, conjunctivae normal, anicteric sclerae ENMT: external ear and nose normal, oropharynx normal Respiratory: normal respiratory effort, lungs clear to auscultation Cardiovascular: Rate/Rhythm: regular rate and + irregularly irregular Heart Sounds: no murmur Extremities: no edema Gastrointestinal (Abdomen): normal bowel sounds, soft, nontender, no hepatosplenomegaly Neurologic: CN's II-XI intact bilaterally, moves all extremities and + focal motor deficit (LUE and LLE 4/5 strength,worse distally); not confused Results & Data Results & Data Vital Signs (Past 12 Hours) Vital Signs Temp Pulse Pulse Resp BP Pulse Ox O2 Del Method 06/19/22 08:06 36.4 C L 89 17 154/84 H 98 Room Air 06/19/22 06:19 90 06/19/22 03:02 36.8 C 82 18 149/84 H 98 Room Air Laboratory Results CBC, BMP reviewed PG Care Time/CCT Total # of Minutes Spent Total Time Spent with Patient: Total time spent is greater than 50% in coordination of care (as documented) at patient's floor/unit and/or counseling patient: Coding Level of Care Code 31948 SUB INP/OBS CARE 3/50MIN Diagnoses Acute right MCA stroke I63.511 Cerebrovascular accident (CVA) with intracranial hemorrhage I61.9 Atrial fibrillation with rapid ventricular response I48.91 Acute metabolic encephalopathy G93.41 Acute heart failure with preserved ejection fraction (HFpEF) I50.31 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
--- NOTE | 2022-06-19 14:31 | Fluoroscopy Report ---
VIDEO SWALLOW STUDY CLINICAL HISTORY: Aspiration. COMPARISON STUDY: No priors. Fluoroscopy time: 4.4 minutes. Ka,r: 53.17 mGy FINDINGS: Fluoroscopic guidance provided to the Department of speech pathology in performing a video swallow study. The patient consumed barium impregnated pudding, cracker with paste, thickened liquids , and thin barium with a swallowing mechanism was observed in real-time. No penetration or aspiration was seen with any of the sample textures. IMPRESSION: No penetration or aspiration was seen with any of the sample textures. See dedicated [facility] pathology report for detailed findings and recommendations. Dictated: 06/19/2022 12:01 PM Transcribed: 06/19/2022 2:20 PM Tejinder [id number] [email or web address] [id number] Electronically signed by: John Perla M.D. 06/19/2022 2:30 PM
[2022-06-19] MEDS: DIGOXIN 0.125 MG TAB PO SCH (15:45)
[2022-06-19] MEDS: ATORVASTATIN 40 MG TAB PO SCH (20:18)
--- NOTE | 2022-06-20 08:16 | CT Scan Report ---
CT SCAN OF THE BRAIN WITHOUT IV CONTRAST CLINICAL HISTORY: Follow-up stroke. COMPARISON STUDY: CT of the brain dated 06/18/2022. MRI of the brain dated 06/16/2022. TECHNIQUE: Unenhanced axial CT scan of the brain is performed from the vertex to the skull base. A do se lowering technique was utilized adhering to the principles of ALARA. The patient was scanned twice due to motion artifact. CT DOSE: 1228.53 mGy.cm FINDINGS: Brain parenchyma: Again seen is a large evolving right MCA territory infarct, likely with tiny foci o f hemorrhage. There is associated edema with effacement of the overlying cortical sulci. No right to left midline shift is identified. There is age-related involutional change noting mild to moderate man bcortical and periventricular microangiopathic disease. Foci of left frontal and parietal encephaloma lacia are unchanged and consistent with remote infarcts. No extra-axial fluid collection is seen. Ventricles, sulci, cisterns: Prominent secondary to involutional change. Intracranial vasculature: There is atherosclerotic calcification of the cavernous carotid and vertebr al arteries. Calvarium: Unremarkable. Sinuses and mastoids: The paranasal sinuses are clear. The mastoid air cells are well pneumatized. Orbits: The bony orbits are grossly intact. IMPRESSION: 1. Again seen is a large evolving right MCA territory infarct, likely with tiny foci of associated he morrhage. This is similar in appearance to the 06/18/2022 examination. 2. There is no midline shift. ACT 112: Negative or not required by law. Electronically signed by: John Perla M.D. 06/20/2022 8:14 AM
[2022-06-20] MEDS: ASPIRIN 81 MG CHEW PO SCH (08:32)
[2022-06-20 12:17] LABS: Basophils # (auto) 0.02 K/uL (0-0.2); Basophils % (auto) 0.2 %; Eosinophils # (auto) 0.02 K/uL (0-0.50); Eosinophils % (auto) 0.2 %; Hematocrit (blood only) 40.5 % (42.0-52.0); Hemoglobin 14.2 g/dl (14.0-18.0); Immature Granulocytes # (auto) 0.03 K/uL (0.01-0.20); Immature Granulocytes % (auto) 0.3 %; Lymphocytes # (auto) 0.66 K/uL (1.2-3.4); Lymphocytes % (auto) 5.5 %; Mean Corpuscular Hemoglobin 31.1 pg (25.0-34.0); Mean Corpuscular Hgb Conc 35.1 g/dL (32.0-36.0); Mean Corpuscular Volume 88.6 fL (80.0-100.0); Mean Platelet Volume 11.5 fL (9.4-12.4); Neutrophils # (auto) 10.06 K/uL (1.40-6.50); Neutrophils % (auto) 83.8 %; Platelet Count 185 K/uL (130-400); RDW Standard Deviation 45.1 fL (36.4-46.3); Red Blood Count 4.57 M/uL (4.70-6.10); White Blood Count 11.99 K/ul (4.8-10.8)
[2022-06-20 12:27] LABS: BUN Creatinine Ratio 29.2 (10-20); Calcium 8.7 mg/dl (8.6-10.3); Creatinine Clr Calc Pharmacy 62.3 ml/min; Est GFR (African American) 85.6 ml/min; Est GFR (Non-African American) 73.8 ml/min; Potassium 4.1 mmol/L (3.5-5.1)
--- NOTE | 2022-06-20 13:54 | Neurology Progress Note ---
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 This morning CT of the head stable compared with study done 2 days ago. No midline shift. Patient has been clinically stable although continues to exhibit significant left hemineglect as well as a mild left hemiparesis. Also has visual neglect to the left. As described previously, he has a right M2 thrombus within the right MCA territory as well as bilateral intracranial ICA stenosis, right greater than left (75% on the right, 50% on the left). History of atrial fibrillation, had not been on an anticoagulant. Given the stability of hemorrhagic foci and cytotoxic edema, patient may resume daily low-dose aspirin therapy. Given the size of this patient's acute infarct, at this point in time, I would recommend holding off on starting anticoagulation with Eliquis for 2 weeks from the date of the infarct, therefore would anticipate starting Eliquis on or around July 01. Would like a follow-up noncontrast CT of the head completed in 10 days, prior to planned initiation of Eliquis. It may be worthwhile to get cardiology involved with his care again regarding management of his atrial fibrillation. In looking at previous records, Eliquis had not been on formulary in 2019. I am not sure if the formulary status of Eliquis is changed recently. If Eliquis is not covered, would need to recommend warfarin as an alternative treatment. Medical management recommended for the bilateral supraclinoid intracranial ICA stenosis. Discussed with hospitalist Admission and Anticipated Discharge Date Admission Date: June 16, 2022 Subjective Follow-up regarding stroke The patient continues to have difficulty with left-sided neglect and weakness. He has been working with physical therapy. No headache or dizziness. A follow- up CT of the head completed today reveals stability of the evolving right MCA territory infarct with associated tiny foci of hemorrhage and cytotoxic edema, no midline shift. I independently reviewed these images. No significant change compared with the previous CT of the head on June 18. Review of Systems Constitutional: no fever and no chills Eyes: + blind spots; no diplopia Neurologic: + unsteadiness, + localized weakness and + loss of sensation; no headache(s) Results & Data Vital Signs (Past 12 Hours) Vital Signs Temp Pulse Pulse Pulse Resp BP Pulse Ox 06/20/22 08:00 06/20/22 08:00 88 06/20/22 12:00 36.8 C 87 20 149/72 H 97 06/20/22 08:00 36.8 C 20 L 88 18 135/66 97 06/20/22 03:21 36 C L 80 18 144/80 H 96 O2 Del Method 06/20/22 08:00 Room Air 06/20/22 08:00 06/20/22 12:00 Room Air 06/20/22 08:00 Room Air 06/20/22 03:21 Room Air Laboratory Results WBC 11.99, hemoglobin 14.2, hematocrit 40.5, platelet count 185, sodium 136, potassium 4.1, BUN 28, creatinine 0.96, glucose 119, calcium 8.7, magnesium 2.[address] of the head is as described above, I independently reviewed these images. Exam (Neuro) Neurologic: Oriented to:: Person; negative Place or Time Attention: Span Intact; negative Concentration Intact Speech Fluency: Dysfluency Speech Aphasia: negative Aphasia Fund of Knowledge: Vocabulary Cranial Nerves: Normal III, IV, ; Abnorm II or VII (Flattening of the left nasolabial fold noted) Motor Strength: Hemiparesis (Mild) Laterality: Left Details: Continues to exhibit signs of left hemineglect PG Care Time/CCT Total # of Minutes Spent Total Time Spent with Patient: Total time spent is greater than 50% in coordination of care (as documented) at patient's floor/unit and/or counseling patient: Coding Level of Care Code 35121 SUB INP/OBS CARE 235MIN Diagnoses Cerebrovascular accident (CVA) with intracranial hemorrhage I61.9 Acute right MCA stroke I63.511 Left-sided neglect R41.4 Atrial fibrillation I48.91 Atrial fibrillation type: unspecified 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
[2022-06-20] MEDS ORDERED: ASPIRIN 81 MG ECTAB PO SCH (14:45)
[2022-06-20] MEDS: METOPROLOL TARTRATE 25 MG TAB PO SCH ×2 (14:49→19:37)
[2022-06-20] MEDS: DIGOXIN 0.125 MG TAB PO SCH (16:25)
[2022-06-20] MEDS: ATORVASTATIN 40 MG TAB PO SCH (19:38)
--- NOTE | 2022-06-20 20:10 | Hospitalist Progress Note ---
Date of Service June 20, 2022 Assessment & Plan (1) Acute right MCA stroke: Plan: Likely embolic due to permanent a.fib. Large MCA stroke [facility]-he stopped Coumadin a while ago as he did not like getting PT/INR draws He also has supraclinoid ICA stenosis (75% on right) thus this is also a possible culprit. With evidence of some mild hemorrhagic transformation on MRI brain. Repeat CT head on 06/18 and again 06/20 stable hemorrhage, with evolving infarct and some edema, no midline shift Has left sided weakness but is 4/[address] Mccallum's consultation and recs. -restart ASA 81mg po daily -plan to restart anticoagulation in 2 weeks-prefer Eliquis if available [facility] formulary so he doesn't have to have INR blood draws -should have CT head noncontrast in 10 days and with results reviewed prior to starting anticoagulation -Cont statin - given the severity of his ICA stenosis and other areas of stenosis increased lipitor from 20mg/day to 40mg/day. -Allow permissive HTN - hold HCTZ, but restart lower dose metoprolol 12.5mg po bid for uncontrolled Afib rates -PT, OT, speech evals-passed VFSS-needs easy to chew diet, thin liquids, aspiration precautions [facility] from [facility] to to determine if needs acute rehab vs [facility] (2) Cerebrovascular accident (CVA) with intracranial hemorrhage: Plan: as above (3) Atrial fibrillation with rapid ventricular response: Plan: initially held metoprolol from home for permissive HTN. Given dig load for better rate control - 250mcg IV q6h x 3 doses, then PO dig 0.125mg daily starting 06/18/22 afternoon. Dig level 0.9 Rates faster today restart metoprolol at lower dose of 12.5mg po bid to avoid hypotension but provide some rate control Deferring on anticoagulation due to ICH but would start Eliquis if [facility] will have available in 2 weeks (Coumadin would be the alternative) (4) Acute metabolic encephalopathy: Plan: 2nd to stroke.Seems to be improving supportive care. (5) Acute heart failure with preserved ejection fraction (HFpEF): Plan: Patient's cxr and clinical exam c/w pulmonary edema. He is stable in room air fortunately. HFpEF likely due to uncontrolled a.fib. 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 statin. - resume aspirin. -no need for intervention of right ICA stenosis by Interventional Neuro at [facility] as per my d/w Neurology -continue statin (7) HTN (hypertension): Plan: HOLD HCTZ restart metoprolol as above allow permissive HTN due to CVA (8) LVH (left ventricular hypertrophy): Plan: severe on echo resume beta sandhya (9) Valvular heart disease: Plan: moderate moderate TR mild-mod MR medical management (10) Prediabetes: Plan: a1c 6% diet control for now check BSGs add novolog if needed (11) DVT prophylaxis: Plan: SCDS only for now will likely not be able to use any chemical DVT proph during this stay due to hemorrhage Plan Dispo-PT/OT evals recommend rehab if [facility] cannot take him back at this level of debility. Medically stable for discharge likely tomorrow Admission and Anticipated Discharge Date Admission Date: June 16, 2022 Subjective Pt says he doesn't think/feel that anything is wrong wih him and asks how he would know if he has another stroke. Afib on tele with some rates 110s-130s. Denies headache. Worked with PT. Discussed case with Neuro Physical Exam Constitutional: WD/WN, vitals as above Respiratory: normal respiratory effort, lungs clear to auscultation Cardiovascular: Rate/Rhythm: + tachycardic and + irregularly irregular Heart Sounds: no murmur Extremities: no edema Gastrointestinal (Abdomen): normal bowel sounds, soft, nontender, no hepatosplenomegaly Neurologic: + focal motor deficit (LUE and LLE 4/5 strength,worse distally); not confused Results & Data Results & Data Vital Signs (Past 12 Hours) Vital Signs Temp Pulse Pulse Resp BP Pulse Ox O2 Del Method 06/20/22 19:32 36.9 C 86 18 142/84 H 96 Room Air 06/20/22 16:25 78 06/20/22 16:00 36.7 C 88 18 119/79 100 Room Air 06/20/22 12:00 36.8 C 87 20 149/72 H 97 Room Air Laboratory Results CBC, BMP, magnesium reviewed Diagnostic Findings CT head reviewed PG Care Time/CCT Total # of Minutes Spent Total Time Spent with Patient: Total time spent is greater than 50% in coordination of care (as documented) at patient's floor/unit and/or counseling patient: Coding Level of Care Code 01265 SUB INP/OBS CARE 3/50MIN Diagnoses Acute right MCA stroke I63.511 Cerebrovascular accident (CVA) with intracranial hemorrhage I61.9 Atrial fibrillation with rapid ventricular response I48.91 Acute metabolic encephalopathy G93.41 Acute heart failure with preserved ejection fraction (HFpEF) I50.31 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
[2022-06-21 06:51] LABS: Basophils # (auto) 0.02 K/uL (0-0.2); Basophils % (auto) 0.2 %; Eosinophils # (auto) 0.04 K/uL (0-0.50); Eosinophils % (auto) 0.4 %; Hematocrit (blood only) 41.2 % (42.0-52.0); Hemoglobin 14.3 g/dl (14.0-18.0); Immature Granulocytes # (auto) 0.03 K/uL (0.01-0.20); Immature Granulocytes % (auto) 0.3 %; Lymphocytes # (auto) 1.27 K/uL (1.2-3.4); Mean Corpuscular Hemoglobin 30.9 pg (25.0-34.0); Mean Corpuscular Hgb Conc 34.7 g/dL (32.0-36.0); Mean Platelet Volume 11.5 fL (9.4-12.4); Monocytes # (auto) 1.08 K/uL (0.11-0.59); Monocytes % (auto) 11.1 %; Platelet Count 210 K/uL (130-400); RDW Coefficient of Variation 14.1 % (11.5-14.5); RDW Standard Deviation 45.6 fL (36.4-46.3); Red Blood Count 4.63 M/uL (4.70-6.10); White Blood Count 9.74 K/ul (4.8-10.8)
[2022-06-21 07:32] LABS: Anion Gap 9 (3-11); BUN Creatinine Ratio 32.6 (10-20); Blood Urea Nitrogen 29 mg/dl (6-23); Calcium 8.8 mg/dl (8.6-10.3); Carbon Dioxide 22 mmol/L (21-32); Chloride 105 mmol/L (98-107); Creatinine Clr Calc Pharmacy 67.2 ml/min; Est GFR (African American) 92.9 ml/min; Est GFR (Non-African American) 80.2 ml/min; Glucose 93 mg/dl (70-99(Fasting)); Magnesium 2.3 mg/dl (1.7-2.4); Sodium 136 mmol/L (136-145)
[2022-06-21] MEDS ORDERED: ASPIRIN 81 MG ECTAB PO SCH (09:00)
[2022-06-21] MEDS: METOPROLOL TARTRATE 25 MG TAB PO SCH (09:15)
[2022-06-21 13:36] LABS: A calco-baum cmplx NotReported Not Detected (NotDetected); Bact fragilis Not Reported Not Detected (NotDetected); C auris Not Reported Not Detected (NotDetected); Calbicans Not Reported Not Detected (NotDetected); Candida glabrata Not Reported Not Detected (NotDetected); Candida krusei Not Reported Not Detected (NotDetected); Cneoformans/gatti Not Reported Not Detected (NotDetected); Cparapsilosis Not Reported Not Detected (NotDetected); Ctropicalis Not Reported Not Detected (NotDetected); E cloacae compx Not Reported Not Detected (NotDetected); Efaecalis Not Reported Not Detected (NotDetected); Efaecium Not Reported Not Detected (NotDetected); Enterobacterales Not Reported Not Detected (NotDetected); Escherichia coli Not Reported Not Detected (NotDetected); H influenzae Not Reported Not Detected (NotDetected); K aerogenes Not Reported Not Detected (NotDetected); Koxytoca Not Reported Not Detected (NotDetected); Kpneumoniae grp Not Reported Not Detected (NotDetected); Lmonocyt Not Reported Not Detected (NotDetected); N meningitidis Not Reported Not Detected (NotDetected); P aeruginosa Not Reported Not Detected (NotDetected); Proteus spp Not Reported Not Detected (NotDetected); Salmonella spp Not Reported Not Detected (NotDetected); Smarcescens Not Reported Not Detected (NotDetected); Staph lugdunensis Not Reported Not Detected (NotDetected); Staph spp. Not Reported Not Detected (NotDetected); Staphaureus Not Reported Not Detected (NotDetected); Staphepi Not Reported Not Detected (NotDetected); Stenmaltophilia Not Reported Not Detected (NotDetected); Strep agal(GrpB) Not Reported Not Detected (NotDetected); Strep pneum Not Reported Not Detected (NotDetected); Strep pyog (GrpA) Not Reported Not Detected (NotDetected); Strep spp Not Reported Not Detected (NotDetected)
--- NOTE | 2022-06-21 15:32 | Discharge Summary ---
Date of Service June 21, 2022 Admission HPI Per Admitting Provider Basil is an 82-year-old male with past medical history of A-fib not on anticoagulation, hyperlipidemia on atorvastatin, Last known normal around 7 AM, 5 hours before hospital admission. History of A- fib and aspirin without anticoagulation. At some point since then he was found fallen out of bed confused and with left-sided weakness and left-sided facial droop and dysarthria. No prior similar symptoms. Patient is confused and a poor historian, but improving gradually while in the ER. Denies bleeding problems, denies prior strokes. Endorses only medical history is A-fib, blood pressure, and cholesterol. He is not on a blood thinner. He reports he would want to be full code. At time of bedside visit history is somewhat limited by dysarthria and tangential thought process. He denies pain. Endorses he has had chronically diminished sensation in his left leg, is not sure if this is changed. Endorses that he feels weak on the left side, but does not notice this much unless he is paying attention to it. Denies chest pain, chest pressure, shortness of breath, difficulty breathing, lightheadedness, dizziness. Denies leg swelling. CTA-H/N/CT-H: IMPRESSION:1. An acute right MCA territory infarct due to an abrupt vessel cut off within a proximal right M2 segment.2. Additional areas of narrowing within the cerebral arteries as described above.3. The common carotid and cervical internal carotid arteries are patent. 4. 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 Mild interstitial pulmonary edema. 6. Mild mediastinal lymphadenopathy. This could be due to the emphysema. [address] follow-up recommended to ensure stability/resolution. Medical History: Reviewed Medications: Reviewed Surgical History: Reviewed Family history: Reviewed Allergies: Reviewed Social History: No tobacco/alcohol Code Status: Full code Principal Diagnosis Acute ischemic MCA CVA with hemorrhagic transformation Rapid atrial fibrillation Acute metabolic encephalopathy Discharge Exam Constitutional WD/WN, vitals as above Eyes PERRL, conjunctivae normal, anicteric sclerae ENMT external ear and nose normal, oropharynx normal Respiratory normal respiratory effort, lungs clear to auscultation Cardiovascular Rate/Rhythm: regular rate and + irregularly irregular Heart Sounds: no murmur Extremities: no edema Gastrointestinal (Abdomen) normal bowel sounds, soft, nontender, no hepatosplenomegaly Neurologic CN's II-XI intact bilaterally, moves all extremities and + focal motor deficit (LUE and LLE 4/5 strength,worse distally); not confused Discharge Data Allergies Allergy/AdvReac Type Severity Reaction Status Date / Time No Known Allergies Allergy Verified 01/21/20 20:42 Consultations 06/16/22 13:36 ED Decision to Admit Stat 06/17/22 10:53 Consult Neurology Routine Ordered Studies 06/16/22 12:02 CT angio head w con Stat CT angio neck with con Stat CT head/brain wo con Stat 06/16/22 17:03 MR brain wo con Routine 06/17/22 12:21 CT head/brain wo con Routine 06/18/22 08:[address] [CT head/brain wo con] Routine 06/19/22 11:00 FL video swallow Routine 06/20/22 08:00 CT head/brain wo con Routine ECHO Hospital Course (1) Acute right MCA stroke: Likely embolic due to permanent a.fib. Large MCA stroke Was not on anticoagulation at the assisted-he stopped Coumadin a while ago as he did not like getting PT/INR draws He also has supraclinoid ICA stenosis (75% on right) thus this is also a possible culprit. With evidence of some mild hemorrhagic transformation on MRI brain. Repeat CT head on 06/18 and again 06/20 stable hemorrhage, with evolving infarct and some edema, no midline shift Has left sided weakness but is 4/[address] Mccallum's consultation and recs. -restarted ASA 81mg po daily -plan to restart anticoagulation in 2 weeks-prefer Eliquis if available on assisted formulary so he doesn't have to have INR blood draws -should have CT head noncontrast in 10 days and with results reviewed prior to starting anticoagulation -Cont statin - given the severity of his ICA stenosis and other areas of stenosis increased lipitor from 20mg/day to 40mg/day. -Allow permissive HTN - hold HCTZ, but restart lower dose metoprolol 25mg po bid for uncontrolled Afib rates -PT, OT, speech evals-passed VFSS-needs easy to chew diet, thin liquids, aspiration precautions dc to acute rehab [facility] Good[facility] (2) Cerebrovascular accident (CVA) with intracranial hemorrhage: as above (3) Atrial fibrillation with rapid ventricular response: initially held metoprolol from home for permissive HTN. Given dig load for better rate control - 250mcg IV q6h x 3 doses, then PO dig 0.125mg daily starting 06/18/22 afternoon. Dig level 0.9 rates improved with restarting metoprolol continue metoprolol at lower dose of 25mg po bid to avoid hypotension but provide some rate control Deferring on anticoagulation due to ICH but would start Eliquis if assisted will have available in 2 weeks (Coumadin would be the alternative) (4) Acute metabolic encephalopathy: 2nd to stroke.Seems to be improving supportive care. (5) Acute heart failure with preserved ejection fraction (HFpEF): Patient's cxr and clinical exam c/w pulmonary edema. He is stable in room air fortunately. HFpEF likely due to uncontrolled a.fib. 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 statin. - resumed aspirin. -no need for intervention of right ICA stenosis by Interventional Neuro at tertiary care as per my d/w Neurology -continue statin (7) HTN (hypertension): HOLD HCTZ restart metoprolol as above allow permissive HTN due to CVA, restart HCTZ and increase metoprolol back to 50mg bid over next few days (8) LVH (left ventricular hypertrophy): severe on echo resumed beta sandhya (9) Valvular heart disease: moderate moderate TR mild-mod MR medical management (10) Prediabetes: a1c 6% diet control (11) DVT prophylaxis: SCDS only will likely not be able to use any chemical DVT proph during this stay due to hemorrhage Plan Dispo-PT/OT evals recommend rehab-dc to [facility] Total Time Total Time Spent Total Time Spent (In Minutes): 35 min Discharge Plan Discharge Items Patient Disposition: Transfer Inpatient Rehab Fac Reason For Visit: MCA CVA Discharge Diagnosis: Right MCA CVA with hemorrhagic conversion Condition on Discharge: Fair Activity: As commented below Lifting: Gradually increase as tolerated Bathing: No limitations Exercise/Sports: Gradually increase as tolerated Non-emergency contact: Primary Care Provider Call non-emergency contact if: you have any medication questions and your symptoms worsen Follow-up/Referrals: Wang ELIZONDO [Primary Care Provider] - Diet: Heart Healthy Addtl Attending Provider Instructions: Admitted for large right MCA ischemic CVA and ad tiny area of hemorrhagic conversion. Has permanent atrial fibrillation and was not on anticoagulation which is likely cause of stroke. Does have JOE supraclinoid ICA stenosis but not recommended for intervention on this as per NEURO. Was started on ASA 81mg daily for now and needs repeat CT head on /around June 30. If CT head shows resolution of hemorrhage, can start anticoagulation. Would recommend Eliquis as patient previously noncompliant with Coumadin due to need for INR checks. If Eliquis not available at assisted formulary, would need to restart Coumadin. Atrial fibrillation was rate controlled by adding digoxin. Metoprolol was initially held due to need for permissive hypertension, but hen was restarted at a lower dose. This can be increased back to usual dose of 50mg bid over the next few days. Pending Studies at Discharge: No Stand-Alone Forms: My [facility], Medications to Prevent Stroke Skilled Items Patient informed of condition?: Yes DNR: No Discharge Level of Care: Acute rehab Communicable Disease: No Discharge Prognosis: Improving Lines: None Urinary Catheter: No Medications and DC Order Prescriptions: New digoxin [Digitek] 125 mcg (0.125 mg) Tablet 0.125 mg PO DAILY@1600 Qty: 30 0RF atorvastatin 40 mg Tablet 40 mg PO HS Qty: 30 0RF Continued aspirin 81 mg Tablet,Chewable 81 mg PO DAILY Changed metoprolol tartrate 50 mg tablet 25 mg PO BID Qty: 60 0RF Discontinued atorvastatin 20 mg tablet 20 mg PO HS hydrochlorothiazide 12.5 mg Capsule 12.5 mg PO DAILY ibuprofen 600 mg Tablet 600 mg PO TID PRN (Reason: Pain) Discharge Orders: Discharge Order (Routine); Ordered 06/21/22 Ordered By: Malina Rock/Other Patient Handouts: Prediabetes Admission Data Admit Date/Time: 06/16/22 14:32 Attending Provider: Malina Avelar Admit Provider: Crispin Giron Primary Care Provider: Wang ELIZONDO Other Providers: Crispin Giron ; Juan Mccallum ; [facility] Coding Level of Care Code 43334 INP/OBS DISCH >30 MIN Diagnoses Acute right MCA stroke I63.511 Cerebrovascular accident (CVA) with intracranial hemorrhage I61.9 Atrial fibrillation with rapid ventricular response I48.91 Acute metabolic encephalopathy G93.41 Acute heart failure with preserved ejection fraction (HFpEF) I50.31 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
== END 2022-06-21 16:23 | DRG 64 ==
LOC: ED 11:34 → 2S 14:32 → SUATTDRO 14:32 → 2S 15:53

== ENCOUNTER 2022-06-27 16:47 | Observation (INO) ==
[2022-06-27] MEDS ORDERED: SODIUM CHLORIDE 0.9% 1000ML 1,000 ML IV STA (17:27)
--- NOTE | 2022-06-27 17:44 | Emergency Department Note ---
Impression & Plan Ischemic foot, Atrial fibrillation, Arterial occlusive disease, History of CVA with residual deficit ED Provider Note NAME: MARISA [id number] MAHKOVEC AGE: 82 SEX: M ARRIVES VIA: Ambulance INFORMANT: Patient ED PROVIDER(S): Medardo Santiago MD CHIEF COMPLAINT: Pulseless left foot, referred. 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 Per records the patient did have an venous ultrasound on 06/25 that was negative for DVT but did comment on "severe arterial stenosis" though this was not a complete arterial study. The patient is not currently on anticoagulation for his history of A-fib due to recent CVA on 06/16 of the right MCA territory with tiny focus of hemorrhagic conversion that remained stable on repeat imaging. The patient was resumed on daily baby aspirin. Of note, the patient is a poor historian and reports he was sent to the emergency department for evaluation of his stroke. The guards at the bedside report that he has had confusion since his hospitalization which has been attributed to his stroke and hospital delirium. On arrival the patient is no acute distress, afebrile stable vital signs. His left lower extremity appears dusky from the left lower leg to the foot with ~3 seconds capillary refill. DP AT and PT pulses are unable to be detected by bedside Doppler. His popliteal artery is detectable biphasic. Given the patient's physical exam concerning for acute on chronic occlusive arterial disease I did review the case with vascular surgery here, Dr. Torres. Given the patient's recent CVA with hemorrhagic conversion recommends transfer to tertiary care center for further management and heparinization would be recommended if neurology/neurosurgery was in agreement. EKG demonstrates atrial fibrillation without overt acute ischemia. Chest x-ray negative for acute cardiopulmonary process. WBC 15.5K nonspecific. H/H similar to prior range values. Platelets within normal limits. Chemistry without metabolic acidosis. BUN/Crea> 30 consistent with the patient's clinically dry appearance. LFTs are elevated from recent with total bilirubin 2.2, direct Jose 0.8, AST and ALT 250 and 142, respective ly. Nonspecific. High-sensitivity troponin 43.2 mildly elevated, nonspecific. Lipase within normal limits. COVID-19 RNA, ELVA test was negative. CT of the head was performed and demonstrates stable expected evolutionary findings and no new bleeding. Arterial duplex was completed and demonstrates severe arterial disease with occlusion of the mid to distal popliteal artery with dampened signal and monophasic flow distally. [facility] was subsequently contacted and case was discussed with vascular surgery, Dr. Rod who feels that there is no additional treatment they can provide compared to what could be offered here. The exception would be if heparin is to be recommended then transfer would be considered as the patient will require frequent neuro checks and neurosurgery availability for risk rebleed. I then discussed the case with the medicine hospitalist, Dr. Zepeda. She agreed to except the patient if, upon discussion and agreement with neurology that heparinization can be started. I then reviewed the case with Dr. Efrain Mckee, [facility] neurology, who agrees that low-dose heparinization without bolus can be initiated with frequent neurochecks as this is a protocol they often will initi ate under circumstances where ischemia and hemorrhage must be balanced. The patient was subsequently accepted to [facility] by Dr. aSntos for further management however there are no beds available until tomorrow at the earliest. I then also discussed the case with our neurology on-call, Dr. Hernandez, who similarly agrees with [facility] neurology recommendations that heparinization can be started given need for treatment of arterial occlusive disease and the patient's recent CVA with hemorrhagic conversion over 10 days ago remained stable. Of note, CTA of the abdomen with runoff also ordered for further characterization of arterial disease as well as the patient's transaminitis. No hepatobiliary pathology identified. Otherwise further characterization of the patient's severe occlusive arterial disease is seen. Given no beds available at [facility] until tomorrow patient was referred for admission here until bed is available for transfer. Case was discussed with Dr. Kwan, [facility] hospitalist, who will evaluate the patient for admission. Appreciate consultations and recommendations. Of note, the patient's ability to fully consent is in question as he is not able to sufficiently explain to this provider his current acute medical condition nor risks/benefits of care. Triage Nursing notes reviewed and agree them. Prior/outside medical records reviewed Vital Signs: reviewed Differential diagnosis: PAD, arterial occlusion, DVT, musculoskeletal, infection, joint effusion, trauma, lymphedema, idiopathic, CHF, as well as other pathologies. ER treatment provided: See below. Diagnostics interpreted by me: ECG: Atrial fibrillation, 92 bpm, no ectopy, ST and T wave abnormality, no overt ST elevation, QTc 435, QRS 88. Cardiac Monitoring: An order for continuous cardiac monitoring was placed and demonstrated Atrial fibrillation, 92 bpm, no ectopy. Laboratory studies: See below Imaging studies: See below Consultation(s): Dr. Torres, [facility] PS vascular surgery Dr. Rod, [facility] vascular surgery Dr. Santos, [facility] IM hospitalist Dr. Efrain Mckee, [facility] neurology Dr. Hernandez, [facility] Dr. 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 Per records the patient did have an venous ultrasound on 06/25 that was negative for DVT but did comment on "severe arterial stenosis" though this was not a complete arterial study. The patient is not currently on anticoagulation for his history of A-fib due to recent CVA on 06/16 of the right MCA territory with tiny focus of hemorrhagic conversion that remained stable on repeat imaging. The patient was resumed on daily baby aspirin. Of note, the patient is a poor historian and reports he was sent to the emergency department for evaluation of his stroke. The guards at the bedside report that he has had confusion since his hospitalization which has been attributed to his stroke and hospital delirium. ROS: See above HPI for pertinent positives & negatives. A total of 10 systems reviewed and were otherwise negative. VITALS:See Below PHYSICAL EXAMINATION: GENERAL: Awake, alert, chronically ill-appearing, in no distress HENT: Normocephalic, atraumatic. Oropharynx with dry mucous membranes and otherwise unremarkable. EYES: Normal conjunctiva. Sclera non-icteric. NECK: Supple. No nuchal rigidity. FROM. No JVD. RESPIRATORY: Clear to auscultation. CARDIAC: Regular rate, irreghular rhythm. Extremities warm and well perfused. Pulses equal. ABDOMEN: Soft, non-distended. No tenderness to palpation. No rebound or guarding. No masses. RECTAL: Deferred. MUSCULOSKELETAL: Chest examination reveals no tenderness. The back is symmetrical on inspection without obvious abnormality. There is no CVA tenderness to palpation. No joint edema. LOWER EXTREMITIES: Left lower extremity appears dusky from the left lower leg to the foot with ~3 seconds capillary refill. DP, AT and PT pulses are unable to be detected by bedside Doppler. His left popliteal artery is detectable with biphasic doppler signal. The patient's right pedal pulses including PT, AT and DP pulses are all detectable with biphasic doppler signal. NEURO: Alert to self and place. Confused to situation. 4/5 strength of left up per and left lower extremity. SKIN: No rash or jaundice noted. ED COURSE: Critical Care: I have personally spent greater than 135 minutes of critical care time in the direct management of this patient. This includes bedside care, interpretation of diagnostic studies, and testing, discussion with consultants, patient, and family members, and other required patient management activities. This 135 minutes is in excess of all separately billable procedures. Medardo Santiago MD Past Med/Surg History Medical History Aortic valve disorder Atrial fibrillation Atrial fibrillation and flutter Atrial fibrillation with rapid ventricular response Elevated d-dimer Elevated troponin Hypertension Hypoxia Mitral regurgitation Other nonrheumatic aortic valve disorders PAD (peripheral artery disease) Renal insufficiency Tricuspid regurgitation Social History Smoking Status: Former smoker Tobacco Type: Cigarettes Second Hand Exposure: No; Do You Dip or Chew Tobacco: No; Hx Alcohol Use: No Hx Substance Use: No Preferred Language: Sri [place]ankan Communication Ability: Impaired Car Sander Required: No Beliefs That Will Affect Care: None Current Living Situation: Other Current Living Situation Comment: [facility] Feels Safe at Home: Yes Assistive Devices: None Allergies Allergies Allergy/AdvReac Type Severity Reaction Status Date / Time No Known Allergies Allergy Verified 06/27/22 17:42 Home Meds Home Medications Medication Instructions Recorded Confirmed aspirin 81 mg chewable tablet 81 mg PO DAILY 01/21/20 06/27/22 acetaminophen 325 mg tablet 650 mg PO Q4H PRN Pain 06/27/22 06/27/22 (Tylenol) atorvastatin 20 mg tablet 20 mg PO HS 06/27/22 06/27/22 bisacodyl 10 mg rectal suppository 10 mg MO DAILY PRN Constipation 06/27/22 06/27/22 dextrose 40 % oral gel (Glucose 1 ea PO DIRECTED PRN 06/27/22 06/27/22 Gel) Hypoglycemia magnesium hydroxide 400 mg/5 mL 30 ml PO DAILY PRN Constipation 06/27/22 06/27/22 oral suspension (Milk of Magnesia) metoprolol tartrate 50 mg tablet 25 mg PO Q12H 06/27/22 06/27/22 ondansetron 4 mg disintegrating 4 mg PO Q4H PRN NAUSEA/VOMITING 06/27/22 06/27/22 tablet polyethylene glycol 3350 17 17 g PO QDL PRN Constipation 06/27/22 06/27/22 gram/dose oral powder (Miralax) sennosides 8.6 mg-docusate sodium 1 tab-cap PO QDL PRN Constipation 06/27/22 06/27/22 50 mg tablet (Senna Plus) sodium phosphates 19 gram-7 118 ml MO DAILY PRN Constipation 06/27/22 06/27/22 gram/118 mL enema (Fleet Enema) Previous Rx's Medication Instructions Recorded digoxin 125 mcg (0.125 mg) tablet 0.125 mg PO DAILY@1600 #30 tabs 06/21/22 (Digitek) Results & Data (ED) Vital Signs Vital Signs - 24 hr 06/27/22 16:36 06/27/22 16:36 06/27/22 17:34 Temperature 36.6 C Temperature Source Axillary Pulse Rate 95 H 89 Pulse Rate [Apical] 95 H Pulse Rhythm [Apical] Pulse Strength [Apical] Respiratory Rate 16 18 Respiratory Effort / Characteristics Respiratory Depth Blood Pressure 150/80 H Blood Pressure [Left Arm] 150/80 H Blood Pressure Mean 103 Blood Pressure Mean [Left Arm] 103 Pulse Oximetry 95 95 Oxygen Delivery Method Room Air Sepsis Recent Fever Within 48 Hours No Sepsis New/Unexplained Change in Mental Status N/A Sepsis Action Taken by Nursing No Action Required 06/27/22 17:27 06/27/22 20:37 06/27/22 23:06 Temperature Temperature Source Pulse Rate 83 Pulse Rate [Apical] 92 H Pulse Rhythm [Apical] Regular Pulse Strength [Apical] Normal Respiratory Rate 16 Respiratory Effort / Characteristics Non-Labored Spontaneous Respiratory Depth Normal Blood Pressure Blood Pressure [Left Arm] 131/87 Blood Pressure Mean Blood Pressure Mean [Left Arm] 101 Pulse Oximetry 90 93 Oxygen Delivery Method Room Air Room Air Sepsis Recent Fever Within 48 Hours Sepsis New/Unexplained Change in Mental Status Sepsis Action Taken by Nursing Laboratory Data Attestation: I reviewed the patient's lab results. 06/27/22 17:35 06/27/22 17:35 Lab Results 06/27/22 06/27/22 06/27/22 Range/Units 17:35 17:35 17:35 WBC 15.53 H (4.8-10.8) K/ul RBC 4.48 L (4.70-6.10) M/uL Hgb 13.8 L (14.0-18.0) g/dl Hct 39.3 L (42.0-52.0) % MCV 87.7 (80.0-100.0) fL MCH 30.8 (25.0-34.0) pg MCHC 35.1 (32.0-36.0) g/dL RDW Std Deviation 44.4 (36.4-46.3) fL RDW Coeff of Gloria 13.9 (11.5-14.5) % Plt Count 373 (130-400) K/uL MPV 10.7 (9.4-12.4) fL Immature Gran % (Auto) 0.7 % Neut % (Auto) 81.3 % Lymph % (Auto) 8.6 % Smith % (Auto) 8.1 % Eos % (Auto) 1.0 % Baso % (Auto) 0.3 % Neut # (Auto) 12.63 H (1.40-6.50) K/uL Lymph # (Auto) 1.33 (1.2-3.4) K/uL Smith # (Auto) 1.26 H (0.11-0.59) K/uL Eos # (Auto) 0.16 (0-0.50) K/uL Baso # (Auto) 0.04 (0-0.2) K/uL Immature Gran # (Auto) 0.11 (0.01-0.20) K/uL PT 13.7 H (9.0-12.0) Seconds INR 1.3 H (0.9-1.1) APTT 28.4 (21.0-31.0) Seconds PTT Ratio 1.0 Sodium 136 (136-145) mmol/L Potassium 3.9 (3.5-5.1) mmol/L Chloride 102 (98-107) mmol/L Carbon Dioxide 24 (21-32) mmol/L Anion Gap 10 (3-11) BUN 40 H (6-23) mg/dl Creatinine 1.07 (0.6-1.4) mg/dl Est Cr Clr Drug Dosing 63.0 ml/min Est GFR ( Amer) 75.1 ml/min Est GFR (Non-Af Amer) 64.8 ml/min BUN/Creatinine Ratio 37.4 H (10-20) Glucose 120 H (70-99(Fasting)) mg/dl Calcium 8.7 (8.6-10.3) mg/dl Total Bilirubin 2.2 H (0.2-1.0) mg/dl Direct Bilirubin 0.8 H (0-0.2) mg/dl AST 252 H (13-39) U/L ALT 142 H (7-52) U/L Alkaline Phosphatase 110 H (34-104) U/L Troponin I High Sens 43.2 H (0-20) pg/ml Total Protein 6.8 (6.0-8.3) gm/dl Albumin 3.3 L (3.4-5.0) gm/dl Globulin 3.5 (2.5-4.0) gm/dl Albumin/Globulin Ratio 0.9 (0.9-2) Lipase 17 (11-82) U/L SARS-CoV-2, RNA, NAAT (NEGATIVE) 06/27/22 Range/Units 17:37 WBC (4.8-10.8) K/ul RBC (4.70-6.10) M/uL Hgb (14.0-18.0) g/dl Hct (42.0-52.0) % MCV (80.0-100.0) fL MCH (25.0-34.0) pg MCHC (32.0-36.0) g/dL RDW Std Deviation (36.4-46.3) fL RDW Coeff of Gloria (11.5-14.5) % Plt Count (130-400) K/uL MPV (9.4-12.4) fL Immature Gran % (Auto) % Neut % (Auto) % Lymph % (Auto) % Smith % (Auto) % Eos % (Auto) % Baso % (Auto) % Neut # (Auto) (1.40-6.50) K/uL Lymph # (Auto) (1.2-3.4) K/uL Smith # (Auto) (0.11-0.59) K/uL Eos # (Auto) (0-0.50) K/uL Baso # (Auto) (0-0.2) K/uL Immature Gran # (Auto) (0.01-0.20) K/uL PT (9.0-12.0) Seconds INR (0.9-1.1) APTT (21.0-31.0) Seconds PTT Ratio Sodium (136-145) mmol/L Potassium (3.5-5.1) mmol/L Chloride (98-107) mmol/L Carbon Dioxide (21-32) mmol/L Anion Gap (3-11) BUN (6-23) mg/dl Creatinine (0.6-1.4) mg/dl Est Cr Clr Drug Dosing ml/min Est GFR ( Amer) ml/min Est GFR (Non-Af Amer) ml/min BUN/Creatinine Ratio (10-20) Glucose (70-99(Fasting)) mg/dl Calcium (8.6-10.3) mg/dl Total Bilirubin (0.2-1.0) mg/dl Direct Bilirubin (0-0.2) mg/dl AST (13-39) U/L ALT (7-52) U/L Alkaline Phosphatase (34-104) U/L Troponin I High Sens (0-20) pg/ml Total Protein (6.0-8.3) gm/dl Albumin (3.4-5.0) gm/dl Globulin (2.5-4.0) gm/dl Albumin/Globulin Ratio (0.9-2) Lipase (11-82) U/L SARS-CoV-2, RNA, NAAT NEGATIVE (NEGATIVE) Administered Medications Sodium Chloride (Nss 1000ml) 1,000 mls @ 125 mls/hr IV .Q8H ASAEL Stop: 07/27/22 21:59 Last Infusion: 06/27/22 23:28 Dose: 0 mls/hr Documented By: Admin: 06/27/22 22:42 Dose: 125 mls/hr Documented By: ETHAN Heparin Sodium/Dextrose (Heparin Sodium/Dextrose) 25,000 units in 500 mls @ 20 mls/hr IV .Q24H ASAEL; Protocol Stop: 07/27/22 22:44 Last Admin: 06/27/22 23:27 Dose: 1,000 units/hr, 20 mls/hr Documented By: Co-signed By: CLEO Discontinued Medications Heparin Sodium/Dextrose (Heparin Iv Adult Wt-Based Low-Dose *No* Bolus Protocol) 1 each IV ONE ONE; Protocol Stop: 06/27/22 22:43 Last Admin: 06/27/22 23:28 Dose: 1 each Documented By: Sodium Chloride (Nss 1000ml) 1,000 mls @ 999 mls/hr IV .Q1H1M STA Stop: 06/27/22 18:27 Last Infusion: 06/27/22 19:48 Dose: 0 mls/hr Documented By: Admin: 06/27/22 18:42 Dose: 999 mls/hr Documented By: LUZMA Ioversol (Optiray 320 500ml) 113 ml IV ONCE ONE Stop: 06/27/22 21:22 Last Admin: 06/27/22 21:21 Dose: 113 ml Documented By: SARA Imaging Data Radiologist's Impression: Chest X-Ray 06/27/22 17:27 XR chest 1V portable CLINICAL HISTORY: pad TECHNIQUE: Single frontal radiograph of the chest was obtained. Comparison: Comparison is made to chest radiograph 06/16/2022 FINDINGS: No lines and tubes are seen. Cardiomegaly is noted. The aortic arch is calcified. The lungs are clear. No evidence of pleural effusion or pneumothorax. IMPRESSION: Previously noted pulmonary edema has resolved, stable cardiomegaly is seen. No acute abnormalities. ACT 112: Negative or not required by law. Electronically signed by: Niko Robison M.D. 06/27/2022 6:04 PM Duplex Scan Lower Extremity Artery 06/27/22 17:27 LEFT LOWER EXTREMITY ARTERIAL DOPPLER ULTRASOUND CLINICAL HISTORY: Peripheral arterial disease, pulseless foot. COMPARISON STUDY: No previous studies for comparison. TECHNIQUE: Color and duplex Doppler sonography of the arterial system of the left lower extremity was performed. FINDINGS: Extensive atherosclerotic plaque within the left lower extremity is noted. There is triphasic flow within left common femoral artery. No elevated velocities are noted. Trace flow within the superficial femoral artery is noted. This suggests age-indeterminate severe stenosis versus short segment occlusion with distal reconstitution. There is monophasic flow within the left popliteal artery however the waveform is abnormal with increased diastolic flow. The mid to distal left popliteal artery appears occluded. There is significantly dampened, monophasic flow within the left posterior tibial, anterior tibial, peroneal and dorsalis pedis vessels. IMPRESSION: 1. Extensive atherosclerotic plaque within the left lower extremity with markedly abnormal waveforms throughout the left lower extremity. If acute symptoms, Vascular surgery consultation is recommended. 2. Age indeterminate occlusion versus severe stenosis within the left superficial femoral artery. 3. Suspected occlusion of the mid to distal left popliteal artery with partial reconstitution. Monophasic waveforms throughout the left calf vessels. ACT 112: Negative or not required by law. Electronically signed by: Patrick Vasques M.D. 06/27/2022 8:[address] 06/27/22 17:29 CT head/brain wo con CLINICAL HISTORY: h/o cva hemorrhagic conv, re-eval Technique: Contiguous axial CT images of the head were acquired from the base of the skull to the vertex without intravenous contrast administration. Images were viewed in brain, subdural and bone windows. Automated dose lowering techniques and/or adjustment according to patient size were utilized for this exam. 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 Previously noted foci of hemorrhage are less conspicuous likely due to evolutionary change. No new infarct or hemorrhage is seen. Old foci of encephalomalacia are seen in the left frontal and parietal lobes compatible with remote infarcts. Imaged portions of the paranasal sinuses and mastoid air cells are clear. The orbits appear normal. There are no acute fractures of the calvaria or scalp swelling. Impression: Expected evolutionary changes without evidence of new hemorrhage. No midline shift. ACT 112: Negative or not required by law. Electronically signed by: Niko Robison M.D. 06/27/2022 6:02 PM Aorta w/Runoff CTA 06/27/22 20:18 Exam(s): CTA RUNOFF (A/P + Patel Lower Ext) IV Amt: 113ml EXAM: CT Abdomen and Pelvis With Runoff to the Lower Extremities With Intravenous Contrast CLINICAL HISTORY: Reason for exam: ischemic LLE, Transaminitis (Venous phase also). TECHNIQUE: Axial computed tomographic images of the abdomen, pelvis and lower extremities with intravenous contrast. CTDI is 67 mGy and DLP is 2289.08 mGy-cm. Automated exposure control was utilized for the study. A dose lowering technique was utilized adhering to the principles of ALARA. COMPARISON: None FINDINGS: VASCULATURE: Aorta: Atherosclerotic changes of the vasculature. No abdominal aortic aneurysm or dissection. Celiac trunk and mesenteric arteries: No acute findings. No occlusion or significant stenosis. Renal arteries: No acute findings. No occlusion or significant stenosis. Right iliac arteries: No acute findings. No occlusion or significant stenosis. Right femoral/popliteal arteries: Occluded right popliteal artery. Mild stenoses in the right superficial femoral artery. Right calf/foot arteries: Some weak reconstitution of flow is seen in the right calf arteries. Occlusion of the distal right anterior tibial artery and peroneal artery. Left iliac arteries: No acute findings. No occlusion or significant stenosis. Left femoral/popliteal arteries: Severe stenosis in the left common femoral artery. Occluded left superficial femoral artery and popliteal artery. Left calf/foot arteries: Some reconstitution of flow in the left calf arteries, but the left anterior tibia artery and posterior tibial artery are mostly occluded. Patent left peroneal artery. Lung bases: Lower lung atelectasis. Heart: Cardiomegaly. Coronary artery and aortic valve calcifications. ABDOMEN: Liver: Unremarkable. No mass. Gallbladder and bile ducts: Unremarkable. No calcified stones. No ductal dilation. Pancreas: Unremarkable. No ductal dilation. No mass. Spleen: Unremarkable. No splenomegaly. Adrenals: Unremarkable. No mass. Kidneys and ureters: Mild bilateral hydroureteronephrosis without obstructing stone identified. Findings may be secondary to significantly distended bladder. Bilateral renal cysts. Stomach and bowel: Diverticulosis without evidence of diverticulitis. No small bowel obstruction. Evaluation of the stomach is limited by underdistention. PELVIS: Appendix: Prior appendectomy. Bladder: Significantly distended bladder. No significant bladder wall thickening or stone. Reproductive: Unremarkable as visualized. ABDOMEN, PELVIS and LOWER EXTREMITIES: Intraperitoneal space: Unremarkable. No significant fluid collection. No free air. Bones/joints: Degenerative changes of the spine. No acute fracture. No dislocation. Soft tissues: Mild soft tissue swelling of the left foot, ankle, and left lower leg. Calcifications along the right gluteus medius muscle. Lymph nodes: Unremarkable. No enlarged lymph nodes. IMPRESSION: 1. Occluded right popliteal artery. 2. Some weak reconstitution of flow is seen in the right calf arteries. Occlusion of the distal right anterior tibial artery and peroneal artery. 3. Severe stenosis in the left common femoral artery. 4. Occluded left superficial femoral artery and popliteal artery. 5. Some reconstitution of flow in the left calf arteries, but the left anterior tibia artery and posterior tibial artery are mostly occluded. 6. Mild bilateral hydroureteronephrosis without obstructing stone identified. Findings may be secondary to significantly distended bladder. Electronically signed by: Alejandra Hanson M.D. 06/27/22 22:04 PM Discharge Plan Visit Data Chief Complaint: Foot Injury/Pain Stated Complaint: BLUE FOOT, NO PULSE ED Provider: Medardo Santiago Discharge Problem: Ischemic foot, Atrial fibrillation, Arterial occlusive disease, History of CVA with residual deficit Forms Stand Alone Forms: My [facility] [place] [facility] Prescriptions Prescriptions: No Action aspirin 81 mg Tablet,Chewable 81 mg PO DAILY digoxin [Digitek] 125 mcg (0.125 mg) Tablet 0.125 mg PO DAILY@1600 Qty: 30 0RF acetaminophen [Tylenol] 325 mg Tablet 650 mg PO Q4H PRN (Reason: Pain) atorvastatin 20 mg Tablet 20 mg PO HS sennosides-docusate sodium [Senna Plus] 8.6-50 mg Tablet 1 tab-cap PO QDL PRN (Reason: Constipation) dextrose [Glucose Gel] 40 % Gel 1 ea PO DIRECTED PRN (Reason: Hypoglycemia) Rx Instructions: 15 GRAM/TUBE, NEEDED. magnesium hydroxide [Milk of Magnesia] 400 mg/5 mL Suspension 30 ml PO DAILY PRN (Reason: Constipation) bisacodyl 10 mg Suppository 10 mg MO DAILY PRN (Reason: Constipation) Fleet Enema 19-7 gram/118 mL Enema 118 ml MO DAILY PRN (Reason: Constipation) polyethylene glycol 3350 [Miralax] 17 gram/dose Powder 17 g PO QDL PRN (Reason: Constipation) ondansetron [Zofran ODT] 4 mg Tablet,Disintegrating 4 mg PO Q4H PRN (Reason: NAUSEA/VOMITING) metoprolol tartrate 50 mg tablet 25 mg PO Q12H Referrals Referrals: Malina Avelar MD [Hospitalist] -
--- NOTE | 2022-06-27 18:04 | CT Scan Report ---
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 Images were viewed in brain, subdural and bone windo ws. Automated dose lowering techniques and/or adjustment according to patient size were utilized for this exam. 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 Previous ly noted foci of hemorrhage are less conspicuous likely due to evolutionary change. No new infarct or hemorrhage is seen. Old foci of encephalomalacia are seen in the left frontal and parietal lobes com patible with remote infarcts. Imaged portions of the paranasal sinuses and mastoid air cells are clear. The orbits appear normal. There are no acute fractures of the calvaria or scalp swelling. Impression: Expected evolutionary changes without evidence of new hemorrhage. No midline shift. ACT 112: Negative or not required by law. Electronically signed by: Niko Robison M.D. 06/27/2022 6:02 PM
--- NOTE | 2022-06-27 18:05 | XRay Report ---
XR chest 1V portable CLINICAL HISTORY: pad TECHNIQUE: Single frontal radiograph of the chest was obtained. Comparison: Comparison is made to chest radiograph 06/16/2022 FINDINGS: No lines and tubes are seen. Cardiomegaly is noted. The aortic arch is calcified. The lungs are clear . No evidence of pleural effusion or pneumothorax. IMPRESSION: Previously noted pulmonary edema has resolved, stable cardiomegaly is seen. No acute abnormalities. ACT 112: Negative or not required by law. Electronically signed by: Niko Robison M.D. 06/27/2022 6:04 PM
[2022-06-27 18:31] LABS: Basophils # (auto) 0.04 K/uL (0-0.2); Basophils % (auto) 0.3 %; Eosinophils # (auto) 0.16 K/uL (0-0.50); Hematocrit (blood only) 39.3 % (42.0-52.0); Hemoglobin 13.8 g/dl (14.0-18.0); Immature Granulocytes # (auto) 0.11 K/uL (0.01-0.20); Immature Granulocytes % (auto) 0.7 %; Lymphocytes # (auto) 1.33 K/uL (1.2-3.4); Lymphocytes % (auto) 8.6 %; Mean Corpuscular Hemoglobin 30.8 pg (25.0-34.0); Mean Corpuscular Hgb Conc 35.1 g/dL (32.0-36.0); Mean Corpuscular Volume 87.7 fL (80.0-100.0); Mean Platelet Volume 10.7 fL (9.4-12.4); Monocytes # (auto) 1.26 K/uL (0.11-0.59); Monocytes % (auto) 8.1 %; Neutrophils # (auto) 12.63 K/uL (1.40-6.50); Neutrophils % (auto) 81.3 %; Platelet Count 373 K/uL (130-400); RDW Coefficient of Variation 13.9 % (11.5-14.5); RDW Standard Deviation 44.4 fL (36.4-46.3); Red Blood Count 4.48 M/uL (4.70-6.10); White Blood Count 15.53 K/ul (4.8-10.8)
[2022-06-27 18:37] LABS: Albumin Globulin Ratio 0.9 (0.9-2); Albumin Level 3.3 gm/dl (3.4-5.0); BUN Creatinine Ratio 37.4 (10-20); Bilirubin,Total 2.2 mg/dl (0.2-1.0); Calcium 8.7 mg/dl (8.6-10.3); Est GFR (African American) 75.1 ml/min; Est GFR (Non-African American) 64.8 ml/min; Globulin 3.5 gm/dl (2.5-4.0); Potassium 3.9 mmol/L (3.5-5.1); Total Protein 6.8 gm/dl (6.0-8.3)
[2022-06-27 18:42] LABS: Troponin I High Sensitivity 43.2 pg/ml (0-20)
[2022-06-27 18:56] LABS: INR 1.3 (0.9-1.1); Partial Thromboplastin Time 28.4 Seconds (21.0-31.0); Prothrombin Time 13.7 Seconds (9.0-12.0)
--- NOTE | 2022-06-27 20:04 | Ultrasound Report ---
LEFT LOWER EXTREMITY ARTERIAL DOPPLER ULTRASOUND CLINICAL HISTORY: Peripheral arterial disease, pulseless foot. COMPARISON STUDY: No previous studies for comparison. TECHNIQUE: Color and duplex Doppler sonography of the arterial system of the left lower extremity was performed. FINDINGS: Extensive atherosclerotic plaque within the left lower extremity is noted. There is triphas ic flow within left common femoral artery. No elevated velocities are noted. Trace flow within the man perficial femoral artery is noted. This suggests age-indeterminate severe stenosis versus short segme nt occlusion with distal reconstitution. There is monophasic flow within the left popliteal artery ho wever the waveform is abnormal with increased diastolic flow. The mid to distal left popliteal artery appears occluded. There is significantly dampened, monophasic flow within the left posterior tibial, anterior tibial, peroneal and dorsalis pedis vessels. IMPRESSION: 1. Extensive atherosclerotic plaque within the left lower extremity with markedly abnormal waveforms throughout the left lower extremity. If acute symptoms, Vascular surgery consultation is recommended. 2. Age indeterminate occlusion versus severe stenosis within the left superficial femoral artery. 3. Suspected occlusion of the mid to distal left popliteal artery with partial reconstitution. Monoph asic waveforms throughout the left calf vessels. ACT 112: Negative or not required by law. Electronically signed by: Patrick Vasques M.D. 06/27/2022 8:01 PM
[2022-06-27 20:12] LABS: Bilirubin Direct 0.8 mg/dl (0-0.2)
[2022-06-27] MEDS ORDERED: OPTIRAY 320 500ml IV ONE (21:21)
--- NOTE | 2022-06-27 22:04 | CT Scan Report ---
Exam(s): CTA RUNOFF (A/P + Patel Lower Ext) IV Amt: 113ml EXAM: CT Abdomen and Pelvis With Runoff to the Lower Extremities With Intravenous Contrast CLINICAL HISTORY: Reason for exam: ischemic LLE, Transaminitis (Venous phase also). TECHNIQUE: Axial computed tomographic images of the abdomen, pelvis and lower extremities with intravenous contrast. CTDI is 67 mGy and DLP is 2289.08 mGy-cm. Automated exposure control was utilized for the study. A dose lowering technique was utilized adhering to the principles of ALARA. COMPARISON: None FINDINGS: VASCULATURE: Aorta: Atherosclerotic changes of the vasculature. No abdominal aortic aneurysm or dissection. Celiac trunk and mesenteric arteries: No acute findings. No occlusion or significant stenosis. Renal arteries: No acute findings. No occlusion or significant stenosis. Right iliac arteries: No acute findings. No occlusion or significant stenosis. Right femoral/popliteal arteries: Occluded right popliteal artery. Mild stenoses in the right superficial femoral artery. Right calf/foot arteries: Some weak reconstitution of flow is seen in the right calf arteries. Occlusion of the distal right anterior tibial artery and peroneal artery. Left iliac arteries: No acute findings. No occlusion or significant stenosis. Left femoral/popliteal arteries: Severe stenosis in the left common femoral artery. Occluded left superficial femoral artery and popliteal artery. Left calf/foot arteries: Some reconstitution of flow in the left calf arteries, but the left anterior tibia artery and posterior tibial artery are mostly occluded. Patent left peroneal artery. Lung bases: Lower lung atelectasis. Heart: Cardiomegaly. Coronary artery and aortic valve calcifications. ABDOMEN: Liver: Unremarkable. No mass. Gallbladder and bile ducts: Unremarkable. No calcified stones. No ductal dilation. Pancreas: Unremarkable. No ductal dilation. No mass. Spleen: Unremarkable. No splenomegaly. Adrenals: Unremarkable. No mass. Kidneys and ureters: Mild bilateral hydroureteronephrosis without obstructing stone identified. Findings may be secondary to significantly distended bladder. Bilateral renal cysts. Stomach and bowel: Diverticulosis without evidence of diverticulitis. No small bowel obstruction. Evaluation of the stomach is limited by underdistention. PELVIS: Appendix: Prior appendectomy. Bladder: Significantly distended bladder. No significant bladder wall thickening or stone. Reproductive: Unremarkable as visualized. ABDOMEN, PELVIS and LOWER EXTREMITIES: Intraperitoneal space: Unremarkable. No significant fluid collection. No free air. Bones/joints: Degenerative changes of the spine. No acute fracture. No dislocation. Soft tissues: Mild soft tissue swelling of the left foot, ankle, and left lower leg. Calcifications along the right gluteus medius muscle. Lymph nodes: Unremarkable. No enlarged lymph nodes. IMPRESSION: 1. Occluded right popliteal artery. 2. Some weak reconstitution of flow is seen in the right calf arteries. Occlusion of the distal right anterior tibial artery and peroneal artery. 3. Severe stenosis in the left common femoral artery. 4. Occluded left superficial femoral artery and popliteal artery. 5. Some reconstitution of flow in the left calf arteries, but the left anterior tibia artery and posterior tibial artery are mostly occluded. 6. Mild bilateral hydroureteronephrosis without obstructing stone identified. Findings may be secondary to significantly distended bladder. Electronically signed by: Alejandra Hanson M.D. 06/27/22 22:04 PM
[2022-06-27] MEDS ORDERED: Heparin IV Adult Wt-Based Low-Dose *NO* Bolus Protocol IV ONE (22:42)
[2022-06-27] MEDS: SODIUM CHLORIDE 0.9% 1000ML 1,000 ML IV SCH (22:42)
[2022-06-27] MEDS: HEPARIN SODIUM/DEXTROSE 25,000 UNITS/500 ML BAG IV SCH (23:27)
--- NOTE | 2022-06-28 00:37 | History & Physical Report ---
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: (10) Atrial fibrillation: (11) Hypertension: Plan Severe PAD of left lower extremity including foot, left much greater than right- Multiple studies performed as noted above Left lower extremity with occluded common femoral, superficial femoral and popl iteal arteries Right lower extremity with occluded popliteal artery Patient is being started on heparin drip by the ED, and will continue until transfer to [facility] Primary intervention that [facility] thought that they could offer would be to have an amputation of the left lower extremity My discussion with the guards this evening, is that the administration at the 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, and I would recommend that discussion will be made with them in the morning, to determine the utility of having the patient undergo surgery for leg amputation given his poor quality of life and low chances of recovery of significant functioning Right MCA infarct- Noted on MRI of 06/16, with expected evolutionary changes without evidence of new hemorrhage or midline shift noted on CT tonight Per vascular at [place] and neurology in [facility], the risk of bleeding in the brain, is outweighed by necessity for anticoagulation of the PAD Serial neurologic examinations Patient will remain n.p.o. due to current neurologic state Atrial fibrillation/hypertension/HFpEF/valvular heart disease- Patient be admitted to monitored bed Troponin is mildly elevated at 43.2 likely a type II supply demand mismatch process Abnormal LFTs- Laboratories have changed significantly since most recent laboratories of 06/16/2022, with no apparent issues with ischemia or otherwise noted on CTA this evening Repeat laboratories in a.m. CODE STATUS: As best we confirmed this point, patient is still full resuscitation Would discuss with the [place] [facility] in the a.m. tomorrow revision of CODE STATUS, and whether surgery should be considered or palliative care Consult palliative care History of Present Illness Chief Complaint: The patient presents to the emergency department due to intermittent left lower extremity pain since discharge from [facility] on 06/21, and decreased pedal pulse, undetectable on Doppler earlier in the day today Primary Care Provider: CARO Piña The patient is an 82-year-old male resident of [facility], unable to contribute significantly to his HPI or review of systems due to dementia. He was recently admitted from 06/16-06/21/2022, after imaging on 06/16 showed and acute infarct with scattered hemorrhagic transformation in the infarct bed involving the frontal parietal lobe and portion of posterior temporal lobe. The patient was noted to have decreased pulses after complaining of left leg pain, and was referred back to the ED in [facility] this evening for further work-up. The patient was found to have significant arterial occlusion left lower extremity greater than right, and has been accepted at [facility] in [place] without any beds available at this time. The patient will therefore be admitted to [facility] on a heparin drip as recommended by vascular surgery at [place] and agreed upon by neurology at [facility], and will be transferred when bed is available at [place] Allergies Allergy/AdvReac Type Severity Reaction Status Date / Time No Known Allergies Allergy Verified 06/27/22 17:42 Home Medications Medication Instructions Recorded Confirmed Type aspirin 81 mg chewable tablet 81 mg PO DAILY 01/21/20 06/27/22 History digoxin 125 mcg (0.125 mg) tablet 0.125 mg PO DAILY@1600 #30 tabs 06/21/22 06/27/22 Rx (Digitek) acetaminophen 325 mg tablet 650 mg PO Q4H PRN Pain 06/27/22 06/27/22 History (Tylenol) atorvastatin 20 mg tablet 20 mg PO HS 06/27/22 06/27/22 History bisacodyl 10 mg rectal suppository 10 mg WA DAILY PRN Constipation 06/27/22 06/27/22 History dextrose 40 % oral gel (Glucose 1 ea PO DIRECTED PRN 06/27/22 06/27/22 History Gel) Hypoglycemia magnesium hydroxide 400 mg/5 mL 30 ml PO DAILY PRN Constipation 06/27/22 06/27/22 History oral suspension (Milk of Magnesia) metoprolol tartrate 50 mg tablet 25 mg PO Q12H 06/27/22 06/27/22 History ondansetron 4 mg disintegrating 4 mg PO Q4H PRN NAUSEA/VOMITING 06/27/22 06/27/22 History tablet polyethylene glycol 3350 17 17 g PO QDL PRN Constipation 06/27/22 06/27/22 History gram/dose oral powder (Miralax) sennosides 8.6 mg-docusate sodium 1 tab-cap PO QDL PRN Constipation 06/27/22 06/27/22 History 50 mg tablet (Senna Plus) sodium phosphates 19 gram-7 118 ml WA DAILY PRN Constipation 06/27/22 06/27/22 History gram/118 mL enema (Fleet Enema) Past Med/Surg History Medical History Aortic valve disorder Atrial fibrillation Atrial fibrillation and flutter Atrial fibrillation with rapid ventricular response Elevated d-dimer Elevated troponin Hypertension Hypoxia Mitral regurgitation Other nonrheumatic aortic valve disorders PAD (peripheral artery disease) Renal insufficiency Tricuspid regurgitation Social History Smoking Status: Former smoker Tobacco Type: Cigarettes Second Hand Exposure: No; Do You Dip or Chew Tobacco: No; Hx Alcohol Use: No Hx Substance Use: No Preferred Language: Maori Communication Ability: Effective Communication Ability Comment: tries to follow commands Ship Rigger Required: No Beliefs That Will Affect Care: None Current Living Situation: Other Current Living Situation Comment: correctional facility Feels Safe at Home: Yes Assistive Devices: None Review of Systems Review of Systems: Review of systems very limited due to patient's mental state and dementia Physical Exam Physical Exam: The patient does not respond to questioning, lethargic, normocephalic and atraumatic, lying in bed and in no acute distress. HEENT--PERRL, EOMI, mucous membranes and oropharynx dry. Neck--supple. No JVD. No bruits. Thyroid normal, trachea midline, no adenopathy. Heart--normal S1 and S2. No murmurs, rubs or gallops. Lungs--clear bilaterally, no respiratory distress, no accessory muscle use. Abdomen--normal bowel sounds and soft. Nontender. Nondistended. Extremities-- No detectable pulses bilaterally Dermatologic--left lower extremity mildly cool and light blue Neurologic--limited exam Rheumatologic--limited exam Psychiatric--unresponsive/lethargic Results & Data Results & Data Vital Signs (Past 12 Hours) Vital Signs Temp Pulse Pulse Resp BP BP Pulse Ox 06/27/22 23:06 83 06/27/22 20:37 92 H 16 131/87 93 06/27/22 17:27 90 06/27/22 17:34 89 06/27/22 16:36 95 H 18 150/80 H 95 06/27/22 16:36 36.6 C 95 H 16 150/80 H 95 O2 Del Method 06/27/22 23:06 06/27/22 20:37 Room Air 06/27/22 17:27 Room Air 06/27/22 17:34 06/27/22 16:36 06/27/22 16:36 Room Air Laboratory Results Laboratory Results WBC 15.53 K/ul (4.8-10.8) H 06/27/22 17:35 RBC 4.48 M/uL (4.70-6.10) L 06/27/22 17:35 Hgb 13.8 g/dl (14.0-18.0) L 06/27/22 17:35 Hct 39.3 % (42.0-52.0) L 06/27/22 17:35 MCV 87.7 fL (80.0-100.0) 06/27/22 17:35 MCH 30.8 pg (25.0-34.0) 06/27/22 17:35 MCHC 35.1 g/dL (32.0-36.0) 06/27/22 17:35 RDW Std Deviation 44.4 fL (36.4-46.3) 06/27/22 17:35 RDW Coeff of Gloria 13.9 % (11.5-14.5) 06/27/22 17:35 Plt Count 373 K/uL (130-400) 06/27/22 17:35 MPV 10.7 fL (9.4-12.4) 06/27/22 17:35 Immature Gran % (Auto) 0.7 % 06/27/22 17:35 Neut % (Auto) 81.3 % 06/27/22 17:35 Lymph % (Auto) 8.6 % 06/27/22 17:35 [place] % (Auto) 8.1 % 06/27/22 17:35 Eos % (Auto) 1.0 % 06/27/22 17:35 Baso % (Auto) 0.3 % 06/27/22 17:35 Neut # (Auto) 12.63 K/uL (1.40-6.50) H 06/27/22 17:35 Lymph # (Auto) 1.33 K/uL (1.2-3.4) 06/27/22 17:35 [place] # (Auto) 1.26 K/uL (0.11-0.59) H 06/27/22 17:35 Eos # (Auto) 0.16 K/uL (0-0.50) 06/27/22 17:35 Baso # (Auto) 0.04 K/uL (0-0.2) 06/27/22 17:35 Immature Gran # (Auto) 0.11 K/uL (0.01-0.20) 06/27/22 17:35 PT 13.7 Seconds (9.0-12.0) H 06/27/22 17:35 INR 1.3 (0.9-1.1) H 06/27/22 17:35 APTT 28.4 Seconds (21.0-31.0) 06/27/22 17:35 PTT Ratio 1.0 06/27/22 17:35 Sodium 136 mmol/L (136-145) 06/27/22 17:35 Potassium 3.9 mmol/L (3.5-5.1) 06/27/22 17:35 Chloride 102 mmol/L (98-107) 06/27/22 17:35 Carbon Dioxide 24 mmol/L (21-32) 06/27/22 17:35 Anion Gap 10 (3-11) 06/27/22 17:35 BUN 40 mg/dl (6-23) H 06/27/22 17:35 Creatinine 1.07 mg/dl (0.6-1.4) 06/27/22 17:35 Est Cr Clr Drug Dosing 63.0 ml/min 06/27/22 17:35 Est GFR ( Amer) 75.1 ml/min 06/27/22 17:35 Est GFR (Non-Af Amer) 64.8 ml/min 06/27/22 17:35 BUN/Creatinine Ratio 37.4 (10-20) H 06/27/22 17:35 Glucose 120 mg/dl (70-99(Fasting)) H 06/27/22 17:35 Calcium 8.7 mg/dl (8.6-10.3) 06/27/22 17:35 Total Bilirubin 2.2 mg/dl (0.2-1.0) H 06/27/22 17:35 Direct Bilirubin 0.8 mg/dl (0-0.2) H 06/27/22 17:35 AST 252 U/L (13-39) H 06/27/22 17:35 ALT 142 U/L (7-52) H 06/27/22 17:35 Alkaline Phosphatase 110 U/L (34-104) H 06/27/22 17:35 Troponin I High Sens 43.2 pg/ml (0-20) H 06/27/22 17:35 Total Protein 6.8 gm/dl (6.0-8.3) 06/27/22 17:35 Albumin 3.3 gm/dl (3.4-5.0) L 06/27/22 17:35 Globulin 3.5 gm/dl (2.5-4.0) 06/27/22 17:35 Albumin/Globulin Ratio 0.9 (0.9-2) 06/27/22 17:35 Lipase 17 U/L (11-82) 06/27/22 17:35 Urine Color [place] 06/28/22 02:17 Urine Appearance Clear (Clear) 06/28/22 02:17 Urine pH 5.0 (4.5-7.5) 06/28/22 02:17 Ur Specific [place] 1.024 (1.000-1.030) 06/28/22 02:17 Urine Protein Trace (Negative) H 06/28/22 02:17 Urine Glucose (UA) Negative (Negative) 06/28/22 02:17 Urine Ketones Negative (Negative) 06/28/22 02:17 Urine Blood 2+ (Negative) H 06/28/22 02:17 Urine Nitrite Positive (Negative) A 06/28/22 02:17 Urine Bilirubin Negative (Negative) 06/28/22 02:17 Urine Urobilinogen Negative (Negative) 06/28/22 02:17 Ur Leukocyte Esterase Trace (Negative) H 06/28/22 02:17 Urine WBC (Auto) 0 /hpf (0-5) 06/28/22 02:17 Urine RBC (Auto) 0-4 /hpf (0-4) 06/28/22 02:17 U Hyaline Cast (Auto) 0 /lpf (0-5) 06/28/22 02:17 U Epithel Cells (Auto) 0-5 /lpf (0-5) 06/28/22 02:17 Urine Bacteria (Auto) Negative (Negative) 06/28/22 02:17 SARS-CoV-2, RNA, NAAT NEGATIVE (NEGATIVE) 06/27/22 17:37 Impressions Chest X-Ray 06/27/22 17:27 XR chest 1V portable CLINICAL HISTORY: pad TECHNIQUE: Single frontal radiograph of the chest was obtained. Comparison: Comparison is made to chest radiograph 06/16/2022 FINDINGS: No lines and tubes are seen. Cardiomegaly is noted. The aortic arch is calcified. The lungs are clear. No evidence of pleural effusion or pneumothorax. IMPRESSION: Previously noted pulmonary edema has resolved, stable cardiomegaly is seen. No acute abnormalities. ACT 112: Negative or not required by law. Electronically signed by: Niko Robison M.D. 06/27/2022 6:04 PM Duplex Scan Lower Extremity Artery 06/27/22 17:27 LEFT LOWER EXTREMITY ARTERIAL DOPPLER ULTRASOUND CLINICAL HISTORY: Peripheral arterial disease, pulseless foot. COMPARISON STUDY: No previous studies for comparison. TECHNIQUE: Color and duplex Doppler sonography of the arterial system of the left lower extremity was performed. FINDINGS: Extensive atherosclerotic plaque within the left lower extremity is noted. There is triphasic flow within left common femoral artery. No elevated velocities are noted. Trace flow within the superficial femoral artery is noted. This suggests age-indeterminate severe stenosis versus short segment occlusion with distal reconstitution. There is monophasic flow within the left popliteal artery however the waveform is abnormal with increased diastolic flow. The mid to distal left popliteal artery appears occluded. There is significantly dampened, monophasic flow within the left posterior tibial, anterior tibial, peroneal and dorsalis pedis vessels. IMPRESSION: 1. Extensive atherosclerotic plaque within the left lower extremity with markedly abnormal waveforms throughout the left lower extremity. If acute symptoms, Vascular surgery consultation is recommended. 2. Age indeterminate occlusion versus severe stenosis within the left superficial femoral artery. 3. Suspected occlusion of the mid to distal left popliteal artery with partial reconstitution. Monophasic waveforms throughout the left calf vessels. ACT 112: Negative or not required by law. Electronically signed by: Patrick Vasques M.D. 06/27/2022 8:[address] 06/27/22 17:29 CT head/brain wo con CLINICAL HISTORY: h/o cva hemorrhagic conv, re-eval Technique: Contiguous axial CT images of the head were acquired from the base of the skull to the vertex without intravenous contrast administration. Images were viewed in brain, subdural and bone windows. Automated dose lowering techniques and/or adjustment according to patient size were utilized for this exam. 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 Previously noted foci of hemorrhage are less conspicuous likely due to evolutionary change. No new infarct or hemorrhage is seen. Old foci of encephalomalacia are seen in the left frontal and parietal lobes compatible with remote infarcts. Imaged portions of the paranasal sinuses and mastoid air cells are clear. The orbits appear normal. There are no acute fractures of the calvaria or scalp swelling. Impression: Expected evolutionary changes without evidence of new hemorrhage. No midline shift. ACT 112: Negative or not required by law. Electronically signed by: Niko Robison M.D. 06/27/2022 6:02 PM Aorta w/Runoff CTA 06/27/22 20:18 Exam(s): CTA RUNOFF (A/P + Patel Lower Ext) IV Amt: 113ml EXAM: CT Abdomen and Pelvis With Runoff to the Lower Extremities With Intravenous Contrast CLINICAL HISTORY: Reason for exam: ischemic LLE, Transaminitis (Venous phase also). TECHNIQUE: Axial computed tomographic images of the abdomen, pelvis and lower extremities with intravenous contrast. CTDI is 67 mGy and DLP is 2289.08 mGy-cm. Automated exposure control was utilized for the study. A dose lowering technique was utilized adhering to the principles of ALARA. COMPARISON: None FINDINGS: VASCULATURE: Aorta: Atherosclerotic changes of the vasculature. No abdominal aortic aneurysm or dissection. Celiac trunk and mesenteric arteries: No acute findings. No occlusion or significant stenosis. Renal arteries: No acute findings. No occlusion or significant stenosis. Right iliac arteries: No acute findings. No occlusion or significant stenosis. Right femoral/popliteal arteries: Occluded right popliteal artery. Mild stenoses in the right superficial femoral artery. Right calf/foot arteries: Some weak reconstitution of flow is seen in the right calf arteries. Occlusion of the distal right anterior tibial artery and peroneal artery. Left iliac arteries: No acute findings. No occlusion or significant stenosis. Left femoral/popliteal arteries: Severe stenosis in the left common femoral artery. Occluded left superficial femoral artery and popliteal artery. Left calf/foot arteries: Some reconstitution of flow in the left calf arteries, but the left anterior tibia artery and posterior tibial artery are mostly occluded. Patent left peroneal artery. Lung bases: Lower lung atelectasis. Heart: Cardiomegaly. Coronary artery and aortic valve calcifications. ABDOMEN: Liver: Unremarkable. No mass. Gallbladder and bile ducts: Unremarkable. No calcified stones. No ductal dilation. Pancreas: Unremarkable. No ductal dilation. No mass. Spleen: Unremarkable. No splenomegaly. Adrenals: Unremarkable. No mass. Kidneys and ureters: Mild bilateral hydroureteronephrosis without obstructing stone identified. Findings may be secondary to significantly distended bladder. Bilateral renal cysts. Stomach and bowel: Diverticulosis without evidence of diverticulitis. No small bowel obstruction. Evaluation of the stomach is limited by underdistention. PELVIS: Appendix: Prior appendectomy. Bladder: Significantly distended bladder. No significant bladder wall thickening or stone. Reproductive: Unremarkable as visualized. ABDOMEN, PELVIS and LOWER EXTREMITIES: Intraperitoneal space: Unremarkable. No significant fluid collection. No free air. Bones/joints: Degenerative changes of the spine. No acute fracture. No dislocation. Soft tissues: Mild soft tissue swelling of the left foot, ankle, and left lower leg. Calcifications along the right gluteus medius muscle. Lymph nodes: Unremarkable. No enlarged lymph nodes. IMPRESSION: 1. Occluded right popliteal artery. 2. Some weak reconstitution of flow is seen in the right calf arteries. Occlusion of the distal right anterior tibial artery and peroneal artery. 3. Severe stenosis in the left common femoral artery. 4. Occluded left superficial femoral artery and popliteal artery. 5. Some reconstitution of flow in the left calf arteries, but the left anterior tibia artery and posterior tibial artery are mostly occluded. 6. Mild bilateral hydroureteronephrosis without obstructing stone identified. Findings may be secondary to significantly distended bladder. Electronically signed by: Alejandra Hanson M.D. 06/27/22 22:04 PM Code Status & VTE Plan Code Status Full code VTE Prophylaxis Plan VTE Prophylaxis will be ordered: Yes PG Care Time/CCT Total # of Minutes Spent Total Time Spent with Patient: Total time spent is greater than 50% in coordination of care (as documented) at patient's floor/unit and/or counseling patient: Coding Level of Care Code 65183 INT INP/OBS CARE MIN Diagnoses Ischemic foot I99.8 Atrial fibrillation I48.91 Arterial occlusive disease I70.90 History of CVA with residual deficit I69.30 Valvular heart disease I38 Cerebrovascular accident (CVA) with intracranial hemorrhage I61.9 Acute metabolic encephalopathy G93.41 Atrial fibrillation with rapid ventricular response I48.91 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
[2022-06-28 02:39] LABS: Appearance Urine Clear (Clear); Bacteria Urine Automated Negative (Negative); Bilirubin Urine Negative (Negative); Blood Urine 2+ (Negative); Cast Urine Automated 0 /lpf (0-5); Color Urine Orange; Epithelial Cell Urine Auto 0-5 /lpf (0-5); Glucose Urine UA Negative (Negative); Ketones Urine Negative (Negative); Leukocyte Esterase Urine Trace (Negative); Nitrite Urine Positive (Negative); Protein Urine Trace (Negative); RBC Urine Automated 0-4 /hpf (0-4); Specific Gravity Urine 1.024 (1.000-1.030); Urobilinogen Urine Negative (Negative); WBC Urine Automated 0 /hpf (0-5)
[2022-06-28] MEDS ORDERED: LACTATED RINGER'S 1,000 ML IV SCH (02:59)
[2022-06-28] MEDS ORDERED: ONDANSETRON INJ 2 MG/ML 2 ML VIAL IV PRN (02:59)
[2022-06-28] MEDS: SODIUM CHLORIDE 0.9% 1000ML 1,000 ML IV SCH ×2 (05:16→17:40)
[2022-06-28 08:07] LABS: Basophils # (auto) 0.04 K/uL (0-0.2); Basophils % (auto) 0.3 %; Eosinophils # (auto) 0.09 K/uL (0-0.50); Eosinophils % (auto) 0.6 %; Hemoglobin 13.6 g/dl (14.0-18.0); Immature Granulocytes # (auto) 0.29 K/uL (0.01-0.20); Lymphocytes # (auto) 0.89 K/uL (1.2-3.4); Lymphocytes % (auto) 6.1 %; Mean Corpuscular Hemoglobin 30.4 pg (25.0-34.0); Mean Corpuscular Hgb Conc 34.9 g/dL (32.0-36.0); Mean Corpuscular Volume 87.2 fL (80.0-100.0); Mean Platelet Volume 10.2 fL (9.4-12.4); Monocytes # (auto) 1.03 K/uL (0.11-0.59); Neutrophils # (auto) 12.32 K/uL (1.40-6.50); Platelet Count 366 K/uL (130-400); RDW Coefficient of Variation 13.6 % (11.5-14.5); RDW Standard Deviation 43.3 fL (36.4-46.3); Red Blood Count 4.47 M/uL (4.70-6.10); White Blood Count 14.66 K/ul (4.8-10.8)
[2022-06-28 08:16] LABS: Albumin Globulin Ratio 0.9 (0.9-2); Albumin Level 3.1 gm/dl (3.4-5.0); BUN Creatinine Ratio 35.6 (10-20); Calcium 8.3 mg/dl (8.6-10.3); Creatinine Clr Calc Pharmacy 57.5 ml/min; Est GFR (African American) 77.7 ml/min; Globulin 3.3 gm/dl (2.5-4.0); Potassium 3.9 mmol/L (3.5-5.1); Total Protein 6.4 gm/dl (6.0-8.3)
[2022-06-28 08:28] LABS: INR 1.2 (0.9-1.1); Partial Thromboplastin Ratio 1.3; Partial Thromboplastin Time 36.8 Seconds (21.0-31.0); Prothrombin Time 13.2 Seconds (9.0-12.0)
--- NOTE | 2022-06-28 08:52 | Communication Note ---
Date of Service: June 28, 2022 Please see today+P for full plan. Patient is accepted for transfer to [facility], with intervention they can offer of LLE amputation. Question given multiple medical comorbidities, recent CVA, dementia, if patient is a reasonable candidate for surgery given outlook of quality of life post-surgery. Will discuss case with Palliative Care and correctional facility.
[2022-06-28] MEDS ORDERED: DIGOXIN 0.125 MG TAB PO ONE (09:02)
[2022-06-28] MEDS ORDERED: MoRPHine SULFATE 2 MG/ML CARP IV STA (09:04)
[2022-06-28] MEDS: METOPROLOL TARTRATE 25 MG TAB PO SCH ×4 (09:35→23:13)
--- NOTE | 2022-06-28 14:08 | Ultrasound Report ---
ABDOMINAL ULTRASOUND, RIGHT UPPER QUADRANT HISTORY: Elevated LFTs abnl LFTs. COMPARISON: CTA 06/27/2022 FINDINGS: Limited study secondary to obscuring bowel gas and patient motion. Pancreas: The pancreas is mostly obscured by bowel gas. Liver: Liver measures 14.6 cm in length and is partially secured by bowel gas. Gallbladder: Mild gallbladder distention without wall thickening or shadowing cholelithiasis. No silvano cholecystic fluid. Negative sonographic Wing sign. CBD: 0.4 cm. Right kidney: Right renal cyst, 2.5 cm. No hydronephrosis. IMPRESSION: 1. Limited exam. 2. Mildly distended gallbladder without cholelithiasis. 3. No biliary ductal dilation. ACT 112: Negative or not required by law. Electronically signed by: Herberth Mcgee M.D. 06/28/2022 2:06 PM
[2022-06-28 16:17] LABS: Partial Thromboplastin Ratio 1.5
[2022-06-28 16:28] LABS: Partial Thromboplastin Time 41.4 Seconds (21.0-31.0)
[2022-06-28 18:01] LABS: Base Excess VBG -0.2 mEq/L; HCO3 VBG 23 mmol/L; Oxygen Saturation VBG 96.7 %; PCO2 VBG 31 mmHg (38-50); PO2 VBG 72 mmHg; pH VBG 7.47 (7.36-7.41)
[2022-06-28 18:32] LABS: Albumin Level 2.9 gm/dl (3.4-5.0); Bilirubin,Total 1.7 mg/dl (0.2-1.0); Calcium 7.9 mg/dl (8.6-10.3); Creatinine Clr Calc Pharmacy 61.7 ml/min; Est GFR (African American) 84.5 ml/min; Est GFR (Non-African American) 72.9 ml/min; Potassium 4.1 mmol/L (3.5-5.1); Total Protein 5.9 gm/dl (6.0-8.3)
--- NOTE | 2022-06-28 18:35 | CT Scan Report ---
HEAD CT NONCONTRAST CT DOSE: 625.80 mGy.cm HISTORY: recent hemorrhagic CVA, altered mental status, eval re-bleed TECHNIQUE: Multiaxial CT images of the head were performed without the use of intravenous contrast. A utomated exposure control was utilized for this study. A dose lowering technique was utilized adheri ng to the principles of ALARA. Comparison: Head CT 06/27/2022. Findings: The paranasal sinuses and mastoid air cells are clear. Atrophy and microvascular ischemic c hanges are again noted. There are old left frontal and left parietal lobe infarcts, unchanged. Contin ued expected evolution of the large right MCA territory infarct with near-complete resolution of the the small hemorrhagic foci. No areas of acute hemorrhage identified. No mass or midline shift. Impression: Expected evolution of the subacute right MCA territory infarct with near complete resolution of the s mall hemorrhagic foci. No new areas of intracranial hemorrhage identified. ACT 112: Negative or not required by law. Electronically signed by: Jamie Rosales M.D. 06/28/2022 6:32 PM
--- NOTE | 2022-06-28 19:30 | Discharge Summary ---
Date of Service June 28, 2022 Admission HPI Per Admitting Provider The patient is an 82-year-old male resident of [facility], unable to contribute significantly to his HPI or review of systems due to dementia. He was recently admitted from 06/16-06/21/2022, after imaging on 06/16 showed and acute infarct with scattered hemorrhagic transformation in the infarct bed involving the frontal parietal lobe and portion of posterior temporal lobe. The patient was noted to have decreased pulses after complaining of left leg pain, and was referred back to the ED in [facility] this evening for further work-up. The patient was found to have significant arterial occlusion left lower extremity greater than right, and has been accepted at [facility] in [place] without any beds available at this time. The patient will therefore be admitted to [facility] on a heparin drip as recommended by vascular surgery at [place] and agreed upon by neurology at [facility], and will be transferred when bed is available at [place] Principal Diagnosis 1. Ischemic left foot 2nd to severe PAD 2. Severe PAD of b/l legs 3. Acute metabolic encephalopathy 4. Question of cognitive impairment 5. Acute abnormal LFTs - etiology uncertain 6. Permanent atrial fibrillation 7. 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 Mild hemorrhagic transformation of #7 - resolved 9. Incarceration status 10. Valvular heart disease - moderate aortic stenosis, moderate mitral regurgitation 11. History of HFpEF - compensated during this stay Discharge Exam gen - looks ill, altered, dehydrated mouth - MM dry eyes - PERRL, each pupil about 2-3mm neck - no JVD heart - irregularly irregular, s1 s2, 2/6 systolic murmur RUSB/LLSB, rate <100 lungs - CTA b/l, no rales or wheeze abd - mildly distended but nontender, no HSM; BS+ vascular - right popliteal pulse 2+; left popliteal pulse 1+; DP and pos tib pulses right foot 1-2+; DP and pos tib pulses left foot - 0; cap refill delayed L foot, cold to touch, and painful to palpation over the heel/posterior foot; right foot warm, cap refill 2 sec psych - confused, lethargic, oriented x zero neuro - handgrip strength 5/5 R, 4/5 L; RUE/RLE 5/5; left arm strength 4-5/5; left leg strength near 5/5 Discharge Data Allergies Allergy/AdvReac Type Severity Reaction Status Date / Time No Known Allergies Allergy Verified 06/27/22 17:42 Ordered Studies Chest X-Ray 06/27/22 17:27 XR chest 1V portable CLINICAL HISTORY: pad TECHNIQUE: Single frontal radiograph of the chest was obtained. Comparison: Comparison is made to chest radiograph 06/16/2022 FINDINGS: No lines and tubes are seen. Cardiomegaly is noted. The aortic arch is calcified. The lungs are clear. No evidence of pleural effusion or pneumothorax. IMPRESSION: Previously noted pulmonary edema has resolved, stable cardiomegaly is seen. No acute abnormalities. ACT 112: Negative or not required by law. Electronically signed by: Niko Robison M.D. 06/27/2022 6:04 PM Duplex Scan Lower Extremity Artery 06/27/22 17:27 LEFT LOWER EXTREMITY ARTERIAL DOPPLER ULTRASOUND CLINICAL HISTORY: Peripheral arterial disease, pulseless foot. COMPARISON STUDY: No previous studies for comparison. TECHNIQUE: Color and duplex Doppler sonography of the arterial system of the left lower extremity was performed. FINDINGS: Extensive atherosclerotic plaque within the left lower extremity is noted. There is triphasic flow within left common femoral artery. No elevated velocities are noted. Trace flow within the superficial femoral artery is noted. This suggests age-indeterminate severe stenosis versus short segment occlusion with distal reconstitution. There is monophasic flow within the left popliteal artery however the waveform is abnormal with increased diastolic flow. The mid to distal left popliteal artery appears occluded. There is significantly dampened, monophasic flow within the left posterior tibial, anterior tibial, peroneal and dorsalis pedis vessels. IMPRESSION: 1. Extensive atherosclerotic plaque within the left lower extremity with markedly abnormal waveforms throughout the left lower extremity. If acute symptoms, Vascular surgery consultation is recommended. 2. Age indeterminate occlusion versus severe stenosis within the left superficial femoral artery. 3. Suspected occlusion of the mid to distal left popliteal artery with partial reconstitution. Monophasic waveforms throughout the left calf vessels. ACT 112: Negative or not required by law. Electronically signed by: Patrick Vasques M.D. 06/27/2022 8:[address] 06/27/22 17:29 CT head/brain wo con CLINICAL HISTORY: h/o cva hemorrhagic conv, re-eval Technique: Contiguous axial CT images of the head were acquired from the base of the skull to the vertex without intravenous contrast administration. Images were viewed in brain, subdural and bone windows. Automated dose lowering techniques and/or adjustment according to patient size were utilized for this exam. 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 Previously noted foci of hemorrhage are less conspicuous likely due to evolutionary change. No new infarct or hemorrhage is seen. Old foci of encephalomalacia are seen in the left frontal and parietal lobes compatible with remote infarcts. Imaged portions of the paranasal sinuses and mastoid air cells are clear. The orbits appear normal. There are no acute fractures of the calvaria or scalp swelling. Impression: Expected evolutionary changes without evidence of new hemorrhage. No midline shift. ACT 112: Negative or not required by law. Electronically signed by: Niko Robison M.D. 06/27/2022 6:02 PM Aorta w/Runoff CTA 06/27/22 20:18 Exam(s): CTA RUNOFF (A/P + Patel Lower Ext) IV Amt: 113ml EXAM: CT Abdomen and Pelvis With Runoff to the Lower Extremities With Intravenous Contrast CLINICAL HISTORY: Reason for exam: ischemic LLE, Transaminitis (Venous phase also). TECHNIQUE: Axial computed tomographic images of the abdomen, pelvis and lower extremities with intravenous contrast. CTDI is 67 mGy and DLP is 2289.08 mGy-cm. Automated exposure control was utilized for the study. A dose lowering technique was utilized adhering to the principles of ALARA. COMPARISON: None FINDINGS: VASCULATURE: Aorta: Atherosclerotic changes of the vasculature. No abdominal aortic aneurysm or dissection. Celiac trunk and mesenteric arteries: No acute findings. No occlusion or significant stenosis. Renal arteries: No acute findings. No occlusion or significant stenosis. Right iliac arteries: No acute findings. No occlusion or significant stenosis. Right femoral/popliteal arteries: Occluded right popliteal artery. Mild stenoses in the right superficial femoral artery. Right calf/foot arteries: Some weak reconstitution of flow is seen in the right calf arteries. Occlusion of the distal right anterior tibial artery and peroneal artery. Left iliac arteries: No acute findings. No occlusion or significant stenosis. Left femoral/popliteal arteries: Severe stenosis in the left common femoral artery. Occluded left superficial femoral artery and popliteal artery. Left calf/foot arteries: Some reconstitution of flow in the left calf arteries, but the left anterior tibia artery and posterior tibial artery are mostly occluded. Patent left peroneal artery. Lung bases: Lower lung atelectasis. Heart: Cardiomegaly. Coronary artery and aortic valve calcifications. ABDOMEN: Liver: Unremarkable. No mass. Gallbladder and bile ducts: Unremarkable. No calcified stones. No ductal dilation. Pancreas: Unremarkable. No ductal dilation. No mass. Spleen: Unremarkable. No splenomegaly. Adrenals: Unremarkable. No mass. Kidneys and ureters: Mild bilateral hydroureteronephrosis without obstructing stone identified. Findings may be secondary to significantly distended bladder. Bilateral renal cysts. Stomach and bowel: Diverticulosis without evidence of diverticulitis. No small bowel obstruction. Evaluation of the stomach is limited by underdistention. PELVIS: Appendix: Prior appendectomy. Bladder: Significantly distended bladder. No significant bladder wall thickening or stone. Reproductive: Unremarkable as visualized. ABDOMEN, PELVIS and LOWER EXTREMITIES: Intraperitoneal space: Unremarkable. No significant fluid collection. No free air. Bones/joints: Degenerative changes of the spine. No acute fracture. No dislocation. Soft tissues: Mild soft tissue swelling of the left foot, ankle, and left lower leg. Calcifications along the right gluteus medius muscle. Lymph nodes: Unremarkable. No enlarged lymph nodes. IMPRESSION: 1. Occluded right popliteal artery. 2. Some weak reconstitution of flow is seen in the right calf arteries. Occlusion of the distal right anterior tibial artery and peroneal artery. 3. Severe stenosis in the left common femoral artery. 4. Occluded left superficial femoral artery and popliteal artery. 5. Some reconstitution of flow in the left calf arteries, but the left anterior tibia artery and posterior tibial artery are mostly occluded. 6. Mild bilateral hydroureteronephrosis without obstructing stone identified. Findings may be secondary to significantly distended bladder. Electronically signed by: Alejandra Hanson M.D. 06/27/22 22:04 PM Gallbladder Ultrasound 06/28/22 13:30 ABDOMINAL ULTRASOUND, RIGHT UPPER QUADRANT HISTORY: Elevated LFTs abnl LFTs. COMPARISON: CTA 06/27/2022 FINDINGS: Limited study secondary to obscuring bowel gas and patient motion. Pancreas: The pancreas is mostly obscured by bowel gas. Liver: Liver measures 14.6 cm in length and is partially secured by bowel gas. Gallbladder: Mild gallbladder distention without wall thickening or shadowing cholelithiasis. No pericholecystic fluid. Negative sonographic Wing sign. CBD: 0.4 cm. Right kidney: Right renal cyst, 2.5 cm. No hydronephrosis. IMPRESSION: 1. Limited exam. 2. Mildly distended gallbladder without cholelithiasis. 3. No biliary ductal dilation. ACT 112: Negative or not required by law. Electronically signed by: Herberth Mcgee M.D. 06/28/2022 2:[address] 06/28/22 15:[address] DOSE: 625.80 mGy.cm HISTORY: recent hemorrhagic CVA, altered mental status, eval re-bleed TECHNIQUE: Multiaxial CT images of the head were performed without the use of intravenous contrast. Automated exposure control was utilized for this study. A dose lowering technique was utilized adhering to the principles of ALARA. Comparison: Head CT 06/27/2022. Findings: The paranasal sinuses and mastoid air cells are clear. Atrophy and microvascular ischemic changes are again noted. There are old left frontal and left parietal lobe infarcts, unchanged. Continued expected evolution of the large right MCA territory infarct with near-complete resolution of the the small hemorrhagic foci. No areas of acute hemorrhage identified. No mass or midline shift. Impression: Expected evolution of the subacute right MCA territory infarct with near complete resolution of the small hemorrhagic foci. No new areas of intracranial hemorrhage identified. ACT 112: Negative or not required by law. Electronically signed by: Jamie Rosales M.D. 06/28/2022 6:32 PM Hospital Course (1) Ischemic foot: The patient had evidence of ischemia to his left foot with nonpalpable pulses, poor capillary refill, significant pain, etc. at time of ER presentation. Arterial duplex study and CTA of aorta with run-off showed severe b/l LE PAD. CTA showed the following - 1. Occluded right popliteal artery. 2. Some weak reconstitution of flow is seen in the right calf arteries. Occlusion of the distal right anterior tibial artery and peroneal artery. 3. Severe stenosis in the left common femoral artery. 4. Occluded left superficial femoral artery and popliteal artery. 5. Some reconstitution of flow in the left calf arteries, but the left anterior tibia artery and posterior tibial artery are mostly occluded. The [facility] ER attending discussed Mr Christian's case with multiple individuals at [facility] including vascular surgery, neurology, and the hospitalist team. Ultimately it was decided that the benefits of heparinization outweighed the risk of recurrent bleeding and thus the patient was started on heparin drip low- dose weight-based protocol for his ischemic foot. With that said all providers recognized that there was a very real risk of recu rrent intra-cranial bleeding given his recent right-sided MCA territory stroke with hemorrhagic transformation. Ultimately Dr Sundar Bridges of the hospitalist team accepted Mr Gonzales in transfer to [facility] for ongoing care and vascular consultation. The transfer to [facility] was deemed necessary so that neurosurgical services could be available in the event the patient had recurrent intracranial bleeding while on heparin. Unfortunately there was not a bed immediately available at [facility] and thus the patient was admitted to the telemetry unit here at [facility]. During his stay he was very lethargic & altered. The patient has a question of underlying cognitive impairment but his severe confusion/lethargy was well above his usual neuropsychiatric baseline. He was continued on IV heparin, IV fluids, and given pain meds for his left foot pain. On the afternoon of 06/28/22, due to the patient's persistently altered mental status, a 2nd CT of the head was obtained. Fortunately this did NOT show any evidence of intracranial bleeding. Repeat labs at that time showed abnormal LFTs but trending downward, stable creatinine and electrolytes, and no evidence of acidosis. Digoxin level was 0.7. Upon transfer to [facility] he will need emergent consultation with vascular surgery for his left ischemic foot. (2) Atrial fibrillation: Patient presented in rapid a.fib. His a.fib is permanent. Following his 06/16/22 to 06/21/22 hospital stay for the right-sided MCA territory stroke plans were in place to ultimately start him on Eliquis as an outpatient. Initiation of anticoagulation was delayed following his stroke due to the hemorrhagic transformation he had experienced. Again he was begun on low-dose heparin infusion for #1 above during this brief stay. His digoxin and metoprolol BID were continued while here. (3) Arterial occlusive disease: See #1 above (4) Acute metabolic encephalopathy: Severe, likely 2nd to #[address] head x 2 during this stay without acute hemorrhage or acute CVA. Altered MS was in the setting of a suspected, baseline cognitive impairment. (5) History of CVA with residual deficit: 06/16/22 - large right-sided MCA territory stroke with mild hemorrhagic transformation. Resulting left-sided hemiparesis. Presumed embolic from his permanent a.fib. He had never been on anticoagulation prior to this stroke event. (6) Valvular heart disease: Echo 06/17/22 with moderate and moderate MR. 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 (9) Hypertension: BPs were well-controlled while here. (10) Abnormal LFTs: The patient presented on 06/27/22 with abnormal LFTs. There were markedly different than his LFTs during the recent stay for his stroke. Repeat LFTs on 06/28/22 were better with modest decreases seen in AST, ALT, total bili, and alk phos. GB/liver ultrasound showed no acute findings. Suspect hypoperfusion to the liver in the setting of rapid a.fib, dehydration, etc may have led to this. Will need ongoing surveillance of LFTs. Ammonia level 06/28/22 was normal. Plan Patient's status & prognosis are guarded. He remains full code. Recommend palliative care consultation while at [facility]. Will need to discuss with [facility] medical coding manager and/or administration goals of care, code status, etc I would like to thank Dr Sundar Bridges at [facility] for accepting Mr Gonzales in transfer for ongoing care. Total Time Total Time Spent Total Time Spent (In Minutes): 60 Discharge Plan Discharge Items Patient Disposition: Transfer Acute Care Hospital Reason For Visit: LLE ARTERIAL OCCLUSION Discharge Diagnosis: 1. LLE arterial occlusion with ischemic left foot 2. Severe PAD of b/l legs 3. Permanent atrial fibrillation 4. Question of cognitive impairment 5. Acute metabolic encephalopathy 6. Abnormal LFTs 7. Recent right-sided MCA territory stroke with hemorrhagic transformation (06/16/22) Activity: As commented below Activity Comment: bedrest Non-emergency contact: Primary Care Provider Call non-emergency contact if: you have any medication questions, your symptoms worsen and your pain is not controlled Follow-up/Referrals: Wang ELIZONDO [Primary Care Provider] - Diet: Nothing by Mouth Addtl Attending Provider Instructions: Severe PAD of bilateral lower extremities -- Left lower extremity with occluded common femoral, superficial femoral and popliteal arteries leading to ischemic left foot Right lower extremity with occluded popliteal artery Continue heparin drip Primary intervention that [facility] thought that they could offer would be to have an amputation of the left lower extremity Right MCA infarct with hemorrhagic transformation- Noted on MRI of 06/16, with expected evolutionary changes without evidence of new hemorrhage or midline shift noted on CT head x 2 this admission Per vascular at [place] and neurology in [facility], the risk of bleeding in the brain, is outweighed by necessity for anticoagulation of the PAD Serial neurologic examinations Patient will remain n.p.o. due to current neurologic state and severely altered mental status Atrial fibrillation/hypertension/h/o HFpEF/valvular heart disease- Patient admitted to monitored bed Troponin is mildly elevated at 43.2 likely a type II supply demand mismatch process Abnormal LFTs- Laboratories elevated since most recent laboratories of 06/16/2022 (AST 252, ALT 142, TBili 2.2, DBili 0.8, Alk Phos 110), with no acute abnormalities noted on CTA runoff this admission RUQ u/s with normal appearing liver and no gallstones or abnormal biliary tract findings CODE STATUS: Patient is still full code Would discuss with the residential medical coding manager/administration his CODE STATUS as his prognosis is very poor Consider palliative care consultation Pending Studies at Discharge: No Stand-Alone Forms: My [facility] Skilled Items Patient informed of condition?: No (patient too altered/lethargic) DNR: No Discharge Level of Care: Other Communicable Disease: No Discharge Prognosis: Deteriorating Lines: Peripheral IV Urinary Catheter: Yes Medications and DC Order Prescriptions: Continued aspirin 81 mg Tablet,Chewable 81 mg PO DAILY digoxin [Digitek] 125 mcg (0.125 mg) Tablet 0.125 mg PO DAILY@1600 Qty: 30 0RF sennosides-docusate sodium [Senna Plus] 8.6-50 mg Tablet 1 tab-cap PO QDL PRN (Reason: Constipation) dextrose [Glucose Gel] 40 % Gel 1 ea PO DIRECTED PRN (Reason: Hypoglycemia) Rx Instructions: 15 GRAM/TUBE, NEEDED. magnesium hydroxide [Milk of Magnesia] 400 mg/5 mL Suspension 30 ml PO DAILY PRN (Reason: Constipation) bisacodyl 10 mg Suppository 10 mg SC DAILY PRN (Reason: Constipation) Fleet Enema 19-7 gram/118 mL Enema 118 ml SC DAILY PRN (Reason: Constipation) polyethylene glycol 3350 [Miralax] 17 gram/dose Powder 17 g PO QDL PRN (Reason: Constipation) ondansetron [Zofran ODT] 4 mg Tablet,Disintegrating 4 mg PO Q4H PRN (Reason: NAUSEA/VOMITING) metoprolol tartrate 50 mg tablet 25 mg PO Q12H Held acetaminophen [Tylenol] 325 mg Tablet 650 mg PO Q4H PRN (Reason: Pain) Hold Instructions: hold until LFTs normalize atorvastatin 20 mg Tablet 20 mg PO HS Hold Instructions: hold until LFTs normalize Admission Data Admit Date/Time: 06/28/22 00:36 Attending Provider: Sivakumar Oconnor Admit Provider: Yusuf Kwan Primary Care Provider: [facility] Other Providers: Yusuf Kwan ; Mariel Bernal ; Sivakumar Oconnor ; Orlin Williamson ; Elliott Mazariegos ; Bari Scott ; John Alamo ; Malina Avelar ; Halima Lyon ; Seng Donnelly ; Scot Flannery ; Jena Heath ; Tio Mart ; Angi Fuchs ; Mari Santos ; Tripp Apodaca ; John Suresh ; Rebekah Ramos ; Mariel Cuellar ; Marilu Fernandez ; Yadira Lizarraga ; Gaurav Reyes ; Sivakumar Varghese ; Oxana Hein ; Freddy Spain ; Chase Dyson ; Gabriella Dutton ; Dominic Vaughn ; Crispin Giron ; Marina Sterling ; Dm Olsen ; Meena Brannon ; Mendoza Barksdale ; Mehrdad Whaley ; Kya Brizuela ; Alberto Pace ; Orlin Escobar Coding Level of Care Code 99169 INP/OBS DISCH >30 MIN Diagnoses Ischemic foot I99.8 Atrial fibrillation I48.91 Arterial occlusive disease I70.90 Acute metabolic encephalopathy G93.41 History of CVA with residual deficit I69.30 Valvular heart disease I38 Cerebrovascular accident (CVA) with intracranial hemorrhage I61.9 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
[2022-06-28] MEDS ORDERED: MoRPHine SULFATE 2 MG/ML CARP IV PRN (19:37)
[2022-06-28] MEDS: HEPARIN SODIUM/DEXTROSE 25,000 UNITS/500 ML BAG IV SCH (22:49)
--- NOTE | 2022-06-29 00:18 | Electrocardiogram Report ---
Test Reason : Blood Pressure : / mmHG Vent. Rate : 092 BPM Atrial Rate : 000 BPM P-R Int : 000 ms QRS Dur : 088 ms QT Int : 352 ms P-R-T Axes : 000 030 223 degrees QTc Int : 435 ms Atrial fibrillation Abnormal ECG When compared with ECG of 16-JUN-2022 11:40, ST more depressed Lateral leads T wave inversion more evident in Inferolateral leads Confirmed by Layo Ley ([id number]) on 06/29/2022 12:18:27 AM Referred By: [facility] Confirmed By:Layo Ley
[2022-06-29] MEDS: SODIUM CHLORIDE 0.9% 1000ML 1,000 ML IV SCH (03:30)
[2022-06-29 07:45] LABS: Basophils # (auto) 0.05 K/uL (0-0.2); Basophils % (auto) 0.5 %; Eosinophils # (auto) 0.17 K/uL (0-0.50); Eosinophils % (auto) 1.7 %; Hematocrit (blood only) 33.4 % (42.0-52.0); Hemoglobin 11.4 g/dl (14.0-18.0); Immature Granulocytes # (auto) 0.05 K/uL (0.01-0.20); Immature Granulocytes % (auto) 0.5 %; Lymphocytes # (auto) 1.03 K/uL (1.2-3.4); Lymphocytes % (auto) 10.1 %; Mean Corpuscular Hemoglobin 30.7 pg (25.0-34.0); Mean Corpuscular Hgb Conc 34.1 g/dL (32.0-36.0); Mean Platelet Volume 10.1 fL (9.4-12.4); Monocytes # (auto) 0.94 K/uL (0.11-0.59); Monocytes % (auto) 9.3 %; Neutrophils # (auto) 7.91 K/uL (1.40-6.50); Neutrophils % (auto) 77.9 %; Platelet Count 310 K/uL (130-400); RDW Coefficient of Variation 14.2 % (11.5-14.5); RDW Standard Deviation 46.5 fL (36.4-46.3); Red Blood Count 3.71 M/uL (4.70-6.10); White Blood Count 10.15 K/ul (4.8-10.8)
[2022-06-29 07:58] LABS: Albumin Globulin Ratio 0.9 (0.9-2); Albumin Level 2.6 gm/dl (3.4-5.0); BUN Creatinine Ratio 32.6 (10-20); Bilirubin,Total 1.4 mg/dl (0.2-1.0); Calcium 7.9 mg/dl (8.6-10.3); Creatinine Clr Calc Pharmacy 69.6 ml/min; Est GFR (African American) 94.3 ml/min; Est GFR (Non-African American) 81.3 ml/min; Globulin 2.8 gm/dl (2.5-4.0); Potassium 3.7 mmol/L (3.5-5.1); Total Protein 5.4 gm/dl (6.0-8.3)
[2022-06-29] MEDS: METOPROLOL TARTRATE 25 MG TAB PO SCH (08:09)
--- NOTE | 2022-06-29 08:14 | Communication Note ---
Date of Service: June 29, 2022 Saw patient about 0730 this am. Transport to [facility] coming about 0800. Patient was lying in bed with eyes open. He could not tell me why he was here. He thought he was back [place] the [facility]. He c/o L foot pain / "it's chilly." Denied dyspnea, chest pain, abd pain. Overnight on tele - a.fib, rates <100. VSS. Lay in place with adequate UOP. Labs last 24 hours including this am - Laboratory Results - last 24 hr 06/28/22 06/28/22 06/28/22 07:38 07:38 14:58 WBC RBC Hgb Hct MCV MCH MCHC RDW Std Deviation RDW Coeff of Gloria Plt Count MPV Immature Gran % (Auto) Neut % (Auto) Lymph % (Auto) Fisher % (Auto) Eos % (Auto) Baso % (Auto) Neut # (Auto) Lymph # (Auto) Fisher # (Auto) Eos # (Auto) Baso # (Auto) Immature Gran # (Auto) PT 13.2 H INR 1.2 H APTT 36.8 H 41.4 H* PTT Ratio 1.3 1.5 VBG pH VBG pCO2 VBG pO2 VBG HCO3 VBG O2 Saturation VBG Base Excess Sodium 139 Potassium 3.9 Chloride 106 Carbon Dioxide 24 Anion Gap 9 BUN 37 H Creatinine 1.04 Est Cr Clr Drug Dosing 57.5 Est GFR ( Amer) 77.7 Est GFR (Non-Af Amer) 67.0 BUN/Creatinine Ratio 35.6 H Glucose 120 H Lactate Calcium 8.3 L Total Bilirubin 2.0 H AST 225 H ALT 131 H Alkaline Phosphatase 104 Ammonia Total Protein 6.4 Albumin 3.1 L Globulin 3.3 Albumin/Globulin Ratio 0.9 Digoxin 06/28/22 06/28/22 06/28/22 17:48 17:48 17:48 WBC RBC Hgb Hct MCV MCH MCHC RDW Std Deviation RDW Coeff of Gloria Plt Count MPV Immature Gran % (Auto) Neut % (Auto) Lymph % (Auto) Fisher % (Auto) Eos % (Auto) Baso % (Auto) Neut # (Auto) Lymph # (Auto) Fisher # (Auto) Eos # (Auto) Baso # (Auto) Immature Gran # (Auto) PT INR APTT PTT Ratio VBG pH VBG pCO2 VBG pO2 VBG HCO3 VBG O2 Saturation VBG Base Excess Sodium 139 Potassium 4.1 Chloride 108 H Carbon Dioxide 22 Anion Gap 9 BUN 33 H Creatinine 0.97 Est Cr Clr Drug Dosing 61.7 Est GFR ( Amer) 84.5 Est GFR (Non-Af Amer) 72.9 BUN/Creatinine Ratio 34.0 H Glucose 121 H Lactate Cancelled Calcium 7.9 L Total Bilirubin 1.7 H AST 189 H ALT 113 H Alkaline Phosphatase 93 Ammonia 29.0 Total Protein 5.9 L Albumin 2.9 L Globulin 3.0 Albumin/Globulin Ratio 1.0 Digoxin 06/28/22 06/28/22 06/28/22 17:48 19:03 20:51 WBC RBC Hgb Hct MCV MCH MCHC RDW Std Deviation RDW Coeff of Gloria Plt Count MPV Immature Gran % (Auto) Neut % (Auto) Lymph % (Auto) Fisher % (Auto) Eos % (Auto) Baso % (Auto) Neut # (Auto) Lymph # (Auto) Fisher # (Auto) Eos # (Auto) Baso # (Auto) Immature Gran # (Auto) PT INR APTT PTT Ratio VBG pH 7.47 H VBG pCO2 31 L VBG pO2 72 VBG HCO3 23 VBG O2 Saturation 96.7 VBG Base Excess -0.2 Sodium Potassium Chloride Carbon Dioxide Anion Gap BUN Creatinine Est Cr Clr Drug Dosing Est GFR ( Amer) Est GFR (Non-Af Amer) BUN/Creatinine Ratio Glucose Lactate 1.3 Calcium Total Bilirubin AST ALT Alkaline Phosphatase Ammonia Total Protein Albumin Globulin Albumin/Globulin Ratio Digoxin 0.7 L 06/29/22 06/29/22 06/29/22 06:58 06:58 06:58 WBC 10.15 RBC 3.71 L Hgb 11.4 L Hct 33.4 L MCV 90.0 MCH 30.7 MCHC 34.1 RDW Std Deviation 46.5 H RDW Coeff of Gloria 14.2 Plt Count 310 MPV 10.1 Immature Gran % (Auto) 0.5 Neut % (Auto) 77.9 Lymph % (Auto) 10.1 Fisher % (Auto) 9.3 Eos % (Auto) 1.7 Baso % (Auto) 0.5 Neut # (Auto) 7.91 H Lymph # (Auto) 1.03 L Fisher # (Auto) 0.94 H Eos # (Auto) 0.17 Baso # (Auto) 0.05 Immature Gran # (Auto) 0.05 PT INR APTT Pending PTT Ratio Pending VBG pH VBG pCO2 VBG pO2 VBG HCO3 VBG O2 Saturation VBG Base Excess Sodium 139 Potassium 3.7 Chloride 109 H Carbon Dioxide 23 Anion Gap 7 BUN 28 H Creatinine 0.86 Est Cr Clr Drug Dosing 69.6 Est GFR ( Amer) 94.3 Est GFR (Non-Af Amer) 81.3 BUN/Creatinine Ratio 32.6 H Glucose 101 H Lactate Calcium 7.9 L Total Bilirubin 1.4 H AST 170 H ALT 99 H Alkaline Phosphatase 85 Ammonia Total Protein 5.4 L Albumin 2.6 L Globulin 2.8 Albumin/Globulin Ratio 0.9 Digoxin vitals - Vital Signs Temp Pulse Pulse Pulse Resp BP Pulse Ox 06/29/22 07:48 77 06/29/22 07:40 36.6 C 80 18 165/82 H 97 06/29/22 03:31 36.7 C 80 22 145/64 H 95 06/28/22 23:00 36.4 C L 99 H 20 134/88 96 06/28/22 19:00 36.4 C L 91 H 18 131/84 96 06/28/22 17:52 85 06/28/22 12:04 37.2 C 88 16 158/82 H 96 06/28/22 09:36 128 H 06/28/22 08:21 36.7 C 59 L 16 135/79 98 O2 Del Method 06/29/22 07:48 06/29/22 07:40 Room Air 06/29/22 03:31 Room Air 06/28/22 23:00 Room Air 06/28/22 19:00 Room Air 06/28/22 17:52 06/28/22 12:04 Room Air 06/28/22 09:36 06/28/22 08:21 Room Air Intake and Output 06/28/22 06/29/22 06/29/22 22:59 06:59 14:59 Intake Total 718.5 / 2345.666 983.333 / 2345.666 187.733 / 187.733 Output Total 600 / 900 Balance 718.5 / 1445.666 383.333 / 1445.666 187.733 / 187.733 Intake: IV 718.5 / 2345.666 983.333 / 2345.666 187.733 / 187.733 Heparin Sodium/Dextrose 25,000 313.5 / 419.833 187.733 / 187.733 units In 500 ml @ 1,100 UNITS/ HR 22 mls/hr IV .[id number] ON LICENSE OF [facility] Rx #:[id number] Sodium Chloride 0.9% 1000ML 1, 405 / 1925.833 983.333 / 1925.833 000 ml @ 100 mls/hr IV .Q10H ON LICENSE OF [facility] Rx#:[id number] Output: Urine Amount (Catheter) 600 / 900 Lay/Indwelling 600 / 900 Other: Other Intake Source NPO Exam - gen - lying flat in bed w/o distress, confused mouth - MM more moist today heart - irregular, s1 s2, 2/6 systolic murmur LLSB lungs - CTA b/l abd - soft NT ND BS+ ext - no edema vascular - pulses L foot similar to yesterday - nonpalpable DP and pos tib pulses L foot, popliteal on L 1-2+; there is now black gangrenous skin on the L great toe; cap refill > sec; foot is cold; foot is tender to touch right foot pulses same as yesterday A/P: 1. severe PAD with resulting ischemic L foot 2. a.fib not on chronic anticoagulation 3. abnormal LFTs / acute hepatitis - resolving 4. acute metabolic encephalopathy - more awake today, but still very confused labs/vitals acceptable for transfer to [facility] asked nursing to give morphine 2mg x 1 prior to transfer asked nursing to give AM metoprolol prior to transfer cont IV fluids and IV heparin drip on transfer Sivakumar Oconnor MD
[2022-06-29 08:24] LABS: Partial Thromboplastin Ratio 1.6
[2022-06-29 08:47] LABS: Partial Thromboplastin Time 44.3 Seconds (21.0-31.0)
[2022-06-29] MEDS ORDERED: DIGOXIN 0.125 MG TAB PO SCH (16:00)
== END 2022-06-29 08:10 | disposition short-term general hospital (02) ==
LOC: ED 16:47 → 2N 16:47 → SUATTDRO 06-28 00:36 → 2N 06-28 02:29

== ENCOUNTER 2022-07-24 06:06 | Observation (INO) ==
--- NOTE | 2022-07-24 07:22 | Emergency Department Note ---
History of Present Illness General Chief complaint: Fall Stated complaint: Fall, Head Injury Time Seen by Provider: 07/24/22 07:10 Source: patient, EMS, RN notes reviewed, old records reviewed (I have reviewed records from [facility]) and other ([facility] guards) Mode of arrival: ambulatory Limitations: no limitations History of Present Illness This patient comes in as described above. He is a inmate at [facility] he had a CVA with baseline left-sided weakness apparently does not ambulate he fell and complains of mostly low back pain. He apparently does have low back pain to begin with. He also has dementia and multiple other medical problems including A-fib and arterial disease. It is uncertain whether he passed out he denies any but I am not sure about how reliable his he is. Denies chest pain or shortness of breath. Home Medications Medication Instructions Recorded Confirmed Type aspirin 81 mg chewable tablet 81 mg PO DAILY 01/21/20 06/27/22 History digoxin 125 mcg (0.125 mg) tablet 0.125 mg PO DAILY@1600 #30 tabs 06/21/22 06/27/22 Rx (Digitek) acetaminophen 325 mg tablet 650 mg PO Q4H PRN Pain 06/27/22 06/27/22 History (Tylenol) atorvastatin 20 mg tablet 20 mg PO HS 06/27/22 06/27/22 History bisacodyl 10 mg rectal suppository 10 mg FL DAILY PRN Constipation 06/27/22 06/27/22 History dextrose 40 % oral gel (Glucose 1 ea PO DIRECTED PRN 06/27/22 06/27/22 History Gel) Hypoglycemia magnesium hydroxide 400 mg/5 mL 30 ml PO DAILY PRN Constipation 06/27/22 06/27/22 History oral suspension (Milk of Magnesia) metoprolol tartrate 50 mg tablet 25 mg PO Q12H 06/27/22 06/27/22 History ondansetron 4 mg disintegrating 4 mg PO Q4H PRN NAUSEA/VOMITING 06/27/22 06/27/22 History tablet polyethylene glycol 3350 17 17 g PO QDL PRN Constipation 06/27/22 06/27/22 History gram/dose oral powder (Miralax) sennosides 8.6 mg-docusate sodium 1 tab-cap PO QDL PRN Constipation 06/27/22 06/27/22 History 50 mg tablet (Senna Plus) sodium phosphates 19 gram-7 118 ml FL DAILY PRN Constipation 06/27/22 06/27/22 History gram/118 mL enema (Fleet Enema) Allergies Allergy/AdvReac Type Severity Reaction Status Date / Time No Known Allergies Allergy Verified 06/27/22 17:42 Past Med/Surg History Medical History (Updated 07/24/22 @ 14:31 by Juan Guillermo MD) Acute heart failure with preserved ejection fraction (HFpEF) Aortic valve disorder Atrial fibrillation Atrial fibrillation and flutter Elevated d-dimer Elevated troponin Hypertension Hypoxia Mitral regurgitation Other nonrheumatic aortic valve disorders PAD (peripheral artery disease) Renal insufficiency Tricuspid regurgitation Social History Smoking Status: Unknown if ever smoked Tobacco Type: Cigarettes Second Hand Exposure: No; Do You Dip or Chew Tobacco: No; Hx Alcohol Use: No Hx Substance Use: No Preferred Language: Occitan Communication Ability: Effective Communication Ability Comment: tries to follow commands Tapper Operator Required: No Beliefs That Will Affect Care: None Current Living Situation: Other Current Living Situation Comment: correctional facility Feels Safe at Home: Yes Assistive Devices: None Review of Systems A total of 10 systems reviewed and were otherwise negative Physical Exam Vital Signs Vital Signs - 24 hr 07/24/22 06:16 07/24/22 06:28 07/24/22 07:24 Temperature Source Axillary Pulse Rate 65 88 Pulse Rate from SpO2 Sensor Respiratory Rate 16 Respiratory Effort / Characteristics Non-Labored Spontaneous Respiratory Depth Normal Respiratory Pattern Regular Blood Pressure 150/82 H Blood Pressure Mean 104 Pulse Oximetry 96 Oxygen Delivery Method Room Air Sepsis Recent Fever Within 48 Hours No Sepsis New/Unexplained Change in Mental Status No Sepsis Action Taken by Nursing No Action Required 07/24/22 06:13 07/24/22 06:13 07/24/22 07:00 Temperature Source Pulse Rate 104 H Pulse Rate from SpO2 Sensor 129 H Respiratory Rate 29 H 24 Respiratory Effort / Characteristics Respiratory Depth Respiratory Pattern Blood Pressure 150/82 H Blood Pressure Mean 120 Pulse Oximetry 98 Oxygen Delivery Method Sepsis Recent Fever Within 48 Hours Sepsis New/Unexplained Change in Mental Status Sepsis Action Taken by Nursing 07/24/22 07:20 07/24/22 08:00 07/24/22 08:00 Temperature Source Pulse Rate 127 H 126 H Pulse Rate from SpO2 Sensor Respiratory Rate 24 22 Respiratory Effort / Characteristics Respiratory Depth Respiratory Pattern Blood Pressure 128/94 Blood Pressure Mean 106 Pulse Oximetry 98 97 Oxygen Delivery Method Sepsis Recent Fever Within 48 Hours Sepsis New/Unexplained Change in Mental Status Sepsis Action Taken by Nursing 07/24/22 08:31 07/24/22 08:31 07/24/22 10:25 Temperature Source Pulse Rate 123 H 99 H Pulse Rate from SpO2 Sensor Respiratory Rate 24 Respiratory Effort / Characteristics Respiratory Depth Respiratory Pattern Blood Pressure 118/72 Blood Pressure Mean 84 Pulse Oximetry 92 Oxygen Delivery Method Sepsis Recent Fever Within 48 Hours Sepsis New/Unexplained Change in Mental Status Sepsis Action Taken by Nursing 07/24/22 09:00 07/24/22 09:01 07/24/22 09:01 Temperature Source Pulse Rate 127 H 123 H Pulse Rate from SpO2 Sensor Respiratory Rate 35 H 17 Respiratory Effort / Characteristics Respiratory Depth Respiratory Pattern Blood Pressure 120/85 Blood Pressure Mean 94 Pulse Oximetry 92 84 L Oxygen Delivery Method Sepsis Recent Fever Within 48 Hours Sepsis New/Unexplained Change in Mental Status Sepsis Action Taken by Nursing 07/24/22 09:30 07/24/22 09:30 07/24/22 10:00 Temperature Source Pulse Rate 104 H 103 H Pulse Rate from SpO2 Sensor 106 H 104 H Respiratory Rate 22 29 H Respiratory Effort / Characteristics Respiratory Depth Respiratory Pattern Blood Pressure 109/69 Blood Pressure Mean 70 Pulse Oximetry 93 100 Oxygen Delivery Method Sepsis Recent Fever Within 48 Hours Sepsis New/Unexplained Change in Mental Status Sepsis Action Taken by Nursing 07/24/22 10:01 07/24/22 10:01 07/24/22 10:30 Temperature Source Pulse Rate 112 H 99 H Pulse Rate from SpO2 Sensor 95 H 92 H Respiratory Rate 35 H 21 Respiratory Effort / Characteristics Respiratory Depth Respiratory Pattern Blood Pressure 115/63 Blood Pressure Mean 76 Pulse Oximetry 97 92 Oxygen Delivery Method Sepsis Recent Fever Within 48 Hours Sepsis New/Unexplained Change in Mental Status Sepsis Action Taken by Nursing 07/24/22 10:30 07/24/22 11:00 07/24/22 11:00 Temperature Source Pulse Rate 97 H Pulse Rate from SpO2 Sensor 92 H Respiratory Rate 17 Respiratory Effort / Characteristics Respiratory Depth Respiratory Pattern Blood Pressure 108/68 97/60 L Blood Pressure Mean 90 69 Pulse Oximetry 96 Oxygen Delivery Method Sepsis Recent Fever Within 48 Hours Sepsis New/Unexplained Change in Mental Status Sepsis Action Taken by Nursing 07/24/22 11:30 07/24/22 11:30 Temperature Source Pulse Rate 87 Pulse Rate from SpO2 Sensor 88 Respiratory Rate 21 Respiratory Effort / Characteristics Respiratory Depth Respiratory Pattern Blood Pressure 113/68 Blood Pressure Mean 91 Pulse Oximetry 94 Oxygen Delivery Method Sepsis Recent Fever Within 48 Hours Sepsis New/Unexplained Change in Mental Status Sepsis Action Taken by Nursing General: Well developed well nourished chronically ill-appearing older male who is boarded and collared and appears to be complaining of pain in his back but in no acute respiratory distress, breathing comfortably on room air. Normal speech HEENT: Normal cephalic atraumatic. Pupils are equal round and reactive to light. Extraocular movements are intact. Oropharynx is pink with moist mucous membranes. No swelling of the mouth lips or tongue. Neck: Supple with a midline trachea. No meningeal signs or stiffness, no JVD or bruits. No Stridor. Chest: Clear to auscultation bilaterally. No wheezes or rhonchi. No increased work of breathing. Heart: Tachycardic and irregular consistent with baseline A-fib without murmurs or gallops. Abdomen: Soft nontender, nondistended without rebound guarding or rigidity. Extremities: No cyanosis clubbing or edema. No calf tenderness or assymetry Spine/Back. Non tender to palpation. No CVA tenderness Skin: Good turgor without rashes. Neurologic exam: Cranial nerves two through 12 are intact. He has baseline weakness in the left leg and a bandage on the heel Course Administered Medications Discontinued Medications Sodium Chloride (Nss 1000ml) 500 mls @ 999 mls/hr IV .Q31M ONE Stop: 07/24/22 10:53 Last Admin: 07/24/22 11:28 Dose: 999 mls/hr Documented By: HS Digoxin 125 mcg/ Syringe 10 mls @ 2 mls/min IV NOW STA Stop: 07/24/22 10:36 Last Admin: 07/24/22 11:25 Dose: Not Given Documented By: HS Metoprolol Tartrate (Metoprolol Tartrate 50 Mg Tab) 50 mg PO NOW STA Stop: 07/24/22 11:10 Last Admin: 07/24/22 11:27 Dose: 50 mg Documented By: HS Morphine Sulfate (Morphine Sulfate 2 Mg/Ml Carp) 2 mg IV NOW STA Stop: 07/24/22 08:08 Last Admin: 07/24/22 08:12 Dose: 2 mg Documented By: HS Ondansetron HCl (Ondansetron Inj 2 Mg/Ml 2 Ml Vial) 4 mg IV NOW STA Stop: 07/24/22 08:08 Last Admin: 07/24/22 08:12 Dose: 4 mg Documented By: HS Medical Decision Making Differential Diagnosis Traumatic injuries, CVA, arrhythmia, syncope, electrolyte or metabolic abnormality, infection, anemia Medical Records Attestation: I reviewed the patient's medical records. Home Medications Current Medication List: was personally reviewed by me Laboratory Data Attestation: I reviewed the patient's lab results. 07/24/22 07:21 07/24/22 07:21 Lab Results 07/24/22 07/24/22 07/24/22 Range/Units 07:21 07:21 07:21 WBC 15.94 H (4.8-10.8) K/ul RBC 4.10 L (4.70-6.10) M/uL Hgb 12.1 L (14.0-18.0) g/dl Hct 35.6 L (42.0-52.0) % MCV 86.8 (80.0-100.0) fL MCH 29.5 (25.0-34.0) pg MCHC 34.0 (32.0-36.0) g/dL RDW Std Deviation 44.8 (36.4-46.3) fL RDW Coeff of Gloria 14.3 (11.5-14.5) % Plt Count 314 (130-400) K/uL MPV 9.9 (9.4-12.4) fL Immature Gran % (Auto) 0.8 % Neut % (Auto) 81.5 % Lymph % (Auto) 7.5 % Navarro % (Auto) 10.0 % Eos % (Auto) 0.1 % Baso % (Auto) 0.1 % Neut # (Auto) 13.00 H (1.40-6.50) K/uL Lymph # (Auto) 1.19 L (1.2-3.4) K/uL Navarro # (Auto) 1.60 H (0.11-0.59) K/uL Eos # (Auto) 0.01 (0-0.50) K/uL Baso # (Auto) 0.02 (0-0.2) K/uL Immature Gran # (Auto) 0.12 (0.01-0.20) K/uL PT Cancelled INR Cancelled APTT Cancelled PTT Ratio Cancelled Sodium 133 L (136-145) mmol/L Potassium 3.9 (3.5-5.1) mmol/L Chloride 95 L (98-107) mmol/L Carbon Dioxide 24 (21-32) mmol/L Anion Gap 14 H (3-11) BUN 24 H (6-23) mg/dl Creatinine 0.90 (0.6-1.4) mg/dl Est Cr Clr Drug Dosing 68.6 ml/min Est GFR ( Amer) 92.5 ml/min Est GFR (Non-Af Amer) 79.8 ml/min BUN/Creatinine Ratio 26.7 H (10-20) Glucose 120 H (70-99(Fasting)) mg/dl Calcium 8.9 (8.6-10.3) mg/dl Total Bilirubin 1.6 H (0.2-1.0) mg/dl AST 46 H (13-39) U/L ALT 28 (7-52) U/L Alkaline Phosphatase 89 (34-104) U/L Troponin I High Sens 24.5 H (0-20) pg/ml Total Protein 7.1 (6.0-8.3) gm/dl Albumin 3.2 L (3.4-5.0) gm/dl Globulin 3.9 (2.5-4.0) gm/dl Albumin/Globulin Ratio 0.8 L (0.9-2) Digoxin (0.8-2.0) ng/ml SARS-CoV-2, RNA, NAAT (NEGATIVE) 07/24/22 07/24/22 07/24/22 Range/Units 08:04 08:38 09:43 WBC (4.8-10.8) K/ul RBC (4.70-6.10) M/uL Hgb (14.0-18.0) g/dl Hct (42.0-52.0) % MCV (80.0-100.0) fL MCH (25.0-34.0) pg MCHC (32.0-36.0) g/dL RDW Std Deviation (36.4-46.3) fL RDW Coeff of Gloria (11.5-14.5) % Plt Count (130-400) K/uL MPV (9.4-12.4) fL Immature Gran % (Auto) % Neut % (Auto) % Lymph % (Auto) % Navarro % (Auto) % Eos % (Auto) % Baso % (Auto) % Neut # (Auto) (1.40-6.50) K/uL Lymph # (Auto) (1.2-3.4) K/uL Navarro # (Auto) (0.11-0.59) K/uL Eos # (Auto) (0-0.50) K/uL Baso # (Auto) (0-0.2) K/uL Immature Gran # (Auto) (0.01-0.20) K/uL PT 35.4 H INR 3.5 H APTT 37.8 H PTT Ratio 1.3 Sodium (136-145) mmol/L Potassium (3.5-5.1) mmol/L Chloride (98-107) mmol/L Carbon Dioxide (21-32) mmol/L Anion Gap (3-11) BUN (6-23) mg/dl Creatinine (0.6-1.4) mg/dl Est Cr Clr Drug Dosing ml/min Est GFR ( Amer) ml/min Est GFR (Non-Af Amer) ml/min BUN/Creatinine Ratio (10-20) Glucose (70-99(Fasting)) mg/dl Calcium (8.6-10.3) mg/dl Total Bilirubin (0.2-1.0) mg/dl AST (13-39) U/L ALT (7-52) U/L Alkaline Phosphatase (34-104) U/L Troponin I High Sens 28.7 H (0-20) pg/ml Total Protein (6.0-8.3) gm/dl Albumin (3.4-5.0) gm/dl Globulin (2.5-4.0) gm/dl Albumin/Globulin Ratio (0.9-2) Digoxin < 0.3 L (0.8-2.0) ng/ml SARS-CoV-2, RNA, NAAT (NEGATIVE) 07/24/22 Range/Units 11:27 WBC (4.8-10.8) K/ul RBC (4.70-6.10) M/uL Hgb (14.0-18.0) g/dl Hct (42.0-52.0) % MCV (80.0-100.0) fL MCH (25.0-34.0) pg MCHC (32.0-36.0) g/dL RDW Std Deviation (36.4-46.3) fL RDW Coeff of Gloria (11.5-14.5) % Plt Count (130-400) K/uL MPV (9.4-12.4) fL Immature Gran % (Auto) % Neut % (Auto) % Lymph % (Auto) % Navarro % (Auto) % Eos % (Auto) % Baso % (Auto) % Neut # (Auto) (1.40-6.50) K/uL Lymph # (Auto) (1.2-3.4) K/uL Navarro # (Auto) (0.11-0.59) K/uL Eos # (Auto) (0-0.50) K/uL Baso # (Auto) (0-0.2) K/uL Immature Gran # (Auto) (0.01-0.20) K/uL PT INR APTT PTT Ratio Sodium (136-145) mmol/L Potassium (3.5-5.1) mmol/L Chloride (98-107) mmol/L Carbon Dioxide (21-32) mmol/L Anion Gap (3-11) BUN (6-23) mg/dl Creatinine (0.6-1.4) mg/dl Est Cr Clr Drug Dosing ml/min Est GFR ( Amer) ml/min Est GFR (Non-Af Amer) ml/min BUN/Creatinine Ratio (10-20) Glucose (70-99(Fasting)) mg/dl Calcium (8.6-10.3) mg/dl Total Bilirubin (0.2-1.0) mg/dl AST (13-39) U/L ALT (7-52) U/L Alkaline Phosphatase (34-104) U/L Troponin I High Sens (0-20) pg/ml Total Protein (6.0-8.3) gm/dl Albumin (3.4-5.0) gm/dl Globulin (2.5-4.0) gm/dl Albumin/Globulin Ratio (0.9-2) Digoxin (0.8-2.0) ng/ml SARS-CoV-2, RNA, NAAT NEGATIVE (NEGATIVE) Imaging Data Attestation: I personally reviewed and interpreted this imaging study as follows: My Impression: Chest x-rayno acute infiltrate, failure, pneumothorax seen. CT of the headno hemorrhage or mass effect seen Radiologist's Impression: Cervical Spine CT 07/24/22 06:18 CT cervical spine wo con CLINICAL HISTORY: fall TECHNIQUE: Multidetector row helical CT of the cervical spine was performed without administration of intravenous contrast. Coronal and sagittal reformations were obtained. Automated dose lowering techniques and/or adjustment according to patient size were utilized for this exam. Comparison: None available at the time of this dictation. FINDINGS: No acute fractures or subluxations are identified. Degenerative changes are seen in the visualized spine. The alignment is normal. Nuchal ligament calcification and calcification of the transverse ligament noted. IMPRESSION: No evidence of acute bony injury. ACT 112: Negative or not required by law. Electronically signed by: Niko Robison M.D. 07/24/2022 7:[address] 07/24/22 06:18 CT SCAN OF THE BRAIN WITHOUT IV CONTRAST CLINICAL HISTORY: Fall. Head injury. COMPARISON STUDY: CT of the brain dated 06/28/2022. TECHNIQUE: Unenhanced axial CT scan of the brain is performed from the vertex to the skull base. A dose lowering technique was utilized adhering to the principles of ALARA. FINDINGS: Brain parenchyma: The examination is compromised by motion artifact. Right MCA territory encephalomalacia is consistent with a previous infarct, as are foci of left frontal and left parietal encephalomalacia. There is age-related involutional change noting moderate subcortical and periventricular microangiopathic disease. There is no hemorrhage, mass effect, or evidence of acute territorial ischemia by CT criteria. Calderon-white matter differentiation is preserved. No extra-axial fluid collection is seen. Ventricles, sulci, cisterns: Prominent secondary to involutional change. Intracranial vasculature: There is atherosclerotic calcification of the cavernous carotid and vertebral arteries. Calvarium: The skeletal structures are osteopenic. No depressed calvarial fracture is seen. Soft tissues: There is a small frontal scalp contusion. Sinuses and mastoids: The visualized paranasal sinuses are clear. The mastoid air cells are well pneumatized. Orbits: The bony orbits are grossly intact. IMPRESSION: 1. There is no hemorrhage, mass effect, or evidence of acute territorial ischemia by CT criteria noting a motion compromised examination. 2. Prior infarcts as above. ACT 112: Negative or not required by law. Electronically signed by: John Perla M.D. 07/24/2022 7:51 AM Chest X-Ray 07/24/22 06:19 SINGLE VIEW CHEST CLINICAL HISTORY: Atypical chest pain. FINDINGS: An AP, portable, supine chest radiograph is compared to study dated 06/27/2022. A trauma board is in place. The heart is enlarged noting atherosclerotic calcification of the thoracic aorta. The pulmonary vasculature is nondistended congested. Chronic interstitial thickening is similar to previous. There is bibasilar scarring/atelectasis. The lungs and pleural spaces are otherwise clear. No pneumothorax is seen. The skeletal structures are osteopenic. The bony thorax is grossly intact. IMPRESSION: Cardiomegaly with no acute cardiopulmonary abnormality identified. ACT 112: Negative or not required by law. Electronically signed by: John Perla M.D. 07/24/2022 8:28 AM Abdomen/Pelvis CT 07/24/22 07:18 CT abd pelvis wo con CLINICAL HISTORY: fall TECHNIQUE: Helical axial images of the abdomen and pelvis were obtained. Automated dose lowering techniques and/or adjustment according to patient size were utilized for this exam. This exam was performed without intravenous contrast. COMPARISON: None available at the time of this dictation. FINDINGS: Lower chest: No acute abnormality. Liver: Unremarkable. No focal lesions are seen. Gallbladder and biliary tree: No calcified gallstones. Normal caliber wall. No intra- or extrahepatic biliary ductal dilation. Pancreas: Unremarkable, no focal lesions. Spleen: Unremarkable. Adrenals: Unremarkable. Kidneys and ureters: Exophytic renal cysts are seen bilaterally. Bladder: Limited evaluation due to underdistention. Reproductive organs: Unremarkable. Bowel: Diverticulosis is seen without evidence of diverticulitis. The appendix is normal. Lymph nodes Retroperitoneal: Unremarkable. Pelvic: Unremarkable. Mesenteric: Unremarkable. Peritoneum: Normal. Vessels: Atherosclerotic calcifications are seen. Abdominal wall: Limitations are noted in the right musculature. Bones: Degenerative changes in the visualized spine. IMPRESSION: No acute abnormalities are seen. Additional findings are as above. ACT 112: Negative or not required by law. Electronically signed by: Niko Robison M.D. 07/24/2022 7:[address] 07/24/22 07:18 CT SCAN OF THE LUMBAR SPINE WITHOUT IV CONTRAST CLINICAL HISTORY: Fall. COMPARISON STUDY: Radiographs of the lumbar spine dated 06/18/2022. Abdominal CT dated 06/27/2022. TECHNIQUE: CT scan of the lumbar spine is performed from the lower thoracic spine to the sacrum. Images are reviewed in the axial, sagittal, and coronal planes. IV contrast was not administered for this examination. A dose lowering technique was utilized adhering to the principles of ALARA. CT DOSE: 2676.39 mGy.cm FINDINGS: The skeletal structures are osteopenic. There is no evidence of acute fracture or malalignment involving the lumbar spine. Vertebral body height and alignment are maintained. Anterior and lateral marginal osteophytes are seen throughout. The transverse and spinous processes are intact. There is no spondylolysis. No lytic or blastic lesion is seen. [id number] disc space narrowing is seen at all lumbar levels with associated posterior disc osteophyte complexes. There is at least moderate central canal stenosis at L4-L5. Facet arthropathy is noted in the lower lumbar region. Imaged portions of the sacrum and bony pelvis appear intact. There is fatty atrophy of the paraspinous musculature. The paraspinous soft tissues are otherwise normal in appearance. There is advanced atherosclerotic calcification of the normal caliber abdominal aorta. No retroperitoneal lymphadenopathy is seen. A 3.1 cm cyst is incidentally noted in the left kidney. IMPRESSION: 1. There is no evidence of fracture or malalignment involving the lumbar spine. 2. Osteopenia and spondylotic change as above. ACT 112: Negative or not required by law. Dictated: 07/24/2022 7:52 AM Transcribed: 07/24/2022 8:56 AM Jean Paul [id number] [email or web address] Electronically signed by: John Perla M.D. 07/24/2022 9:11 AM Femur X-Ray 07/24/22 10:48 XR femur RT 2V routine CLINICAL HISTORY: unwitnessed fall, leg pain. Pelvis no fxr on CT TECHNIQUE: 2 radiographic views of the right femur were obtained. Comparison: None available at the time of this dictation. FINDINGS: There is no evidence of an acute fracture. The visualized portion of the hip and knee joints are unremarkable. Soft tissue swelling is seen. IMPRESSION: No evidence of acute bony injury. ACT 112: Negative or not required by law. Electronically signed by: Niko Robison M.D. 07/24/2022 12:10 PM ECG Data Attestation: I personally reviewed and interpreted this ECG as follows: Indication: + weakness Rate (beats per minute): 144 Rhythm: + atrial fibrillation (With rapid ventricular response) and + other (Poor baseline/artifact) ECG Intervals/blocks: + Normal QRS and + Normal QT ECG [place]: + Normal ECG ST segments: + Nonspecific ST abnormalities ECG Findings: no PVCs Comparison ECG Date: from (06/27/2022) Change: the following changes noted (Rate has increased) MDM Narrative This patient comes in as described above. He was placed on a tissue technologist room C9. he came in boarded and collared. I did order IV access and CAT scans for traumatic injuries . multiple blood testing was obtained. EKG was obtained he was noted to be in rapid A-fib. It looks like he is likely in chronic A-fib but I think that his rate was increased due to pain initially it did come down after treating his pain. CAT scan of his head and neck as well as abdomen and lumbar spine do not show any definite acute findings. Chest x-ray is unremarkable. He has no significant acute electrolyte or metabolic abnormalities. No significant anemia. COVID testing was negative. His white count is moderately elevated however so far do not find a source of infection. He is anticoagulated with an INR in the 3 range. His initial troponin is mildly elevated did trend this and the second one was actually slightly down. I do think he should be admitted/observed given his fall the fact that he is on Coumadin. he is in rapid A-fib and has significant back pain. He looks a lot better after receiving pain medication. I discussed the case and consulted Dr. Giron. He saw the patient in ER and will admit/observe him. Continuous cardiac monitoring: Orders placed in EMR for continuous cardiac monitoring: Upon my evaluation patient was noted to be in rapid A-fib with a rate of 120 Impression & Plan Atrial fibrillation with rapid ventricular response, Fall, Current use of fci anticoagulation, Back pain, Closed head injury, Lab test negative for COVID-19 virus Discharge Plan Visit Data Chief Complaint: Fall Stated Complaint: Fall, Head Injury ED Provider: Juan Guillermo Discharge Problem: Atrial fibrillation with rapid ventricular response, Fall, Current use of fci anticoagulation, Back pain, Closed head injury, Lab test negative for COVID-19 virus Forms Stand Alone Forms: My [facility] Prescriptions Prescriptions: No Action aspirin 81 mg Tablet,Chewable 81 mg PO DAILY digoxin [Digitek] 125 mcg (0.125 mg) Tablet 0.125 mg PO DAILY@1600 Qty: 30 0RF acetaminophen [Tylenol] 325 mg Tablet 650 mg PO Q4H PRN (Reason: Pain) Hold Instructions: hold until LFTs normalize atorvastatin 20 mg Tablet 20 mg PO HS Hold Instructions: hold until LFTs normalize sennosides-docusate sodium [Senna Plus] 8.6-50 mg Tablet 1 tab-cap PO QDL PRN (Reason: Constipation) dextrose [Glucose Gel] 40 % Gel 1 ea PO DIRECTED PRN (Reason: Hypoglycemia) Rx Instructions: 15 GRAM/TUBE, NEEDED. magnesium hydroxide [Milk of Magnesia] 400 mg/5 mL Suspension 30 ml PO DAILY PRN (Reason: Constipation) bisacodyl 10 mg Suppository 10 mg FL DAILY PRN (Reason: Constipation) Fleet Enema 19-7 gram/118 mL Enema 118 ml FL DAILY PRN (Reason: Constipation) polyethylene glycol 3350 [Miralax] 17 gram/dose Powder 17 g PO QDL PRN (Reason: Constipation) ondansetron 4 mg Tablet,Disintegrating 4 mg PO Q4H PRN (Reason: NAUSEA/VOMITING) metoprolol tartrate 50 mg tablet 25 mg PO Q12H Referrals Referrals: Sivakumar Oconnor MD [Hospitalist] -
[2022-07-24 07:36] LABS: Basophils # (auto) 0.02 K/uL (0-0.2); Basophils % (auto) 0.1 %; Eosinophils # (auto) 0.01 K/uL (0-0.50); Eosinophils % (auto) 0.1 %; Hematocrit (blood only) 35.6 % (42.0-52.0); Hemoglobin 12.1 g/dl (14.0-18.0); Immature Granulocytes # (auto) 0.12 K/uL (0.01-0.20); Immature Granulocytes % (auto) 0.8 %; Lymphocytes # (auto) 1.19 K/uL (1.2-3.4); Lymphocytes % (auto) 7.5 %; Mean Corpuscular Hemoglobin 29.5 pg (25.0-34.0); Mean Corpuscular Volume 86.8 fL (80.0-100.0); Mean Platelet Volume 9.9 fL (9.4-12.4); Neutrophils % (auto) 81.5 %; Platelet Count 314 K/uL (130-400); RDW Coefficient of Variation 14.3 % (11.5-14.5); RDW Standard Deviation 44.8 fL (36.4-46.3); White Blood Count 15.94 K/ul (4.8-10.8)
--- NOTE | 2022-07-24 07:53 | CT Scan Report ---
CT SCAN OF THE BRAIN WITHOUT IV CONTRAST CLINICAL HISTORY: Fall. Head injury. COMPARISON STUDY: CT of the brain dated 06/28/2022. TECHNIQUE: Unenhanced axial CT scan of the brain is performed from the vertex to the skull base. A do se lowering technique was utilized adhering to the principles of ALARA. FINDINGS: Brain parenchyma: The examination is compromised by motion artifact. Right MCA territory encephalomal acia is consistent with a previous infarct, as are foci of left frontal and left parietal encephaloma lacia. There is age-related involutional change noting moderate subcortical and periventricular micro angiopathic disease. There is no hemorrhage, mass effect, or evidence of acute territorial ischemia b y CT criteria. Calderon-white matter differentiation is preserved. No extra-axial fluid collection is see n. Ventricles, sulci, cisterns: Prominent secondary to involutional change. Intracranial vasculature: There is atherosclerotic calcification of the cavernous carotid and vertebr al arteries. Calvarium: The skeletal structures are osteopenic. No depressed calvarial fracture is seen. Soft tissues: There is a small frontal scalp contusion. Sinuses and mastoids: The visualized paranasal sinuses are clear. The mastoid air cells are well pneu matized. Orbits: The bony orbits are grossly intact. IMPRESSION: 1. There is no hemorrhage, mass effect, or evidence of acute territorial ischemia by CT criteria noti ng a motion compromised examination. 2. Prior infarcts as above. ACT 112: Negative or not required by law. Electronically signed by: John Perla M.D. 07/24/2022 7:51 AM
--- NOTE | 2022-07-24 07:53 | CT Scan Report ---
CT cervical spine wo con CLINICAL HISTORY: fall TECHNIQUE: Multidetector row helical CT of the cervical spine was performed without administration of intravenous contrast. Coronal and sagittal reformations were obtained. Automated dose lowering techn iques and/or adjustment according to patient size were utilized for this exam. Comparison: None available at the time of this dictation. FINDINGS: No acute fractures or subluxations are identified. Degenerative changes are seen in the visualized sp ine. The alignment is normal. Nuchal ligament calcification and calcification of the transverse ligam ent noted. IMPRESSION: No evidence of acute bony injury. ACT 112: Negative or not required by law. Electronically signed by: Niko Robison M.D. 07/24/2022 7:51 AM
[2022-07-24 07:57] LABS: Albumin Level 3.2 gm/dl (3.4-5.0); Bilirubin,Total 1.6 mg/dl (0.2-1.0); Calcium 8.9 mg/dl (8.6-10.3); Potassium 3.9 mmol/L (3.5-5.1)
[2022-07-24 07:59] LABS: Troponin I High Sensitivity 24.5 pg/ml (0-20)
--- NOTE | 2022-07-24 08:00 | CT Scan Report ---
CT abd pelvis wo con CLINICAL HISTORY: fall TECHNIQUE: Helical axial images of the abdomen and pelvis were obtained. Automated dose lowering tech niques and/or adjustment according to patient size were utilized for this exam. This exam was perfor med without intravenous contrast. COMPARISON: None available at the time of this dictation. FINDINGS: Lower chest: No acute abnormality. Liver: Unremarkable. No focal lesions are seen. Gallbladder and biliary tree: No calcified gallstones. Normal caliber wall. No intra- or extrahepatic biliary ductal dilation. Pancreas: Unremarkable, no focal lesions. Spleen: Unremarkable. Adrenals: Unremarkable. Kidneys and ureters: Exophytic renal cysts are seen bilaterally. Bladder: Limited evaluation due to underdistention. Reproductive organs: Unremarkable. Bowel: Diverticulosis is seen without evidence of diverticulitis. The appendix is normal. Lymph nodes Retroperitoneal: Unremarkable. Pelvic: Unremarkable. Mesenteric: Unremarkable. Peritoneum: Normal. Vessels: Atherosclerotic calcifications are seen. Abdominal wall: Limitations are noted in the right musculature. Bones: Degenerative changes in the visualized spine. IMPRESSION: No acute abnormalities are seen. Additional findings are as above. ACT 112: Negative or not required by law. Electronically signed by: Niko Robison M.D. 07/24/2022 7:58 AM
[2022-07-24 08:03] LABS: Albumin Globulin Ratio 0.8 (0.9-2); BUN Creatinine Ratio 26.7 (10-20); Creatinine Clr Calc Pharmacy 68.6 ml/min; Est GFR (African American) 92.5 ml/min; Est GFR (Non-African American) 79.8 ml/min; Globulin 3.9 gm/dl (2.5-4.0); Total Protein 7.1 gm/dl (6.0-8.3)
[2022-07-24] MEDS ORDERED: MoRPHine SULFATE 2 MG/ML CARP IV STA (08:07)
[2022-07-24] MEDS ORDERED: ONDANSETRON INJ 2 MG/ML 2 ML VIAL IV STA (08:07)
--- NOTE | 2022-07-24 08:30 | XRay Report ---
SINGLE VIEW CHEST CLINICAL HISTORY: Atypical chest pain. FINDINGS: An AP, portable, supine chest radiograph is compared to study dated 06/27/2022. A trauma boa rd is in place. The heart is enlarged noting atherosclerotic calcification of the thoracic aorta. The pulmonary vasculature is nondistended congested. Chronic interstitial thickening is similar to previ ous. There is bibasilar scarring/atelectasis. The lungs and pleural spaces are otherwise clear. No pn eumothorax is seen. The skeletal structures are osteopenic. The bony thorax is grossly intact. IMPRESSION: Cardiomegaly with no acute cardiopulmonary abnormality identified. ACT 112: Negative or not required by law. Electronically signed by: John Perla M.D. 07/24/2022 8:28 AM
--- NOTE | 2022-07-24 09:14 | CT Scan Report ---
CT SCAN OF THE LUMBAR SPINE WITHOUT IV CONTRAST CLINICAL HISTORY: Fall. COMPARISON STUDY: Radiographs of the lumbar spine dated 06/18/2022. Abdominal CT dated 06/27/2022. TECHNIQUE: CT scan of the lumbar spine is performed from the lower thoracic spine to the sacrum. Imag es are reviewed in the axial, sagittal, and coronal planes. IV contrast was not administered for this examination. A dose lowering technique was utilized adhering to the principles of ALARA. CT DOSE: 2676.39 mGy.cm FINDINGS: The skeletal structures are osteopenic. There is no evidence of acute fracture or malalignm ent involving the lumbar spine. Vertebral body height and alignment are maintained. Anterior and late ral marginal osteophytes are seen throughout. The transverse and spinous processes are intact. There is no spondylolysis. No lytic or blastic lesion is seen. Vtvgiwmq-de-xpjxof disc space narrowing is s een at all lumbar levels with associated posterior disc osteophyte complexes. There is at least moder ate central canal stenosis at L4-L5. Facet arthropathy is noted in the lower lumbar region. Imaged po rtions of the sacrum and bony pelvis appear intact. There is fatty atrophy of the paraspinous muscula ture. The paraspinous soft tissues are otherwise normal in appearance. There is advanced atherosclero tic calcification of the normal caliber abdominal aorta. No retroperitoneal lymphadenopathy is seen. A 3.1 cm cyst is incidentally noted in the left kidney. IMPRESSION: 1. There is no evidence of fracture or malalignment involving the lumbar spine. 2. Osteopenia and spondylotic change as above. ACT 112: Negative or not required by law. Dictated: 07/24/2022 7:52 AM Transcribed: 07/24/2022 8:56 AM Jean Paul [id number] [email or web address] Electronically signed by: John Perla M.D. 07/24/2022 9:11 AM
[2022-07-24 09:44] LABS: INR 3.5 (0.9-1.1); Partial Thromboplastin Ratio 1.3; Partial Thromboplastin Time 37.8 Seconds (21.0-31.0); Prothrombin Time 35.4 Seconds (9.0-12.0)
[2022-07-24] MEDS ORDERED: SODIUM CHLORIDE 0.9% 1000ML 500 ML IV ONE (10:23)
--- NOTE | 2022-07-24 10:23 | History & Physical Report ---
Date of Service July 24, 2022 Assessment & Plan (1) Fall: Plan: Fall, no reported loss of consciousness, Patient with recent right MCA - 06/16/2022large right-sided MCA stroke with mild hemorrhagic transformation with left-sided hemiparesis, suspected embolic from permanent A-fib not on anticoagulation. -CThead: No hemorrhage, mass effect, or acute ischemia by CT criteria. Prior right MCA infarct noted with additional foci of encephalomalacia in left frontal and left parietal -CTC-spine: No acute fracture or subluxation noted -CXR: Cardiomegaly, no acute findings -CTA/P: No acute abnormalities are seen. Additional findings are as above. -Lumbar spine CT: 1. There is no evidence of fracture or malalignment involving the lumbar spine.2. Osteopenia and spondylotic change as above. Patient denies fever, chills, dysuria or other infectious symptoms. Urine is very dark in Lay catheter and is with a leukocytosis, patient reports while in his shelter cell he has had use of bathroom more often and was attempting to ambulate to the bathroom when he fell/sent to the ground UA pending Admitted with neurochecks for high risk of intracranial hemorrhage, see stroke documentation Fall precautions Afib RVR, acute on chronic, unstable - Admitting EKG: A-fib with RVR, rate 141, borderline ST depressions in anterior leads. QTc 407. -Patient with A-fib and RVR, did not get morning medications. Troponin with mild ST depressions on EKG, suspect demand ischemia. Trended. - TTE 06/17/2022: LV normal in size, asymmetric severe LVH. Septal hypertrophy. Left ventricular EF normal. Moderate valvular aortic stenosis. Moderate mitral regurg. Moderate tricuspid regurg. Left atrial dilation. Right ventricle grossly normal in size. No evidence of shunt. 500 cc NSS bolus given for clinical volume contraction with elevated creatinine/BUN ratio, metoprolol ordered this was missed in the morning. Rate improving to 90s at bedside. Defer aggressive fluids in the setting of history of heart failure with preserved ejection fraction Follow on telemetry Hx R MCA Stroke w/ Hemmorhagic Transformation, chronic. Stable with no evidence of rebleed at time of admission - 07/04/2021 [facility] discharge summary reviewed: CTh stable and patient was continued on heparin infusion. CTh 24 hours post therapeutic heparin level stable without hemorrhage Patient was switched to warfarin with Lovenox 1 mg/kg twice daily for bridging Lipitor was held for transaminitis, improved once LFTs were less than 2 times normal limits Patient was discharged to the shelter 07/04/2022 on aspirin, atorvastatin 40 mg, and warfarin with goal INR 23 - Continue warfarin, 1 dose held 07/24 for INR 3.5 No evidence of rebleed on CT head. Given supratherapeutic INR and high risk we will continue to watch and perform neurochecks overnight. Stat CT repeat for any neurologic change/focal deficits Patient appears to be slightly somnolent, but otherwise mentating at near normal baseline at time of admission Hip pain, acute CTA/P without evidence of hip fracture, due to patient pain in right hip radiating to mid thigh additional x-ray of the femur ordered to R/o fracture Cap refill intact in leg, sensation and strength grossly intact in right leg Dose reduced Tylenol due to history of recurrent transaminitis, morphine for breakthrough as needed ?Polyuria -Patient endorses urinary frequency without burning, no fever/chills/nausea/vomiting UA pending, does have a leukocytosis on admit If UA infected appearing will treat empirically with Rocephin. No other infectious symptoms at time of admission. 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: (4) Valvular heart disease: (5) Atrial fibrillation: (6) Acute heart failure with preserved ejection fraction (HFpEF): (7) Atrial fibrillation with RVR: History of Present Illness Primary Care Provider: CARO Wang Gracia is a 82-year-old male with a past medical history of severe peripheral artery disease, dementia at baseline limiting ability to contribute to HPI, past CVA with intracranial hemorrhage, A-fib with RVR, internal carotid bilateral stenosis, heart failure with preserved ejection fraction and valvular heart disease with history of demand ischemia who presents with acute confusion. Chart Review: Patient was recently admitted 06/28 and subsequently [place] [facility] [place] due to severe peripheral artery disease requiring heparinization for ischemic foot but with additional risk due to his history of intracranial bleeding and recent right-sided MCA stroke with hemorrhagic transformation. Patient was accepted to medical service with vascular care with neurosurgical services available should patient have intracranial bleed while on heparin. While pending transfer patient was noted to have significant cognitive impairment, confusion/lethargy seemed above his baseline at that time but the baseline did not allow him to interact meaningfully for HPI by report He does have a history of A-fib controlled with digoxin and metoprolol, with a long-term goal of Eliquis but this was delayed in June due to hemorrhagic stroke conversion. 06/16/2022large right-sided MCA stroke with mild hemorrhagic transformation with left-sided hemiparesis, suspected embolic from permanent A-fib not on anticoagulation. Patient also has a history of bilateral intracranial internal carotid stenosis for which he is ultimately recommended to be on a statin with or without aspirin depending of her/benefits and status of anticoagulation 07/04/2021 [facility] discharge summary reviewed: CTh stable and patient was continued on heparin infusion. CTh 24 hours post therapeutic heparin level stable without hemorrhage Patient was switched to warfarin with Lovenox 1 mg/kg twice daily for bridging Lipitor was held for transaminitis, improved once LFTs were less than 2 times normal limits Patient was discharged to the shelter 07/04/2022 on aspirin, atorvastatin 40 mg, and warfarin with goal INR 23 Basil is seen at the bedside with 2 guards present. He is in no distress on arrival, and awakens to voice. Somewhat somnolent, but does awaken and answer most questions appropriately. He is not oriented to year. He is oriented to name and hospital. He reports he did not lose consciousness completely, remem bers trying to get to the commode this morning but felt very weak and was trying to crawl to it and then slumped against the wall. Reports he was found sitting up against the wall. He denies headache, chest pain, chest pressure, acute focal weakness, palpitations, shortness of breath, difficulty breathing, fever, and chills. He denies dysuria. Thinks he has been peeing more frequently, was trying to pee when he fell and some to the wall. Denies nausea/vomiting/diarrhea/constipation/cough/sputum production. Discussed w/ infirmiry. unwitnessed fall. Found in cell sitting against call, ?hit head against the wall so put in a collar. Did not get any morning medications. No longer takes digoxin, is on metoprolol. Medications reconciled as below, last took last night: Lipitor 20mg hctz 12.5mg metoprolol 50mg tartrate BID flomax .4 5mg coumadin daily no aspirin vitamin d3 50,000u Mon/Wed Medical History: Reviewed Medications: Reviewed Surgical History: Reviewed Family history: Reviewed Allergies: Reviewed. NKMA Social History: No tobacco, no etoh Code Status: Full Code Allergies Allergy/AdvReac Type Severity Reaction Status Date / Time No Known Allergies Allergy Verified 06/27/22 17:42 Home Medications Medication Instructions Recorded Confirmed Type aspirin 81 mg chewable tablet 81 mg PO DAILY 01/21/20 06/27/22 History digoxin 125 mcg (0.125 mg) tablet 0.125 mg PO DAILY@1600 #30 tabs 06/21/22 06/27/22 Rx (Digitek) acetaminophen 325 mg tablet 650 mg PO Q4H PRN Pain 06/27/22 06/27/22 History (Tylenol) atorvastatin 20 mg tablet 20 mg PO HS 06/27/22 06/27/22 History bisacodyl 10 mg rectal suppository 10 mg [place] DAILY PRN Constipation 06/27/22 06/27/22 History dextrose 40 % oral gel (Glucose 1 ea PO DIRECTED PRN 06/27/22 06/27/22 History Gel) Hypoglycemia magnesium hydroxide 400 mg/5 mL 30 ml PO DAILY PRN Constipation 06/27/22 06/27/22 History oral suspension (Milk of Magnesia) metoprolol tartrate 50 mg tablet 25 mg PO Q12H 06/27/22 06/27/22 History ondansetron 4 mg disintegrating 4 mg PO Q4H PRN NAUSEA/VOMITING 06/27/22 06/27/22 History tablet polyethylene glycol 3350 17 17 g PO QDL PRN Constipation 06/27/22 06/27/22 History gram/dose oral powder (Miralax) sennosides 8.6 mg-docusate sodium 1 tab-cap PO QDL PRN Constipation 06/27/22 06/27/22 History 50 mg tablet (Senna Plus) sodium phosphates 19 gram-7 118 ml [place] DAILY PRN Constipation 06/27/22 06/27/22 History gram/118 mL enema (Fleet Enema) Past Med/Surg History Medical History (Updated 07/24/22 @ 10:55 by Crispin Giron MD) Acute heart failure with preserved ejection fraction (HFpEF) Aortic valve disorder Atrial fibrillation Atrial fibrillation and flutter Elevated d-dimer Elevated troponin Hypertension Hypoxia Mitral regurgitation Other nonrheumatic aortic valve disorders PAD (peripheral artery disease) Renal insufficiency Tricuspid regurgitation Social History Smoking Status: Unknown if ever smoked Tobacco Type: Cigarettes Second Hand Exposure: No; Do You Dip or Chew Tobacco: No; Hx Alcohol Use: No Hx Substance Use: No Preferred Language: Portuguese Communication Ability: Effective Communication Ability Comment: tries to follow commands 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 NAD. Cooperative. HEENT: Atraumatic, normocephalic. Pulm: CTAB A&P. -wheezes, -rales, -rhonchi. Symmetrical chest rise. No increased work of breathing. No respiratory distress. Cardiac: Irregular, tachycardic, systolic murmur present. Radial pulses intact and symmetrical. Abdominal: Nontender, nondistended, soft. BS present. Extremities: Retort Engineer strength and elbow flexion intact bilaterally, left soup person strength and elbow flexion are intact but qualitatively less than the right approximately 4 -/5. Right hip flexion limited by pain at the proximal hip, ankle dorsiflexion/plantarflexion 5/5. Left hip flexion, ankle dorsiflexion/plantarflexion with unclear assessment as patient does not move and falls back asleep sitting his hip hurts during attempted strength exams, but does dorsiflex foot and flex the hip slightly during skin exam. Endorses sensation is intact to soft touch in hands and feet bilaterally without asymmetry. Pupils are equal and reactive to light. Visual garza grossly intact, hearing grossly intact. Tongue protrudes midline. No facial asymmetry. Right buttock is tender to palpation with some radiation down into the mid thigh. Sacral ulcer is present covered with dressing. Right foot with medial and lateral pressure wounds, no warmth/erythema/discharge. Heel cup in place. Results & Data Results & Data Vital Signs (Past 12 Hours) Vital Signs Pulse Resp BP Pulse Ox O2 Del Method 07/24/22 08:31 123 H 24 92 07/24/22 08:31 118/72 07/24/22 08:00 126 H 22 97 07/24/22 08:00 128/94 07/24/22 07:20 127 H 24 98 07/24/22 07:00 104 H 24 98 07/24/22 06:13 29 H 07/24/22 06:13 150/82 H 07/24/22 07:24 96 Room Air 07/24/22 06:28 88 07/24/22 06:16 65 16 150/82 H PG Care Time/CCT Total # of Minutes Spent Total Time Spent with Patient: Total time spent is greater than 50% in coordination of care (as documented) at patient's floor/unit and/or counseling patient: Coding Level of Care Code 50894 INT INP/OBS CARE 3/75MIN Diagnoses Fall W19.XXXA Cerebrovascular accident (CVA) with intracranial hemorrhage I61.9 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
[2022-07-24] MEDS ORDERED: DIGOXIN 125 MCG in SYRINGE 9.5 ML IV STA (10:32)
[2022-07-24] MEDS ORDERED: ACETAMINOPHEN 500 MG TAB PO PRN (11:06)
[2022-07-24] MEDS ORDERED: METOPROLOL TARTRATE 50 MG TAB PO STA (11:09)
--- NOTE | 2022-07-24 12:11 | XRay Report ---
XR femur RT 2V routine CLINICAL HISTORY: unwitnessed fall, leg pain. Pelvis no fxr on CT TECHNIQUE: 2 radiographic views of the right femur were obtained. Comparison: None available at the time of this dictation. FINDINGS: There is no evidence of an acute fracture. The visualized portion of the hip and knee joints are unr emarkable. Soft tissue swelling is seen. IMPRESSION: No evidence of acute bony injury. ACT 112: Negative or not required by law. Electronically signed by: Niko Robison M.D. 07/24/2022 12:10 PM
[2022-07-24] MEDS ORDERED: MoRPHine SULFATE 2 MG/ML CARP IV PRN ×2 (15:58)
[2022-07-24] MEDS ORDERED: ATORVASTATIN 20 MG TAB PO SCH (21:00)
[2022-07-24] MEDS ORDERED: TAMSULOSIN HCL 0.4 MG CAP PO SCH (21:00)
[2022-07-24] MEDS: METOPROLOL TARTRATE 50 MG TAB PO SCH (22:25)
[2022-07-24 23:00] LABS: Appearance Urine Turbid (Clear); Bacteria Urine Automated 4+ (Negative); Bilirubin Urine Negative (Negative); Blood Urine 2+ (Negative); Color Urine Dark Yellow; Glucose Urine UA Negative (Negative); Ketones Urine Trace (Negative); Leukocyte Esterase Urine 3+ (Negative); Nitrite Urine Positive (Negative); Protein Urine 1+ (Negative); Specific Gravity Urine 1.023 (1.000-1.030); Urobilinogen Urine Positive (Negative); WBC Urine Automated >30 /hpf (0-5); pH Urine 5.5 (4.5-7.5)
[2022-07-24 23:09] LABS: Cast Urine Automated 0 /lpf (0-5)
[2022-07-25 01:14] LABS: Basophils # (auto) 0.02 K/uL (0-0.2); Basophils % (auto) 0.2 %; Eosinophils # (auto) 0.07 K/uL (0-0.50); Eosinophils % (auto) 0.7 %; Hematocrit (blood only) 32.2 % (42.0-52.0); Hemoglobin 11.1 g/dl (14.0-18.0); Immature Granulocytes # (auto) 0.05 K/uL (0.01-0.20); Immature Granulocytes % (auto) 0.5 %; Lymphocytes # (auto) 1.43 K/uL (1.2-3.4); Lymphocytes % (auto) 13.4 %; Mean Corpuscular Hemoglobin 30.2 pg (25.0-34.0); Mean Corpuscular Hgb Conc 34.5 g/dL (32.0-36.0); Mean Corpuscular Volume 87.7 fL (80.0-100.0); Mean Platelet Volume 9.8 fL (9.4-12.4); Monocytes # (auto) 1.01 K/uL (0.11-0.59); Monocytes % (auto) 9.4 %; Neutrophils # (auto) 8.13 K/uL (1.40-6.50); Neutrophils % (auto) 75.8 %; Platelet Count 277 K/uL (130-400); RDW Coefficient of Variation 14.3 % (11.5-14.5); RDW Standard Deviation 45.6 fL (36.4-46.3); Red Blood Count 3.67 M/uL (4.70-6.10); White Blood Count 10.71 K/ul (4.8-10.8)
[2022-07-25 01:22] LABS: Albumin Globulin Ratio 0.8 (0.9-2); Albumin Level 2.9 gm/dl (3.4-5.0); BUN Creatinine Ratio 24.3 (10-20); Bilirubin,Total 1.1 mg/dl (0.2-1.0); Calcium 8.5 mg/dl (8.6-10.3); Creatinine Clr Calc Pharmacy 54.9 ml/min; Est GFR (African American) 75.1 ml/min; Est GFR (Non-African American) 64.8 ml/min; Globulin 3.7 gm/dl (2.5-4.0); Potassium 3.4 mmol/L (3.5-5.1); Total Protein 6.6 gm/dl (6.0-8.3)
[2022-07-25 01:50] LABS: INR 4.1 (0.9-1.1); Partial Thromboplastin Ratio 1.5; Prothrombin Time 41.3 Seconds (9.0-12.0)
[2022-07-25 01:59] LABS: Partial Thromboplastin Time 42.3 Seconds (21.0-31.0)
--- NOTE | 2022-07-25 08:21 | Hospitalist Progress Note ---
Date of Service July 25, 2022 Assessment & Plan (1) Fall: Plan: Fall, no reported loss of consciousness, Patient with recent right MCA - 06/16/2022large right-sided MCA stroke with mild hemorrhagic transformation with left-sided hemiparesis, suspected embolic from permanent A-fib not on anticoagulation. -CThead: No hemorrhage, mass effect, or acute ischemia by CT criteria. Prior right MCA infarct noted with additional foci of encephalomalacia in left frontal and left parietal -CTC-spine: No acute fracture or subluxation noted -CXR: Cardiomegaly, no acute findings -CTA/P: No acute abnormalities are seen. Additional findings are as above. -Lumbar spine CT: 1. There is no evidence of fracture or malalignment involving the lumbar spine.2. Osteopenia and spondylotic change as above. Patient denies fever, chills, dysuria or other infectious symptoms. Urine is very dark in Lay catheter and is with a leukocytosis, patient reports while in his senior living cell he has had use of bathroom more often and was attempting to ambulate to the bathroom when he fell/sent to the ground UA pending Admitted with neurochecks for high risk of intracranial hemorrhage, see stroke documentation Fall precautions Afib RVR, acute on chronic, unstable - Admitting EKG: A-fib with RVR, rate 141, borderline ST depressions in anterior leads. QTc 407. -Patient with A-fib and RVR, did not get morning medications. Troponin with mild ST depressions on EKG, suspect demand ischemia. Trended. - TTE 06/17/2022: LV normal in size, asymmetric severe LVH. Septal hypertrophy. Left ventricular EF normal. Moderate valvular aortic stenosis. Moderate mitral regurg. Moderate tricuspid regurg. Left atrial dilation. Right ventricle grossly normal in size. No evidence of shunt. 500 cc NSS bolus given for clinical volume contraction with elevated creatinine/BUN ratio, metoprolol ordered this was missed in the morning. Rate improving to 90s at bedside. Defer aggressive fluids in the setting of history of heart failure with preserved ejection fraction Follow on telemetry Hx R MCA Stroke w/ Hemmorhagic Transformation, chronic. Stable with no evidence of rebleed at time of admission - 07/04/2021 [facility] discharge summary reviewed: CTh stable and patient was continued on heparin infusion. CTh 24 hours post therapeutic heparin level stable without hemorrhage Patient was switched to warfarin with Lovenox 1 mg/kg twice daily for bridging Lipitor was held for transaminitis, improved once LFTs were less than 2 times normal limits Patient was discharged to the senior living 07/04/2022 on aspirin, atorvastatin 40 mg, and warfarin with goal INR 23 - Continue warfarin, 1 dose held 07/24 for INR 3.5 No evidence of rebleed on CT head. Given supratherapeutic INR and high risk we will continue to watch and perform neurochecks overnight. Stat CT repeat for any neurologic change/focal deficits Patient appears to be slightly somnolent, but otherwise mentating at near normal baseline at time of admission Hip pain, acute CTA/P without evidence of hip fracture, due to patient pain in right hip radiating to mid thigh additional x-ray of the femur ordered to R/o fracture Cap refill intact in leg, sensation and strength grossly intact in right leg Dose reduced Tylenol due to history of recurrent transaminitis, morphine for breakthrough as needed ?Polyuria -Patient endorses urinary frequency without burning, no fever/chills/nausea/vomiting UA pending, does have a leukocytosis on admit If UA infected appearing will treat empirically with Rocephin. No other infectious symptoms at time of admission. 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: (4) Valvular heart disease: (5) Atrial fibrillation: (6) Acute heart failure with preserved ejection fraction (HFpEF): (7) Atrial fibrillation with RVR: Admission and Anticipated Discharge Date Admission Date: July 24, 2022 Results & Data Results & Data Vital Signs (Past 12 Hours) Vital Signs Temp Pulse Pulse Resp BP Pulse Ox O2 Del Method 07/25/22 07:37 36.8 C 91 H 18 117/73 95 Room Air 07/25/22 07:25 101 H 07/25/22 03:54 36.6 C 84 18 110/69 97 Room Air 07/24/22 22:10 92 H 07/24/22 22:19 36.6 C 87 18 107/66 97 Room Air PG Care Time/CCT Total # of Minutes Spent Total Time Spent with Patient: Total time spent is greater than 50% in coordination of care (as documented) at patient's floor/unit and/or counseling patient: Coding Diagnoses Fall W19.XXXA Encounter type: initial encounter Cerebrovascular accident (CVA) with intracranial hemorrhage I61.9 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
[2022-07-25] MEDS ORDERED: hydroCHLOROthiazide 25 MG TAB PO SCH (09:00)
--- NOTE | 2022-07-25 09:12 | Neurology Consultation ---
Date of Consultation July 25, 2022 Assessment & Plan (1) Closed head injury: (2) Atrial fibrillation with RVR: (3) Hemiparesis affecting left side as late effect of cerebrovascular accident: (4) History of CVA with residual deficit: Plan patient suffered a significant right middle cerebral artery stroke June 16 resulting in left vasyl paresis. There was some mild hemorrhagic transformation noted but this has resolved. He has permanent atrial fibrillation with abnormalities of significance on echocardiogram as well as severe peripheral arterial disease in the lower extremities. The patient did fall and have some head trauma but there was no hemorrhage or residual issue. Although he may have been confused some after the event on July 23, he seems to be back to baseline with his mental status currently. He has no change in neuro exam compare to expected given his stroke and findings at [facility]. Patient also has bilateral carotid stenosis distally ( 50%) as well as left vertebral stenosis. He is at great risk for further stroke given his p eripheral vascular and atrial fibrillation /cardiac states (As well as great risk for arterial occlusions in the lower extremities). Even though he is at risk for fall and head trauma he tends to be nonambulatory and they can watch him to keep him from falling and injuring himself. The patient has a history of dementia but he actually is fairly well oriented today and his dementia seems to be reasonably mild. Recommendations: 1. Therefore, I recommend he go back on the anticoagulant and antiplatelet medication as before. 2. physical/occupational therapy as tolerated. 3. I see no need for additional neurologic testing at this time. Overall, I spent a total of 75 minutes with this case including review of records, review of MRI and CT films, direct evaluation the patient at bedside, and discussing the case with the patient at bedside, and Dr. Alexandra including differential diagnosis and treatment options. History of Present Illness Reason for Consultation: patient is an 82-year-old, who I was asked to see at the request of Dr. Alexandra, for neurologic consultation regarding issues around his recent stroke and hemorrhage. Requesting Physician: Dr. Alexandra Attending Physician: Marina Sterling, History of Present Illness patient is an inmate at [facility]. He had a medium to large size right middle cerebral artery acute stroke noted June 16 of this year. Evaluation revealed some areas of hemorrhagic transformation within the stroke ( not a nika hemorrhage however ), and MRI revealed some mild generalized atrophy and old small vessel ischemic change. CT angiography revealed moderate stenosis of left vertebral artery and 50% stenosis in the internal carotid arteries distally in the supraclinoid area bilaterally. there was an abrupt cutoff of the right M2 segment of the middle cerebral artery. Echocardiogram revealed significant valvular disease and by atrial enlargement with severe septal hypertrophy. He was in permanent atrial fibrillation. He was discharged on 81 mg aspirin to [facility] on June 21. Because of severe lower extremity pain, weakness and ischemia he was transferred from the [facility] on June 29 2 [facility]. Vascular surgery ended up not doing any surgical procedure but he was noted to have severe peripheral arterial disease and discharged back to [facility] July 04, on Coumadin, 81 mg aspirin tablet daily, and atorvastatin 40. at [facility] was noted that his motor strength was 5/5 diffusely in the right upper extremity, 3/5 diffusely in the left upper extremity, 2/5 diffusely in the right lower extremity, and 0/5 diffusely in the left lower extremity. Apparently the patient was crawling trying to get somewhere and ended up striking his head . [place] He was sent to [facility] ER July 24 . He was more confused than usual as well. In the ER, he was afebrile and in permanent atrial fibrillation with a rate in the 120s. A CT scan of the head showed the old right middle cerebral artery stroke but no hemorrhagic transformation or other bleed such as a subdural or subarachnoid hemorrhage. CBC and Chem profile were largely unchanged from previous studies. This morning the patient complains of some left occipital pain and buttocks pain. Allergies Allergy/AdvReac Type Severity Reaction Status Date / Time No Known Allergies Allergy Verified 06/27/22 17:42 Home Medications Medication Instructions Recorded Confirmed Type atorvastatin 20 mg tablet 20 mg PO HS 06/27/22 07/24/22 History bisacodyl 10 mg rectal suppository 10 mg RI BID PRN Constipation 06/27/22 07/24/22 History metoprolol tartrate 50 mg tablet 50 mg PO BID 06/27/22 07/24/22 History ergocalciferol (vitamin D2) 1,250 1,250 mcg PO WK 07/24/22 07/24/22 History mcg (50,000 unit) capsule (Vitamin D2) hydrochlorothiazide 12.5 mg capsule 12.5 mg PO DAILY 07/24/22 07/24/22 History tamsulosin 0.4 mg capsule 0.4 mg PO DAILY 07/24/22 07/24/22 History warfarin 5 mg tablet 5 mg PO DAILY 07/24/22 07/24/22 History Patient History Medical History Acute heart failure with preserved ejection fraction (HFpEF) Aortic valve disorder Atrial fibrillation Atrial fibrillation and flutter Elevated d-dimer Elevated troponin Hypertension Hypoxia Mitral regurgitation Other nonrheumatic aortic valve disorders PAD (peripheral artery disease) Renal insufficiency Tricuspid regurgitation Social History Smoking Status: Former smoker Tobacco Type: Cigarettes Second Hand Exposure: No; Do You Dip or Chew Tobacco: No; Hx Alcohol Use: No Hx Substance Use: No Preferred Language: Telugu Communication Ability: Effective Communication Ability Comment: tries to follow commands Lei Maker Required: No Beliefs That Will Affect Care: None Current Living Situation: Other Current Living Situation Comment: [place] Feels Safe at Home: Yes Safety Concerns: Feels Safe At This Time Assistive Devices: None Review of Systems Constitutional: + fatigue; no fever and no weakness Eyes: no diplopia, no eye pain and no worsening vision Ear, Nose, Mouth, Throat: no ear pain, no tinnitus, no hearing loss, no dizziness, no snoring, no hoarseness and no dysphagia Respiratory: no cough and no dyspnea Cardiovascular: no chest pain, no palpitations and no lightheadedness Gastrointestinal: no abdominal pain, no nausea and no vomiting Musculoskeletal: + back pain and + neck pain; no radicular pain, no joint pain and no myalgia Integumentary: no rash and no lesions Neurologic: + gait abnormality, + localized weakness, + headache(s) and + memory loss; no generalized weakness, no tingling, no numbness, no tremor(s), no abnormal movements, no abnormal speech and no confusion Psychiatric: no depression, no irritability, no anxiety, no difficulty concentrating, no confusion and no hallucinations Endocrine: no fatigue and no flushing Hematologic / Lymphatic: no easy bleeding and no easy bruising Allergy / Immunological: no urticaria and no problem reported Exam (Neuro) Physical Exam: The patient is right-handed. The patient is awake, alert, and attentive. Speech is normal without any obvious aphasia or dysarthria. The patient can name objects, repeat phrases, and has normal spontaneous speech. Mood is reasonable (although he is a little irritable ) affect is reasonably appropriate. He knew his name and age, the month, the year, the day, and the president. He followed one-step commands fairly well but was very resistant to moving his limbs because it created "pain". Pupils are 3 mm bilaterally and reactive to light. Extraocular eye muscles are intact without nystagmus. Visual acuity and visual garza seem normal grossly to confrontation. There are no deficits to sensation in the face in all 3 distributions of the fifth cranial nerve bilaterally. Corneal reflexes are positive bilaterally. there was slight asymmetry with a mild droop of the left corner of the mouth. I did move somewhat voluntary smile. Hearing seems normal bilaterally. Palate moves well without asymmetry. There is normal sternocleidomastoid and trapezius (shoulder shrug) strength bilaterally. Tongue is midline with good strength bilaterally. Neck has a full range of motion without discomfort. There are no cervical bruits bilaterally. There are no cranial or ocular bruits. Heart is without murmur. There is a regular rhythm and rate. Cervical, thoracic, and lumbar spine are nontender to palpation. Gait could not be tested and stance sitting up in bed is poor. With outstretched arms there is Slight drift on the left. There are no resting tremors. There is mild action tremor with the left upper extremity. There is no ataxia with finger to nose testing. There is decreased facility the left h and. No other abnormal involuntary movements are noted. motor strength was somewhat difficult to be certain because the patient was not very cooperative however, there seemed to be essentially 5/5 strength diffusely in the right upper extremity both proximally and distally. The left deltoid was 4/5 but the biceps and triceps were 5/5 bilaterally. More distally in the left upper extremity was closer to 4/5. Patient was unwilling to move the left lower extremity and it was 0/5 diffusely. The right lower extremity was 2/5. The limbs have good tone without rigidity or spasticity. There is no atrophy noted in the muscles. Muscle bulk is normal, there is no tenderness to palpation, no myotonia to percussion, and no fasciculations seen. Sensory examination is intact to touch and pin throughout all 4 limbs diffusely. Reflexes are 1/4 in the biceps, triceps, brachioradialis, and quadriceps tendons bilaterally. Achilles tendon reflexes were absent bilaterally. There is no clonus bilaterally. Toes are downgoing with plantar stimulation on the right and neutral/ not moving on the left. Peripheral pulses are present and of normal quality distally in all 4 limbs. There is no peripheral edema noted in the limbs. Results & Data Vital Signs (Past 12 Hours) Vital Signs Temp Pulse Pulse Resp BP Pulse Ox O2 Del Method 07/25/22 07:37 36.8 C 91 H 18 117/73 95 Room Air 07/25/22 07:25 101 H 07/25/22 03:54 36.6 C 84 18 110/69 97 Room Air 07/24/22 22:10 92 H 07/24/22 22:19 36.6 C 87 18 107/66 97 Room Air PG Care Time/CCT Total # of Minutes Spent Total Time Spent with Patient: Total time spent is greater than 50% in coordination of care (as documented) at patient's floor/unit and/or counseling patient: Coding Level of Care Code 16184 INT INP/OBS CARE 3/75MIN Diagnoses Closed head injury S09.90XA Encounter type: initial encounter Atrial fibrillation with RVR I48.91 Hemiparesis affecting left side as late effect of cerebrovascular accident I69.354 History of CVA with residual deficit I69.30 Time Spent (min) 75 (1) Closed head injury Encounter type: initial encounter Qualified Code(s): S09.90XA - Unspecified injury of head, initial encounter
[2022-07-25] MEDS: METOPROLOL TARTRATE 50 MG TAB PO SCH (12:30)
[2022-07-25] MEDS ORDERED: cephALEXin 500 MG CAP PO SCH (13:00)
--- NOTE | 2022-07-25 13:38 | Discharge Summary ---
Discharge Summary Date of Service July 25, 2022 Admission HPI Per Admitting Provider Basil is a 82-year-old male with a past medical history of severe peripheral artery disease, dementia at baseline limiting ability to contribute to HPI, past CVA with intracranial hemorrhage, A-fib with RVR, internal carotid bilateral stenosis, heart failure with preserved ejection fraction and valvular heart disease with history of demand ischemia who presents with acute confusion. Chart Review: Patient was recently admitted 06/28 and subsequently discharged to [facility] for vascular surgery/neurology due to severe peripheral artery disease requiring heparinization for ischemic foot but with additional risk due to his history of intracranial bleeding and recent right-sided MCA stroke with hemorrhagic transformation. Patient was accepted to medical service with vascular care with neurosurgical services available should patient have intracranial bleed while on heparin. While pending transfer patient was noted to have significant cognitive impairment, confusion/lethargy seemed above his baseline at that time but the baseline did not allow him to interact meaningfully for HPI by report He does have a history of A-fib controlled with digoxin and metoprolol, with a long-term goal of Eliquis but this was delayed in June due to hemorrhagic stroke conversion. 06/16/2022large right-sided MCA stroke with mild hemorrhagic transformation with left-sided hemiparesis, suspected embolic from permanent A-fib not on anticoagulation. Patient also has a history of bilateral intracranial internal carotid stenosis for which he is ultimately recommended to be on a statin with or without aspirin depending of her/benefits and status of anticoagulation 07/04/2021 [facility] discharge summary reviewed: CTh stable and patient was continued on heparin infusion. CTh 24 hours post therapeutic heparin level stable without hemorrhage Patient was switched to warfarin with Lovenox 1 mg/kg twice daily for bridging Lipitor was held for transaminitis, improved once LFTs were less than 2 times normal limits Patient was discharged to the [facility] 07/04/2022 on aspirin, atorvastatin 40 mg, and warfarin with goal INR 23 Basil is seen at the bedside with 2 guards present. He is in no distress on arrival, and awakens to voice. Somewhat somnolent, but does awaken and answer most questions appropriately. He is not oriented to year. He is oriented to name and hospital. He reports he did not lose consciousness completely, remembers trying to get to the commode this morning but felt very weak and was trying to crawl to it and then slumped against the wall. Reports he was found sitting up against the wall. He denies headache, chest pain, chest pressure, acute focal weakness, palpitations, shortness of breath, difficulty breathing, fever, and chills. He denies dysuria. Thinks he has been peeing more frequently, was trying to pee when he fell and some to the wall. Denies nausea/vomiting/diarrhea/constipation/cough/sputum production. Discussed w/ [facility]. unwitnessed fall. Found in cell sitting against call, ?hit head against the wall so put in a collar. Did not get any morning medications. No longer takes digoxin, is on metoprolol. Medications reconciled as below, last took last night: Lipitor 20mg hctz 12.5mg metoprolol 50mg tartrate BID flomax .4 5mg coumadin daily no aspirin vitamin d3 50,000u Mon/Wed Medical History: Reviewed Medications: Reviewed Surgical History: Reviewed Family history: Reviewed Allergies: Reviewed. [facility] Social History: No tobacco, no etoh Code Status: Full Code Admission Exam Per Admitting Provider General: A&Ox3. NAD. Cooperative. HEENT: Atraumatic, normocephalic. Pulm: CTAB A&P. -wheezes, -rales, -rhonchi. Symmetrical chest rise. No increased work of breathing. No respiratory distress. Cardiac: Irregular, tachycardic, systolic murmur present. Radial pulses intact and symmetrical. Abdominal: Nontender, nondistended, soft. BS present. Extremities: Dental Hygiene Instructor strength and elbow flexion intact bilaterally, left audio production engineer strength and elbow flexion are intact but qualitatively less than the right approximately 4 -/5. Right hip flexion limited by pain at the proximal hip, ankle dorsiflexion/plantarflexion 5/5. Left hip flexion, ankle dorsiflexion/plantarflexion with unclear assessment as patient does not move and falls back asleep sitting his hip hurts during attempted strength exams, but does dorsiflex foot and flex the hip slightly during skin exam. Endorses sensation is intact to soft touch in hands and feet bilaterally without asymmetry. Pupils are equal and reactive to light. Visual garza grossly intact, hearing grossly intact. Tongue protrudes midline. No facial asymmetry. Right buttock is tender to palpation with some radiation down into the mid thigh. Sacral ulcer is present covered with dressing. Right foot with medial and lateral pressure wounds, no warmth/eryt david/discharge. Heel cup in place. Principal Dx & Hospital Course #1 = Principal Diagnosis (1) Fall: (2) Cerebrovascular accident (CVA) with intracranial hemorrhage: (3) Stenosis of intracranial portion of both internal carotid arteries: (4) Valvular heart disease: (5) Atrial fibrillation: (6) Acute heart failure with preserved ejection fraction (HFpEF): (7) Atrial fibrillation with RVR: (8) Complicated UTI (urinary tract infection): Plan Fall, no reported loss of consciousness -Patient with recent right MCA with mild hemorrhagic conversion. Recently admitted to [facility] for eval and management, has ultimately been transitioned back to warfarin therapy -CThead this admission: No hemorrhage, mass effect, or acute ischemia by CT criteria. Prior right MCA infarct noted with additional foci of encephalomalacia in left frontal and left parietal -CTC-spine: No acute fracture or subluxation noted -CXR: Cardiomegaly, no acute findings -CTA/P: No acute abnormalities are seen -Lumbar spine CT: 1. There is no evidence of fracture or malalignment involving the lumbar spine. 2. Osteopenia and spondylotic change -Patient denies fever, chills, dysuria or other infectious symptoms. Urine is very dark in Lay catheter and is with a leukocytosis, patient reports while in his [facility] cell he has had use of bathroom more often and was attempting to ambulate to the bathroom when he fell/sent to the ground UA with bacteria and WBC, contaminated appearing however will treat with Keflex 500 q6h for possible UTI -Fall precautions, should be monitored as closely as possible to prevent falls/injuries given high risk of bleeding Afib RVR, acute on chronic, stable -Admitting EKG: A-fib with RVR, rate 141, borderline ST depressions in anterior leads. QTc 407. -Patient with A-fib and RVR, did not get morning medications. Troponin with mild ST depressions on EKG, suspect demand ischemia, no further intervention -500 cc NSS bolus given for clinical volume contraction with elevated creatinine/BUN ratio, metoprolol ordered this was missed in the morning. Rate improving to 90s with interventions -Continue warfarin and aspirin, confirmed with Neurology. INR 4.1 today, hold warfarin dose today and follow up INR Hx R MCA Stroke w/ Hemorrhagic Transformation, chronic. Stable with no evidence of rebleed at time of admission -07/04/2021 [facility] discharge summary reviewed: CTh stable and patient was continued on heparin infusion. CTh 24 hours post therapeutic heparin level stable without hemorrhage Patient was switched to warfarin with Lovenox 1 mg/kg twice daily for bridging Lipitor was held for transaminitis, improved once LFTs were less than 2 times normal limits Patient was discharged to the [facility] 07/04/2022 on aspirin, atorvastatin 40 mg, and warfarin with goal INR 23 -Continue warfarin, holding doses as necessary -No evidence of rebleed on CT head -Patientis mentating at near normal baseline at time of discharge evaluation Hip pain, acute -CTA/P without evidence of hip fracture, due to patient pain in right hip radiating to mid thigh additional x-ray of the femur ordered, no fracture -With known PAD, capillary refill appropriate for known disease -Dose reduced Tylenol as needed UTI -Has chronic indwelling Lay, complication of care -Patient endorses urinary frequency without burning, no fever/ch ills/nausea/vomiting -UA and leukocytosis suggest possible UTI, will treat with Keflex 500 q6h x7 days for complicated UTI. UCx pending, prescription sent Sacral wound -Stage I on the right heel, unstageable DTI on the left, and a DTI on the sacrum per Wound Care. -Also noted to have eschar on the left great toe, multiple scattered intact small eschars on the dorsal toes of the left foot, and a stable eschar on the left lateral fifth toe as well. The right 2nd toe is intact, but ecchymotic -Known history of PAD, low ABIs bilaterally of 0.69 this admission -Has been considered for revascularization in the past, follow up outpatient -Local wound care Discharge Exam Constitutional WD/WN, vitals as above Respiratory normal respiratory effort, lungs clear to auscultation Cardiovascular HR irregularly irregular Skin L great toe and left foot eschars, bruised right 2nd toe Updated Medication List Medication Instructions Recorded Confirmed Type atorvastatin 20 mg tablet 20 mg PO HS 06/27/22 07/24/22 History bisacodyl 10 mg rectal suppository 10 mg PA BID PRN Constipation 06/27/22 07/24/22 History metoprolol tartrate 50 mg tablet 50 mg PO BID 06/27/22 07/24/22 History ergocalciferol (vitamin D2) 1,250 1,250 mcg PO WK 07/24/22 07/24/22 History mcg (50,000 unit) capsule (Vitamin D2) hydrochlorothiazide 12.5 mg capsule 12.5 mg PO DAILY 07/24/22 07/24/22 History tamsulosin 0.4 mg capsule 0.4 mg PO DAILY 07/24/22 07/24/22 History warfarin 5 mg tablet 5 mg PO DAILY 07/24/22 07/24/22 History aspirin 81 mg tablet,delayed 81 mg PO QAM 30 days #30 tabs 07/25/22 Rx release cephalexin 500 mg capsule 500 mg PO QID 7 days #28 caps 07/25/22 Rx Hospital Stay Data Consultations 07/25/22 08:14 Consult Neurology Routine Diagnostic Imagining Performed 07/24/22 06:18 CT Brain [CT head/brain wo con] Stat CT cervical spine wo con Stat 07/24/22 07:18 CT abd pelvis wo con Stat CT lumbar spine wo con Stat Pending Results Patient Have Any Pending Studies at Discharge: Yes (Urine culture) Discharge Instructions Given to Patient (Per Discharging Provider) Fall, no reported loss of consciousness -Patient with recent right MCA with mild hemorrhagic conversion. Recently admitted to [facility] for eval and management, has ultimately been transitioned back to warfarin therapy -CThead this admission: No hemorrhage, mass effect, or acute ischemia by CT criteria. Prior right MCA infarct noted with additional foci of encephalomala padmini in left frontal and left parietal -CTC-spine: No acute fracture or subluxation noted -CXR: Cardiomegaly, no acute findings -CTA/P: No acute abnormalities are seen -Lumbar spine CT: 1. There is no evidence of fracture or malalignment involving the lumbar spine. 2. Osteopenia and spondylotic change -Patient denies fever, chills, dysuria or other infectious symptoms. Urine is very dark in Lay catheter and is with a leukocytosis, patient reports while in his [facility] cell he has had use of bathroom more often and was attempting to ambulate to the bathroom when he fell/sent to the ground UA with bacteria and WBC, contaminated appearing however will treat with Keflex 500 q6h for possible UTI -Fall precautions, should be monitored as closely as possible to prevent falls/injuries given high risk of bleeding Afib RVR, acute on chronic, stable -Admitting EKG: A-fib with RVR, rate 141, borderline ST depressions in anterior leads. QTc 407. -Patient with A-fib and RVR, did not get morning medications. Troponin with mild ST depressions on EKG, suspect demand ischemia, no further intervention -500 cc NSS bolus given for clinical volume contraction with elevated creatinine/BUN ratio, metoprolol ordered this was missed in the morning. Rate improving to 90s with interventions -Continue warfarin and aspirin, confirmed with Neurology. INR 4.1 today, hold warfarin dose today and follow up INR Hx R MCA Stroke w/ Hemorrhagic Transformation, chronic. Stable with no evidence of rebleed at time of admission -07/04/2021 [facility] discharge summary reviewed: CTh stable and patient was continued on heparin infusion. CTh 24 hours post therapeutic heparin level stable without hemorrhage Patient was switched to warfarin with Lovenox 1 mg/kg twice daily for bridging Lipitor was held for transaminitis, improved once LFTs were less than 2 times normal limits Patient was discharged to the [facility] 07/04/2022 on aspirin, atorvastatin 40 mg, and warfarin with goal INR 23 -Continue warfarin, holding doses as necessary -No evidence of rebleed on CT head -Patientis mentating at near normal baseline at time of discharge evaluation Hip pain, acute -CTA/P without evidence of hip fracture, due to patient pain in right hip radiating to mid thigh additional x-ray of the femur ordered, no fracture -With known PAD, capillary refill appropriate for known disease -Dose reduced Tylenol as needed UTI -Patient endorses urinary frequency without burning, no fever/chills/nausea/vomiting -UA and leukocytosis suggest possible UTI, will treat with Keflex 500 q6h for complicated UTI. UCx pending, prescription sent. Total Time Total Time Spent Total Time Spent (In Minutes): 40 min Coding Level of Care Code 54775 INP/OBS DISCH >30 MIN Diagnoses Fall W19.XXXA Encounter type: initial encounter Cerebrovascular accident (CVA) with intracranial hemorrhage I61.9 Stenosis of intracranial portion of both internal carotid arteries I65.23 Valvular heart disease I38 Atrial fibrillation I48.91 Atrial fibrillation type: unspecified Acute heart failure with preserved ejection fraction (HFpEF) I50.31 Atrial fibrillation with RVR I48.91 Complicated UTI (urinary tract infection) N39.0
[2022-07-25] MEDS ORDERED: WARFARIN SOD 5 MG TAB PO SCH (16:00)
--- NOTE | 2022-07-26 05:30 | Electrocardiogram Report ---
Test Reason : Blood Pressure : / mmHG Vent. Rate : 141 BPM Atrial Rate : 000 BPM P-R Int : 000 ms QRS Dur : 086 ms QT Int : 266 ms P-R-T Axes : 000 049 219 degrees QTc Int : 407 ms Atrial fibrillation with rapid ventricular response Minimal voltage criteria for LVH, may be normal variant Marked ST abnormality, possible anterolateral subendocardial injury Abnormal ECG When compared with ECG of 27-JUN-2022 18:02, Vent. rate has increased BY 49 BPM Confirmed by Layo Ley ([id number]) on 07/26/2022 5:30:18 AM Referred By: Confirmed By:Layo Ley
[2022-07-26] MEDS ORDERED: ASPIRIN 81 MG ECTAB PO SCH (09:00)
[2022-07-26] MEDS ORDERED: WARFARIN SOD 5 MG TAB PO SCH (16:00)
== END 2022-07-25 13:45 ==
LOC: ED 06:06 → 2S 06:06 → SUATTDRO 11:03 → 2S 15:11